=== PATIENT | female | born 1935 | race African-American/Black ===

== ENCOUNTER 2016-10-15 14:22 | Observation (INO) | payer MEDICARE, OTHER ==
[2016-10-15] MEDS ORDERED: NORMAL SALINE 1000 ML 1,000 ML IV PRN ×2 (16:03→17:25)
--- NOTE | 2016-10-15 16:05 | ER Document Report ---
ED General - General Chief Complaint: Direct Admit / Private MD Stated Complaint: POSSIBLE WEIGHT LOSS Time Seen by Provider: 10/15/16 15:43 Mode of Arrival: Ambulatory Information source: Patient TRAVEL OUTSIDE OF THE [place] IN LAST 30 DAYS: No - HPI Patient complains to provider of: generalized weakness, weight loss Onset: Other - 3 week Onset/Duration: Gradual Quality of pain: Achy Severity: Mild Pain Level: 2 Associated symptoms: Body/muscle aches, Weakness Notes: Patient is an 80-year-old female sent to the emergency room by primary care provider for admission for generalized weakness with weight loss over the past few weeks, patient reports diffuse body aches and generalized weakness, unfortunately there are no beds available at this time so she came to the emergency room for admission - Related Data Allergies/Adverse Reactions: Sulfa (Sulfonamide Antibiotics) Allergy (Verified 03/11/15 09:19) SWELLING AND ITCHING Past Medical History - General Information source: Patient - Social History Smoking Status: Unknown if Ever Smoked Family History: Reviewed & Not Pertinent Patient has suicidal ideation: No Patient has homicidal ideation: No - Past Medical History Cardiac Medical History: Reports: Hx Hypertension Denies: Hx Coronary Artery Disease, Hx Heart Attack Pulmonary Medical History: Reports: Hx Asthma - CHILD Denies: Hx Bronchitis, Hx COPD, Hx Pneumonia Neurological Medical History: Denies: Hx Cerebrovascular Accident, Hx Seizures Renal/ Medical History: Denies: Hx Peritoneal Dialysis GI Medical History: Reports: Hx Ulcer - STOMACH/SURGERY. Denies: Hx Hepatitis, Hx Hiatal Hernia Musculoskeltal Medical History: Reports Hx Arthritis Psychiatric Medical History: Reports: Hx Depression Infectious Medical History: Denies: Hx Hepatitis Past Surgical History: Reports: Hx Hysterectomy. Denies: Hx Mastectomy, Hx Open Heart Surgery, Hx Pacemaker - Immunizations Hx Diphtheria, Pertussis, Tetanus Vaccination: No Hx Pneumococcal Vaccination: 12/31/14 Review of Systems - Review of Systems Constitutional: See HPI EENT: No symptoms reported Cardiovascular: No symptoms reported Respiratory: No symptoms reported Gastrointestinal: No symptoms reported Genitourinary: No symptoms reported Female Genitourinary: No symptoms reported Musculoskeletal: See HPI Skin: No symptoms reported Hematologic/Lymphatic: No symptoms reported Neurological/Psychological: No symptoms reported -: Yes All other systems reviewed and negative Physical Exam - Vital signs Vitals: Temp Pulse Resp BP Pulse Ox 98.2 F 86 20 107/67 97 10/15/16 14:37 10/15/16 14:37 10/15/16 14:37 10/15/16 14:37 10/15/16 14:37 Interpretation: Normal - General General appearance: Appears well, Alert - HEENT Head: Normocephalic, Atraumatic Eyes: Normal Pupils: PERRL - Respiratory Respiratory status: No respiratory distress Chest status: Nontender Breath sounds: Normal Chest palpation: Normal - Cardiovascular Rhythm: Regular Heart sounds: Normal auscultation Murmur: No - Abdominal Inspection: Normal Distension: No distension Bowel sounds: Normal Tenderness: Nontender Organomegaly: No organomegaly - Back Back: Normal, Nontender - Extremities General upper extremity: Normal inspection, Nontender, Normal color, Normal ROM , Normal temperature General lower extremity: Normal inspection, Nontender, Normal color, Normal ROM , Normal temperature. No: Oleg's sign - Neurological Neuro grossly intact: Yes Cognition: Normal Orientation: AAOx4 Harshad Coma Scale Eye Opening: Spontaneous Harshad Coma Scale Verbal: Oriented Harshad Coma Scale Motor: Obeys Commands Seneca Coma Scale Total: 15 Speech: Normal - Psychological Associated symptoms: Normal affect, Normal mood - Skin Skin Temperature: Warm Skin Moisture: Dry Skin Color: Normal Course - Vital Signs Vital signs: Temp Pulse Resp BP Pulse Ox 98.8 F 78 15 134/66 H 100 10/15/16 17:46 10/15/16 17:46 10/15/16 17:46 10/15/16 17:46 10/15/16 17:46 - Laboratory Result Diagrams: 10/15/16 16:30 10/15/16 16:30 Laboratory results interpreted by me: 10/15/16 10/15/16 16:30 16:30 MCV 98 H Creatinine 1.26 H Est GFR ( Amer) 49 L Est GFR (Non-Af Amer) 41 L Direct Bilirubin 0.6 H Creatine Kinase 197 H Total Protein 8.5 H - Diagnostic Test Radiology reviewed: Image reviewed, Reports reviewed Discharge - Discharge Clinical Impression: Weight loss, Generalized weakness Condition: Fair Disposition: ADMITTED OBSERVATION Admitting Provider: [facility] Unit Admitted: Telemetry
[2016-10-15 17:01] LABS: ABSOLUTE EOSINOPHILS # (AUTO) 0.1 10^3/uL (0.0-0.6); ABSOLUTE LYMPHOCYTES (AUTO) 0.6 10^3/uL (0.5-4.7); ABSOLUTE MONOCYTES (AUTO) 0.3 10^3/uL (0.1-1.4); ABSOLUTE NEUT (AUTO) 3.2 10^3/uL (1.7-8.2); BASOPHILS % (AUTO) 0.8 % (0-2); EOSINOPHILS % (AUTO) 1.4 % (0-6); HEMATOCRIT 44.1 % (36.0-47.0); HEMOGLOBIN 14.2 g/dL (12.0-15.5); HGB HCT DIFFERENCE -1.5; LYMPHOCYTES % (AUTO) 15.5 % (13-45); MEAN CORPUSCULAR HEMOGLOBIN 31.7 pg (27.0-33.4); MEAN CORPUSCULAR HGB CONC 32.2 g/dL (32.0-36.0); MEAN CORPUSCULAR VOLUME 98 fl (80-97); RED BLOOD COUNT 4.48 10^6/uL (3.72-5.28); RED CELL DISTRIBUTION WIDTH 12.7 % (11.5-14.0); SEGMENTED NEUTROPHILS % (AUTO) 75.3 % (42-78); WHITE BLOOD COUNT 4.2 10^3/uL (4.0-10.5)
[2016-10-15 17:25] LABS: ALANINE AMINOTRANSFERASE 29 U/L (9-52); ALBUMIN 4.5 g/dL (3.5-5.0); ALKALINE PHOSPHATASE 73 U/L (38-126); ANION GAP 16 (5-19); ASPARTATE AMINO TRANSFERASE 35 U/L (14-36); BILIRUBIN,DIRECT 0.6 mg/dL (0.0-0.4); BILIRUBIN,TOTAL 0.6 mg/dL (0.2-1.3); BLOOD UREA NITROGEN 18 mg/dL (7-20); CALCIUM 10.1 mg/dL (8.4-10.2); CARBON DIOXIDE 25 mmol/L (22-30); CHLORIDE 100 mmol/L (98-107); CREATINE KINASE 197 U/L (30-135); CREATININE RESULT 1.26 mg/dL (0.52-1.25); GLUCOSE 94 mg/dL (75-110); POTASSIUM 3.9 mmol/L (3.6-5.0); SODIUM 140.9 mmol/L (137-145); TOTAL PROTEIN 8.5 g/dL (6.3-8.2)
[2016-10-15 17:49] LABS: TROPONIN I < 0.012 ng/mL
[2016-10-15 17:53] LABS: THYROID STIMULATING HORMONE 2.52 uIU/mL (0.47-4.68)
[2016-10-15] MEDS ORDERED: KETOROLAC TROMETHAMINE INJ/PF 30 MG/1 ML SDV IV ONE (20:34)
[2016-10-15] MEDS ORDERED: KETOROLAC TROMETHAMINE INJ/PF 30 MG/1 ML SDV ONE (20:39)
[2016-10-15 20:55] VITALS: BP 137/85
--- NOTE | 2016-10-15 21:42 | PDOC H&P ---
History of Present Illness Admission Date/PCP: 10/15/16 16:39 GAIL DWYER MD History of Present Illness: KELLEY BAEZA is a 80 year old female, she came to the office today with multiple complaints,malaise,weight loss ,fatique she was admitted directly from the office for evaluation of these symptoms, a CAT scan of the chest, abdomen and pelvis was done with contrast and it was negative for any pathology that would explain her weight loss or any of these symptoms. She was supposedly admitted for observation and management but she wants to go home tonight. She complained of pain in the back most likely from arthritis, she was given Toradol IV. Past Medical History Cardiac Medical History: Reports: Hypertension Pulmonary Medical History: Reports: Asthma - CHILD Neurological Medical History: Reports: Ischemic CVA Musculoskeltal Medical History: Reports: Arthritis Psychiatric Medical History: Reports: Depression Social History Smoking Status: Never Smoker Frequency of Alcohol Use: None Hx Recreational Drug Use: No Drugs: None Hx Prescription Drug Abuse: No Family History Family History: Reviewed & Not Pertinent Parental Family History Reviewed: Yes Children Family History Reviewed: Yes Sibling(s) Family History Reviewed.: Yes Medication/Allergy Allergies/Adverse Reactions: Sulfa (Sulfonamide Antibiotics) Allergy (Verified 03/11/15 09:19) SWELLING AND ITCHING Review of Systems Constitutional: PRESENT: anorexia, weight loss Eyes: ABSENT: visual disturbances Ears: ABSENT: hearing changes Cardiovascular: ABSENT: chest pain, dyspnea on exertion, edema, orthropnea, palpitations Respiratory: ABSENT: cough, hemoptysis Gastrointestinal: PRESENT: nausea Genitourinary: ABSENT: dysuria, hematuria Musculoskeletal: ABSENT: joint swelling Integumentary: ABSENT: rash, wounds Neurological: ABSENT: abnormal gait, abnormal speech, confusion, dizziness, focal weakness, syncope Psychiatric: ABSENT: anxiety, depression, homidical ideation, suicidal ideation Endocrine: ABSENT: cold intolerance, heat intolerance, menstrual abnormalities, polydipsia, polyuria Hematologic/Lymphatic: ABSENT: easy bleeding, easy bruising, lymphadenopathy Physical Exam Vital Signs: Temp Pulse Resp BP Pulse Ox 98.3 F 84 16 137/85 H 100 10/15/16 19:32 10/15/16 19:32 10/15/16 19:32 10/15/16 19:32 10/15/16 19:32 Intake & Output 0610/15/16 10/16/16 06:59 06:59 06:59 Intake Total 100 Balance 100 Weight 60.781 kg General appearance: PRESENT: no acute distress Head exam: PRESENT: atraumatic, normocephalic Eye exam: ABSENT: scleral icterus Ear exam: PRESENT: normal external ear exam Cardiovascular exam: PRESENT: RRR, +S1, +S2 Vascular exam: PRESENT: normal capillary refill GI/Abdominal exam: PRESENT: normal bowel sounds, soft Rectal exam: PRESENT: deferred Neurological exam: PRESENT: alert, awake, oriented to person, oriented to place , oriented to time, oriented to situation, CN II-XII grossly intact Psychiatric exam: PRESENT: appropriate affect, normal mood Skin exam: PRESENT: dry, intact, warm Assessment & Plan - Diagnosis (1) Generalized weakness Is this a current diagnosis for this admission?: YesPlan: Patient was admitted for observation and evaluation of symptoms of generalized weakness, weight loss, the CAT scan that was done was negative on the blood work was negative (2) Weight loss Is this a current diagnosis for this admission?: Yes
--- NOTE | 2016-10-15 23:45 | RADIOLOGY REPORT (SQ) ---
EXAM DESCRIPTION: CT CHEST WITH; CT ABD/PELVIS WITH IV ONLY COMPLETED DATE/TIME: 10/15/2016 6:51 pm; 10/15/2016 6:53 pm REASON FOR STUDY: pain, wt loss CONTRAST TYPE AND DOSE: contrast/concentration: Isovue 370.00 mg/ml; Total Contrast Delivered: 100.0 ml; Total Saline Delivered: 50.0 ml RENAL FUNCTION: GFR > 60. COMPARISON: None. TECHNIQUE: CT scan of the chest performed using helical scanning technique with dynamic intravenous contrast injection. Images reviewed with lung, soft tissue and bone windows. Reconstructed coronal a nd sagittal MPR images reviewed. All images stored on PACS. All CT scanners at this facility use dose modulation, iterative reconstruction, and/or weight based d osing when appropriate to reduce radiation dose to as low as reasonably achievable (ALARA). [facility]: Dose Right [facility]: CareDose [facility]: Dose Right [facility]: [employer]Again[employer] [facility]: Railpod RADIATION DOSE: 5.48; 12.42. LIMITATIONS: None. FINDINGS: AXILLAE: No adenopathy. CHEST WALL: No masses. No subcutaneous air. LUNGS: No nodules or masses. No pneumothorax. No infiltrates. PLEURA: No effusions. No calcifications. THYROID: No masses or significant asymmetry. HILAR AND MEDIASTINAL STRUCTURES: No identified masses or abnormal nodes. AORTA AND GREAT VESSELS: No aneurysm. No dissection. PULMONARY ARTERIES: No identified pulmonary emboli. Study not optimized for the pulmonary arteries. HEART: No pericardial effusion. HARDWARE AND LIFELINES: None. BONES: No significant finding. OTHER: No other significant finding. IMPRESSION: No acute findings. COMPARISON: None. RADIATION DOSE: 5.48; 12.42mGy. TECHNIQUE: CT scan of the abdomen and pelvis performed with intravenous and oral contrast using jonathan jessica scanning technique with dynamic intravenous contrast injection. Images reviewed with lung, soft tissue and bone windows. Reconstructed coronal and sagittal MPR images reviewed. Delayed images for evaluation of the urinary system also acquired and evaluated. All images stored on PACS. All CT scanners at this facility use dose modulation, iterative reconstruction, and/or weight based d osing when appropriate to reduce radiation dose to as low as reasonably achievable (ALARA). [facility]: Dose Right [facility]: SureCare [facility]: Dose Right [facility]: Mytonomy[employer] 4D [facility]: Railpod FINDINGS: LIVER: Normal size. No masses or dilated ducts. SPLEEN: Normal size. No focal lesions. PANCREAS: No masses. No significant calcifications. No adjacent inflammation or peripancreatic flui d collections. Pancreatic duct not dilated. GALLBLADDER: No identified stones by CT criteria. No inflammatory changes to suggest cholecystitis. ADRENAL GLANDS: No significant masses or asymmetry. RIGHT KIDNEY AND URETER: No solid masses. Multiple cysts. Small calcification. No hydronephrosis or hydroureter. LEFT KIDNEY AND URETER: No solid masses. Multiple cysts. Small calcification. No hydronephrosis or hydroureter. AORTA AND VESSELS: No aneurysm. No dissection. Renal arteries, SMA, celiac without stenosis. RETROPERITONEUM: No retroperitoneal adenopathy, hemorrhage or masses. LARGE AND SMALL BOWEL: No dilatation. No masses. No wall thickening. APPENDIX: Normal. ABDOMINAL WALL: No hernia or masses. PERITONEAL CAVITY: No free air. No free fluid. No peritoneal implants or masses. PELVIS: No mass or free fluid. Normal bladder. BONES: No acute findings. Posterior lumbar fusion hardware. OTHER: No other significant finding. IMPRESSION: No acute findings. TECHNICAL DOCUMENTATION: JOB ID: [id number] Quality ID # 436: Final reports with documentation of one or more dose reduction techniques (e.g., Au tomated exposure control, adjustment of the mA and/or kV according to patient size, use of iterative reconstruction technique) 2010 [employer]- All Rights Reserved
--- NOTE | 2016-10-15 23:45 | RADIOLOGY REPORT (SQ) ---
EXAM DESCRIPTION: CT CHEST WITH; CT ABD/PELVIS WITH IV ONLY COMPLETED DATE/TIME: 10/15/2016 6:51 pm; 10/15/2016 6:53 pm REASON FOR STUDY: pain, wt loss CONTRAST TYPE AND DOSE: contrast/concentration: Isovue 370.00 mg/ml; Total Contrast Delivered: 100.0 ml; Total Saline Delivered: 50.0 ml RENAL FUNCTION: GFR > 60. COMPARISON: None. TECHNIQUE: CT scan of the chest performed using helical scanning technique with dynamic intravenous contrast injection. Images reviewed with lung, soft tissue and bone windows. Reconstructed coronal a nd sagittal MPR images reviewed. All images stored on PACS. All CT scanners at this facility use dose modulation, iterative reconstruction, and/or weight based d osing when appropriate to reduce radiation dose to as low as reasonably achievable (ALARA). [facility]: Dose Right [facility]: CareDose [facility]: Dose Right [facility]: [employer] [facility]: [employer] RADIATION DOSE: 5.48; 12.42. LIMITATIONS: None. FINDINGS: AXILLAE: No adenopathy. CHEST WALL: No masses. No subcutaneous air. LUNGS: No nodules or masses. No pneumothorax. No infiltrates. PLEURA: No effusions. No calcifications. THYROID: No masses or significant asymmetry. HILAR AND MEDIASTINAL STRUCTURES: No identified masses or abnormal nodes. AORTA AND GREAT VESSELS: No aneurysm. No dissection. PULMONARY ARTERIES: No identified pulmonary emboli. Study not optimized for the pulmonary arteries. HEART: No pericardial effusion. HARDWARE AND LIFELINES: None. BONES: No significant finding. OTHER: No other significant finding. IMPRESSION: No acute findings. COMPARISON: None. RADIATION DOSE: 5.48; 12.42mGy. TECHNIQUE: CT scan of the abdomen and pelvis performed with intravenous and oral contrast using jonathan jessica scanning technique with dynamic intravenous contrast injection. Images reviewed with lung, soft tissue and bone windows. Reconstructed coronal and sagittal MPR images reviewed. Delayed images for evaluation of the urinary system also acquired and evaluated. All images stored on PACS. All CT scanners at this facility use dose modulation, iterative reconstruction, and/or weight based d osing when appropriate to reduce radiation dose to as low as reasonably achievable (ALARA). [facility]: Dose Right [facility]: SureCare [facility]: Dose Right [facility]: [employer] 4D [facility]: [employer] FINDINGS: LIVER: Normal size. No masses or dilated ducts. SPLEEN: Normal size. No focal lesions. PANCREAS: No masses. No significant calcifications. No adjacent inflammation or peripancreatic flui d collections. Pancreatic duct not dilated. GALLBLADDER: No identified stones by CT criteria. No inflammatory changes to suggest cholecystitis. ADRENAL GLANDS: No significant masses or asymmetry. RIGHT KIDNEY AND URETER: No solid masses. Multiple cysts. Small calcification. No hydronephrosis or hydroureter. LEFT KIDNEY AND URETER: No solid masses. Multiple cysts. Small calcification. No hydronephrosis or hydroureter. AORTA AND VESSELS: No aneurysm. No dissection. Renal arteries, SMA, celiac without stenosis. RETROPERITONEUM: No retroperitoneal adenopathy, hemorrhage or masses. LARGE AND SMALL BOWEL: No dilatation. No masses. No wall thickening. APPENDIX: Normal. ABDOMINAL WALL: No hernia or masses. PERITONEAL CAVITY: No free air. No free fluid. No peritoneal implants or masses. PELVIS: No mass or free fluid. Normal bladder. BONES: No acute findings. Posterior lumbar fusion hardware. OTHER: No other significant finding. IMPRESSION: No acute findings. TECHNICAL DOCUMENTATION: JOB ID: [id number] Quality ID # [id number]: Final reports with documentation of one or more dose reduction techniques (e.g., Au tomated exposure control, adjustment of the mA and/or kV according to patient size, use of iterative reconstruction technique) 2010 [employer]- All Rights Reserved
--- NOTE | 2016-10-18 18:31 | PDOC DISCHARGE SUMMARY ---
General - Admit/Disc Date/PCP Admission Date/Primary Care Provider: 10/15/16 16:39 GAIL DYWER MD Discharge Date: 10/15/16 - Discharge Diagnosis (1) Generalized weakness Is this a current diagnosis for this admission?: Yes (2) Weight loss Is this a current diagnosis for this admission?: Yes - Additional Information Discharge Activity: Activity As Tolerated, Balance Activity w/Rest History of Present Illness History of Present Illness: KELLEY BAEZA is a 80 year old female, she came to the office today with multiple complaints,malaise,weight loss ,fatique she was admitted directly from the office for evaluation of these symptoms, a CAT scan of the chest, abdomen and pelvis was done with contrast and it was negative for any pathology that would explain her weight loss or any of these symptoms. She was supposedly admitted for observation and management but she wants to go home tonight. She complained of pain in the back most likely from arthritis, she was given Toradol IV. Hospital Course Hospital Course: She was admitted this afternoon for evaluation of weight loss generalized body weakness fatigue, the CAT scan the blood work that was done was on negative for any acute pathology, she was treated with IV fluids, she wants to go home today Physical Exam Vital Signs: Temp Pulse Resp BP Pulse Ox 98.3 F 84 16 137/85 H 100 10/15/16 19:32 10/15/16 19:32 10/15/16 19:32 10/15/16 19:32 10/15/16 19:32 General appearance: PRESENT: no acute distress Head exam: PRESENT: atraumatic, normocephalic Eye exam: PRESENT: conjunctiva pink, EOMI, PERRLA Neck exam: PRESENT: full ROM Respiratory exam: PRESENT: clear to auscultation gretta Cardiovascular exam: PRESENT: RRR, +S1, +S2 Vascular exam: PRESENT: normal capillary refill GI/Abdominal exam: PRESENT: normal bowel sounds, soft Rectal exam: PRESENT: deferred Neurological exam: PRESENT: alert, awake, oriented to person, oriented to place , oriented to time, oriented to situation, CN II-XII grossly intact Skin exam: PRESENT: dry, intact, warm Results Impressions: Abdomen/Pelvis CT 10/15/16 16:02 IMPRESSION: No acute findings. IMPRESSION: No acute findings. Chest CT 10/15/16 16:02 IMPRESSION: No acute findings. IMPRESSION: No acute findings.
== END 2016-10-15 22:30 | disposition home or self-care (01) ==
LOC: ER 14:22 → 4N 16:39
PROVIDERS: ADMIT Internal Medicine; ATTEND Internal Medicine
DX: R53.1 Weakness (principal); R63.4 Abnormal weight loss; M54.9 Dorsalgia, unspecified; R63.0 Anorexia; R11.0 Nausea; R53.81 Other malaise; R53.83 Other fatigue; M19.90 Unspecified osteoarthritis, unspecified site; Z90.710 Acquired absence of both cervix and uterus; Z98.890 Other specified postprocedural states; Z87.11 Personal history of peptic ulcer disease; Z68.23 Body mass index [BMI] 23.0-23.9, adult
CPT/HCPCS: 36415; 84439; 82553; 82550; 84443; 85025; 80053; 84484; 71260; 74177; G0378; G0379; J1885; J7030

== ENCOUNTER 2016-10-27 12:46 | Emergency (ER) | payer MEDICARE, OTHER ==
[2016-10-27] MEDS ORDERED: ONDANSETRON 4 MG TAB.RAPDIS PO ONE ×2 (13:28→15:16)
--- NOTE | 2016-10-27 13:28 | ER Document Report ---
ED Medical Screen (RME) - General Chief Complaint: Nausea/Vomiting Stated Complaint: VOMITING Time Seen by Provider: 10/27/16 13:23 Notes: Patient is an 80-year-old female who presents with 1 day of nausea and vomiting. She was admitted to the hospital 2 weeks ago for weight loss and lack of appetite. Since then she is felt the same way and has not eaten much. Last bowel movement was 2 days ago. She denies abdominal pain, urinary symptoms , fevers, chest pain, shortness of breath, back pain or headache. PE: Abdomen soft and non-tender. RRR. Lungs CTAB. I have greeted and performed a rapid initial assessment of this patient. A comprehensive ED assessment and evaluation of the patient, analysis of test results and completion of the medical decision making process will be conducted by additional ED providers. TRAVEL OUTSIDE OF THE [place] IN LAST 30 DAYS: No - Related Data Allergies/Adverse Reactions: Sulfa (Sulfonamide Antibiotics) Allergy (Verified 03/11/15 09:19) SWELLING AND ITCHING Past Medical History - Past Medical History Cardiac Medical History: Reports: Hx Hypertension Denies: Hx Coronary Artery Disease, Hx Heart Attack Pulmonary Medical History: Reports: Hx Asthma - CHILD Denies: Hx Bronchitis, Hx COPD, Hx Pneumonia Neurological Medical History: Denies: Hx Cerebrovascular Accident, Hx Seizures Renal/ Medical History: Denies: Hx Peritoneal Dialysis GI Medical History: Reports: Hx Ulcer - STOMACH/SURGERY. Denies: Hx Hepatitis, Hx Hiatal Hernia Musculoskeltal Medical History: Reports Hx Arthritis Psychiatric Medical History: Reports: Hx Depression Infectious Medical History: Denies: Hx Hepatitis Past Surgical History: Reports: Hx Hysterectomy. Denies: Hx Mastectomy, Hx Open Heart Surgery, Hx Pacemaker - Immunizations Hx Diphtheria, Pertussis, Tetanus Vaccination: No Physical Exam - Vital signs Vitals: Temp Pulse Resp BP Pulse Ox 98.3 F 68 18 142/63 H 94 10/27/16 12:50 10/27/16 12:50 10/27/16 12:50 10/27/16 12:50 10/27/16 12:50 Course - Vital Signs Vital signs: Temp Pulse Resp BP Pulse Ox 98.3 F 68 18 142/63 H 94 10/27/16 12:50 10/27/16 12:50 10/27/16 12:50 10/27/16 12:50 10/27/16 12:50
--- NOTE | 2016-10-27 14:29 | ER Document Report ---
ED General - General Chief Complaint: Nausea/Vomiting Stated Complaint: VOMITING Time Seen by Provider: 10/27/16 13:23 Notes: Patient is here with complaint of vomiting this morning and feeling weak this morning. She says she has vomited a couple of times. Does not eat very well chronically. Has chronic constipation but does not feel there is been any change in her bowel movements today. No diarrhea. Has not had any fever. Denies any UTI symptoms. Says she occasionally has some shortness of breath, but no cough or cold or chest congestion. Patient has had a hysterectomy and perhaps one other abdominal surgery that she cannot recall. Currently on medications for hypertension. Not diabetic. No heart disease. Has chronic back and leg pains. TRAVEL OUTSIDE OF THE [place] IN LAST 30 DAYS: No - Related Data Allergies/Adverse Reactions: Sulfa (Sulfonamide Antibiotics) Allergy (Verified 03/11/15 09:19) SWELLING AND ITCHING Past Medical History - Social History Smoking Status: Never Smoker Family History: Reviewed & Not Pertinent Patient has suicidal ideation: No Patient has homicidal ideation: No - Past Medical History Cardiac Medical History: Reports: Hx Hypertension Denies: Hx Coronary Artery Disease Pulmonary Medical History: Reports: Hx Asthma - CHILD Endocrine Medical History: Denies: Hx Diabetes Mellitus Type 1, Hx Diabetes Mellitus Type 2 GI Medical History: Reports: Hx Ulcer - STOMACH/SURGERY Musculoskeltal Medical History: Reports Hx Arthritis Psychiatric Medical History: Reports: Hx Depression Past Surgical History: Reports: Hx Hysterectomy - Immunizations Hx Diphtheria, Pertussis, Tetanus Vaccination: No Hx Pneumococcal Vaccination: 12/31/14 Review of Systems - Review of Systems Notes: REVIEW OF SYSTEMS: CONSTITUTIONAL : Denies fever. EENT: Denies eye, ear, nose or mouth or throat pain or other symptoms. CARDIOVASCULAR: Denies chest pain. RESPIRATORY: Denies cough, chest congestion, but occasional shortness of breath. GASTROINTESTINAL: Denies abdominal pain but has vomiting and nausea. Chronic constipation. GENITOURINARY: Denies difficulty or painful urinating, urinary frequency, blood in urine. MUSCULOSKELETAL: Denies back or neck pain. Denies joint pain or swelling. SKIN: Denies rash or skin lesions. NEUROLOGICAL: Denies LOC or altered mental status. Denies headache. Denies sensory loss or motor deficits. ALL OTHER SYSTEMS REVIEWED AND NEGATIVE. Physical Exam - Vital signs Vitals: Temp Pulse Resp BP Pulse Ox 98.3 F 68 18 142/63 H 94 10/27/16 12:50 10/27/16 12:50 10/27/16 12:50 10/27/16 12:50 10/27/16 12:50 Interpretation: Normal - Notes Notes: PHYSICAL EXAMINATION: GENERAL: Well-appearing, in no acute distress. Vital signs are all essentially normal. HEAD: Atraumatic, normocephalic. ENT: oropharynx clear without exudates. Moist mucous membranes. NECK: Normal range of motion, supple. LUNGS: Breath sounds clear and equal bilaterally. HEART: Regular rate and rhythm without murmurs. ABDOMEN: Soft, nontender. No guarding or rebound. No masses felt. No bruits heard. BACK: No tenderness throughout entire back. EXTREMITIES: Normal range of motion without pain. NEUROLOGICAL: Normal speech, normal gait. Normal sensory, motor, and reflex exams. Awake, alert, and oriented x3. PSYCH: Normal mood, normal affect. SKIN: Warm, dry, no rashes. Course - Re-evaluation Re-evalutation: 10/27/16 15:28 Labs are almost all normal. Creatinine is just slightly elevated. CPK also just slightly elevated. No evidence of UTI, although I will culture her urine. No evidence of significant dehydration. No indications for admission to the hospital. Patient says she is feeling better since she came in and was given the Zofran in triage. She says she is now feeling hungry. Reexamined her abdomen is soft and nontender still. I am going to slip her over and get an acute abdominal series and if it does not show any bowel pattern concerning for obstruction, I am going to discharge her on some Zofran to follow up or return as needed. - Vital Signs Vital signs: Temp Pulse Resp BP Pulse Ox 98.3 F 68 14 142/63 H 100 10/27/16 12:50 10/27/16 12:50 10/27/16 15:03 10/27/16 12:50 10/27/16 15:03 - Laboratory Result Diagrams: 10/27/16 14:05 10/27/16 14:05 Laboratory results interpreted by me: 10/27/16 10/27/16 10/27/16 14:05 14:05 14:40 Seg Neutrophils % 86.7 H Lymphocytes % 6.7 L Absolute Lymphocytes 0.3 L Creatinine 1.55 H Est GFR ( Amer) 39 L Est GFR (Non-Af Amer) 32 L Creatine Kinase 254 H Ur Leukocyte Esterase TRACE H Discharge - Discharge Clinical Impression: Vomiting Qualifiers: Vomiting type: unspecified Vomiting Intractability: non-intractable Nausea presence: with nausea Qualified Code(s): R11.2 - Nausea with vomiting, unspecified Condition: Stable Disposition: HOME, SELF-CARE Additional Instructions: VOMITING: Vomiting (or nausea without vomiting) can be caused by many other different problems. It can mean that something's wrong with the stomach, such as ulcers or inflammation or the intestinal tract, such as appendicitis. But it can also be a symptom of a problem that has nothing to do with the stomach or intestines. Vomiting is common with severe headaches, earaches, tonsillitis, and kidney infections, etc. We see it with pneumonia or heart attacks. Drugs can cause nausea and vomiting. Many abdominal problems cause vomiting; for example, gallstones, kidney stones, pancreatitis, and intestinal obstruction ( blocked bowels). In most cases, curing the vomiting depends on fixing the problem that caused it. For temporary relief, we may use an anti-nausea medicine. For home use, we can prescribe suppositories, chewable pills, pills that dissolve in the mouth, or liquid anti-nausea drugs. If the vomiting seems to be caused by a problem in the stomach, acid-suppressing drugs may be prescribed as well. It's important to avoid dehydration. Sip small amounts of clear liquids ( soft drinks, tea, broth, etc) . Try to take fluids frequently even if you are vomiting to prevent dehydration. Take increasing amounts of fluid and when liquids are being consumed successfully, advance to small amounts of bland food (toast, soups, mashed potatoes, etc.) until you are able to resume a regular diet. Avoid aspirin, tobacco, and alcohol. If the vomiting worsens, if the problem that's making you vomit worsens, or if there's evidence of bleeding in the stomach (such as black, tarry stool, or bloody or black vomit), you should return immediately. Also, return if abdominal pain worsens or becomes localized to one area or you develop high fever. Call your doctor if you aren't improved in 24 hours. VIRAL SYNDROME: The physician has diagnosed a viral infection. Viruses not only cause "colds," but can cause many different symptoms including generalized aching, fever, headache, cough, diarrhea, nausea, vomiting, and fatigue. The treatment, for the most part, is simply relief of symptoms. This means that antibiotics are usually not given. Rest, fluids, pain medications and, occasionally, medication for the specific symptoms that are most bothersome will be prescribed. Use good handwashing to avoid passing the virus to others. Shared toys should be cleaned with disinfectant. Clean the toilets, sinks, and counter surfaces in bathrooms. Launder clothing in hot water. Contact the physician if you develop any new or unusual symptoms such as severe headache, stiff neck, high fever, chest pain, productive cough, or shortness of breath. You should be rechecked if you don't see marked improvement within seven to 10 days. NORMAL EXAM AND WORKUP: At this time, your examination and workup show no significant abnormality. No significant abnormal physical findings were noted. All laboratory, EKG, and imaging (x-ray, CT scans, ultrasound) studies that were ordered show no significant abnormality. Although your examination and all studies that were ordered showed no significant abnormal finding, there are no examinations and no studies that are 100% accurate. There is always the possibility that some abnormality could exist and not be detected with physical examination or within the limits and capabilities of laboratory and other studies. You should return or follow up as you were instructed on your visit today for further evaluation if your symptoms do not resolve. ANTINAUSEA MEDICATION: You have been given a medication to suppress nausea and vomiting. This type of medication can be given as a shot, pill, or suppository. It will usually last for many hours. Pills and shots usually last six to eight hours. For the typical illness, only one or two doses of the medication may be necessary. Mild lightheadedness may occur. This type of medicine can cause drowsiness. Do not drive or operate dangerous machinery while under its influence. Do not mix with alcohol. See your doctor at once if you have muscle spasms or tightness, or uncontrollable motions (particularly of the neck, mouth, or jaw). Persistent vomiting or severe lightheadedness should also be evaluated by the physician. FOLLOW-UP CARE: If you have been referred to a physician for follow-up care, call the physician s office for an appointment as you were instructed or within the next two days. If you experience worsening or a significant change in your symptoms, notify the physician immediately or return to the Emergency Department at any time for re-evaluation. Follow up with your primary care provider on Tuesday if you are not doing any better. At any time, you are welcome to come back to the emergency room to be reevaluated. Prescriptions: Ondansetron [Zofran Odt 4 mg Tablet] 1 - 2 tab PO Q4H PRN #10 tab.rapdis PRN Reason: For Nausea/Vomiting
[2016-10-27 14:41] LABS: ABSOLUTE LYMPHOCYTES (AUTO) 0.3 10^3/uL (0.5-4.7); ABSOLUTE MONOCYTES (AUTO) 0.2 10^3/uL (0.1-1.4); ABSOLUTE NEUT (AUTO) 3.8 10^3/uL (1.7-8.2); BASOPHILS % (AUTO) 0.6 % (0-2); EOSINOPHILS % (AUTO) 0.6 % (0-6); HEMATOCRIT 37.5 % (36.0-47.0); HEMOGLOBIN 12.6 g/dL (12.0-15.5); HGB HCT DIFFERENCE 0.3; LYMPHOCYTES % (AUTO) 6.7 % (13-45); MEAN CORPUSCULAR HEMOGLOBIN 32.5 pg (27.0-33.4); MEAN CORPUSCULAR HGB CONC 33.5 g/dL (32.0-36.0); MEAN CORPUSCULAR VOLUME 97 fl (80-97); MONOCYTES % (AUTO) 5.4 % (3-13); RED BLOOD COUNT 3.87 10^6/uL (3.72-5.28); RED CELL DISTRIBUTION WIDTH 13.5 % (11.5-14.0); SEGMENTED NEUTROPHILS % (AUTO) 86.7 % (42-78); WHITE BLOOD COUNT 4.4 10^3/uL (4.0-10.5)
[2016-10-27 14:54] LABS: ALANINE AMINOTRANSFERASE 37 U/L (9-52); ALBUMIN 3.7 g/dL (3.5-5.0); ALKALINE PHOSPHATASE 60 U/L (38-126); ANION GAP 12 (5-19); ASPARTATE AMINO TRANSFERASE 33 U/L (14-36); BILIRUBIN,DIRECT 0.3 mg/dL (0.0-0.4); BILIRUBIN,TOTAL 0.3 mg/dL (0.2-1.3); BLOOD UREA NITROGEN 18 mg/dL (7-20); CALCIUM 9.4 mg/dL (8.4-10.2); CARBON DIOXIDE 25 mmol/L (22-30); CHLORIDE 106 mmol/L (98-107); CREATINE KINASE 254 U/L (30-135); CREATININE RESULT 1.55 mg/dL (0.52-1.25); GLUCOSE 107 mg/dL (75-110); LIPASE 143.4 U/L (23-300); SODIUM 142.7 mmol/L (137-145)
[2016-10-27 15:01] LABS: APPEARANCE,URINE SLIGHTLY-CLOUDY; BILIRUBIN,URINE NEGATIVE (NEGATIVE); GLUCOSE, URINE NEGATIVE (NEGATIVE); KETONES,URINE NEGATIVE (NEGATIVE); LEUKOCYTE ESTERASE,URINE TRACE (NEGATIVE); NITRITE,URINE NEGATIVE (NEGATIVE); PROTEIN,URINE NEGATIVE (NEGATIVE); URINE SPECIFIC GRAVITY 1.026; UROBILINOGEN,URINE NEGATIVE mg/dL (<2.0)
[2016-10-27 16:45] VITALS: BP 142/78
--- NOTE | 2016-10-27 16:47 | RADIOLOGY REPORT (SQ) ---
EXAM DESCRIPTION: ACUTE ABDOMEN SERIES COMPLETED DATE/TIME: 10/27/2016 4:16 pm REASON FOR STUDY: Vomiting COMPARISON: None. NUMBER OF VIEWS: Three views. TECHNIQUE: Frontal chest, supine abdomen and upright/decubitus abdomen radiographic images acquired. LIMITATIONS: None. FINDINGS: CHEST: Atelectasis or scarring noted the right lung base. No focal infiltrates. No pneum othorax. No significant effusion. FREE AIR: None. No abnormal gas collections. BOWEL GAS PATTERN: Nonobstructive pattern. No dilated loops or air fluid levels. CALCIFICATIONS: No suspicious calcifications. HARDWARE: Prior lower lumbar spine fusion and decompression. Numerous surgical clips are noted throu ghout the abdomen. EKG leads overlie the abdomen and chest. . SOFT TISSUES: No gross mass or suggestion of organomegaly. BONES: No acute fracture. No worrisome bone lesions. OTHER: No other significant finding. IMPRESSION: NO RADIOGRAPHIC EVIDENCE FOR ACUTE ABDOMINAL DISEASE. Scarring or atelectasis noted the right lung base. TECHNICAL DOCUMENTATION: JOB ID: [id number] [employer]- All Rights Reserved
== END 2016-10-27 17:08 | disposition home or self-care (01) ==
LOC: ER 12:46
DX: R11.2 Nausea with vomiting, unspecified (principal); K59.00 Constipation, unspecified
CPT/HCPCS: 99284; 36415; 87086; 82550; 83690; 85025; 80053; 81001; 84484; 74022; A9270; S0119

== ENCOUNTER → 2016-12-24 | Outpatient (CLI) | payer MEDICARE, OTHER ==
--- NOTE | 2016-12-24 10:26 | RADIOLOGY REPORT (SQ) ---
EXAM DESCRIPTION: MRI LUMBAR SPINE COMBO COMPLETED DATE/TIME: 12/24/2016 9:41 am REASON FOR STUDY: MYALGIA (M79.1) M79.1 MYALGIA COMPARISON: Most recent 12/19/2015. TECHNIQUE: Sagittal and Axial imaging includes T1, T1 post gadolinium, T2, STIR and gradient echo se quences. Coronal T2/HASTE imaging. CONTRAST TYPE AND DOSE: 10 mL Multihance. RENAL FUNCTION: GFR > 60. LIMITATIONS: Motion. Susceptibility artifact. FINDINGS: Only significant change is at the L1-2 level. There is a left paracentral and downward di sc protrusion which contacts the transiting left L2 nerve root in the canal. This results in moderat e spinal stenosis. Longstanding spinal stenosis and lateral recess stenosis at L2-3 which is unchanged. Grade 1 spondyl olisthesis L4-5 status post posterior decompression at L3-4 and posterior fusion L3 through L5 with s pacer bars. No nerve root clumping. No obvious significant marrow abnormality. IMPRESSION: Extensive postsurgical changes. Disc herniation at L1- 2 resulting in spinal stenosis a nd contact with the transiting left L2 nerve root. Chronic spinal stenosis L2-3. TECHNICAL DOCUMENTATION: JOB ID: [id number] [employer]- All Rights Reserved
== END ==
LOC: RAD 08:02
PROVIDERS: ATTEND Student in an Organized Health Care Education/Training Program
DX: M79.1 Myalgia (principal)
CPT/HCPCS: 82565; 72158; A9577

== ENCOUNTER → 2017-02-28 | Outpatient (CLI) | payer MEDICARE, OTHER ==
--- NOTE | 2017-02-28 14:48 | RADIOLOGY REPORT (SQ) ---
EXAM DESCRIPTION: LUMBAR SPINE W/FLEX/EXT COMPLETED DATE/TIME: 02/28/2017 11:30 am REASON FOR STUDY: RADICULOPATHY, LUMBAR REGION M54.16 RADICULOPATHY, LUMBAR REGION COMPARISON: None. TECHNIQUE: AP and lateral neutral, flexion and extension radiographs of the spine. NUMBER OF VIEWS: Four views. LIMITATIONS: None. FINDINGS: Convex right scoliosis. Status post posterior decompression and fusion L3 through L5 with spacer bars. Grade 1 spondylolisthesis L4-5. No abnormal motion with flexion and extension. OTHER: No other significant finding. IMPRESSION: NO RADIOGRAPHIC EVIDENCE OF ABNORMAL MOTION. TECHNICAL DOCUMENTATION: JOB ID: [id number] [employer]- All Rights Reserved
== END ==
LOC: OD 11:06
PROVIDERS: ATTEND Neurological Surgery
DX: M54.16 Radiculopathy, lumbar region (principal)
CPT/HCPCS: 72114

== ENCOUNTER 2018-02-09 10:57 | Inpatient (IN) | payer MEDICARE ==
--- NOTE | 2018-02-09 11:29 | ER Document Report ---
ED General - General Mode of Arrival: Ambulatory Information source: Patient TRAVEL OUTSIDE OF THE [place] IN LAST 30 DAYS: No <FRANCISCO TRINIDAD - Last Filed: 02/09/18 12:39> <AMY GUTIERREZ - Last Filed: 02/09/18 17:38> - General Chief Complaint: Altered Mental Status Stated Complaint: WEAKNESS Time Seen by Provider: 02/09/18 11:16 Notes: Patient is an 82-year-old female that presents to the emergency department today with complaints of right knee pain. Patient is able to answer most questions but there is difficulty in responding to somewhat complicated questions so history is slightly limited. Of note: There is some concern for the patient being possibly over-medicated. There are medicines intermixed into wrong bottles including a percocet tablet in her blood pressure med bottle. (FRANCISCO TRINIDAD) The patient is not a TPA candidate. There is no focal weakness. There are no speech deficits. She does seem a little drowsy and confused. She was last seen normal at 9:00 last night. (AMY GUTIERREZ) - Related Data Allergies/Adverse Reactions: Sulfa (Sulfonamide Antibiotics) Allergy (Verified 03/11/15 09:19) SWELLING AND ITCHING Past Medical History - General Information source: Patient - Social History Smoking Status: Unknown if Ever Smoked Frequency of alcohol use: None Drug Abuse: None Lives with: Family Family History: Reviewed & Not Pertinent - Past Medical History Cardiac Medical History: Reports: Hx Hypertension Pulmonary Medical History: Reports: Hx Asthma - CHILD GI Medical History: Reports: Hx Ulcer Musculoskeletal Medical History: Reports Hx Arthritis Psychiatric Medical History: Reports: Hx Depression Past Surgical History: Reports: Hx Hysterectomy - Immunizations Hx Diphtheria, Pertussis, Tetanus Vaccination: No Hx Pneumococcal Vaccination: 12/31/14 <FRANCISCO TRINIDAD - Last Filed: 02/09/18 12:39> Review of Systems - Review of Systems Constitutional: No symptoms reported EENT: No symptoms reported Cardiovascular: No symptoms reported Respiratory: No symptoms reported Gastrointestinal: No symptoms reported Genitourinary: No symptoms reported Female Genitourinary: No symptoms reported Musculoskeletal: See HPI, Joint pain - Right knee Skin: No symptoms reported Hematologic/Lymphatic: No symptoms reported Neurological/Psychological: No symptoms reported -: Yes All other systems reviewed and negative <FRANCISCO TRINIDAD - Last Filed: 02/09/18 12:39> Physical Exam <AMOSFRANCISCO - Last Filed: 02/09/18 12:39> <AMY GUTIERREZ - Last Filed: 02/09/18 17:38> - Vital signs Vitals: Resp Pulse Ox 16 97 02/09/18 11:12 02/09/18 11:12 - Notes Notes: Physical Exam: General: Alert, very soft spoken so sometimes difficult to understand, answers most questions appropriately, unable to answer any somewhat complicated questions. HEENT: Normocephalic. Atraumatic. PERRL. Extraocular movements intact. Oropharynx clear. Neck: Supple. Non-tender. Respiratory: No respiratory distress. Clear and equal breath sounds bilaterally. Cardiovascular: Regular rate and rhythm. Abdominal: Normal Inspection. Non-tender. No distension. Normal Bowel Sounds. Back: Non-tender. No deformity or step off. Extremities: Moves all four extremities. Upper extremities: Normal inspection. Normal ROM. Lower extremities: Healing surgical scar over right knee consistent with recent total right knee replacement. Right lower extremities edematous, right knee is swollen. Mild pain with palpation of the right knee. Neurological: Normal cognition. AAOx4. Normal speech. Psychological: Normal affect. Normal Mood. Skin: Warm. Dry. Normal color. (FRANCISCO TRINIDAD) Course - Laboratory Result Diagrams: 02/09/18 10:47 02/09/18 10:47 <FRANCISCO TRINIDAD - Last Filed: 02/09/18 12:39> - Laboratory Result Diagrams: 02/09/18 10:47 02/09/18 10:47 - EKG Interpretation by Ut EKG shows normal: Sinus rhythm, Lesage, Intervals, ST-T Waves. abnormal: QRS Complexes - Inferior Q waves, questionable old inferior MD Rate: Normal - 60 Rhythm: NSR Voltage: Consistant with [facility] - Consults Dr. Ramsey Time consulted: 15:20 Consulted provider: will see as inpatient <AMY GUTIERREZ - Last Filed: 02/09/18 17:38> - Re-evaluation Re-evalutation: 02/09/18 15:07 The patient's friends who help care for her arrived for the visit. One friend reports that she places the patient's medications and a container that has her daily schedule of morning afternoon and evening pills. She reports that there appear to be 4 days of medications missing today, and that she filled the dispensing box last night. By history the narcotics are not and the dispensing box and are taken on a as needed basis. There is no way for me to tell if an excessive amount of narcotics were taken during the night. The patient does live alone, and has been home from rehab for about 1 week. Plan to talk to her about whether or not she has been using her walker since she was discharged home , she is quite vague and does seem a little confused and unable to answer the questions. 02/09/18 17:33 The patient became much more awake later this afternoon, and was requesting pain medication for her knee. On talking with her about her pills and narcotics , the answers make me suspect that she may have taken too much Percocet and that may be causing the symptoms we are observing today. She still is not medically cleared to be discharged home to be by herself. She will stay in the hospital and be further worked up and seen by physical therapy. (AMY GUTIERREZ) - Vital Signs Vital signs: Temp Pulse Resp BP Pulse Ox 13 127/68 H 99 02/09/18 14:01 02/09/18 14:01 02/09/18 14:01 - Laboratory Laboratory results interpreted by me: 02/09/18 10:47 BUN 21 H Est GFR ( Amer) 58 L Est GFR (Non-Af Amer) 48 L Discharge <FRANCISCO TRINIDAD - Last Filed: 02/09/18 12:39> - Discharge Admitting Provider: [facility] Unit Admitted: [facility] <AMY GUTIERREZ - Last Filed: 02/09/18 17:38> - Discharge Clinical Impression: Postoperative pain of right knee Altered mental status Qualifiers: Altered mental status type: unspecified Qualified Code(s): R41.82 - Altered mental status, unspecified Condition: Stable Disposition: ADMITTED INPATIENT Scribe Attestation: 02/09/18 12:20 I personally performed the services described in the documentation, reviewed and edited the documentation which was dictated to the scribe in my presence, and it accurately records my words and actions. (AMY GUTIERREZ)
[2018-02-09 11:44] LABS: ALANINE AMINOTRANSFERASE 22 U/L (9-52); ALBUMIN 4.1 g/dL (3.5-5.0); ALKALINE PHOSPHATASE 61 U/L (38-126); ANION GAP 11 (5-19); ASPARTATE AMINO TRANSFERASE 34 U/L (14-36); BILIRUBIN,DIRECT 0.2 mg/dL (0.0-0.4); BILIRUBIN,TOTAL 0.5 mg/dL (0.2-1.3); BLOOD UREA NITROGEN 21 mg/dL (7-20); CALCIUM 9.5 mg/dL (8.4-10.2); CARBON DIOXIDE 26 mmol/L (22-30); CHLORIDE 107 mmol/L (98-107); CREATINE KINASE 66 U/L (30-135); GLUCOSE 103 mg/dL (75-110); POTASSIUM 4.3 mmol/L (3.6-5.0); SODIUM 143.6 mmol/L (137-145); TOTAL PROTEIN 7.9 g/dL (6.3-8.2)
[2018-02-09 11:48] LABS: ABSOLUTE EOSINOPHILS # (AUTO) 0.1 10^3/uL (0.0-0.6); ABSOLUTE LYMPHOCYTES (AUTO) 0.6 10^3/uL (0.5-4.7); ABSOLUTE MONOCYTES (AUTO) 0.3 10^3/uL (0.1-1.4); ABSOLUTE NEUT (AUTO) 3.4 10^3/uL (1.7-8.2); BASOPHILS % (AUTO) 0.7 % (0-2); EOSINOPHILS % (AUTO) 2.8 % (0-6); HEMATOCRIT 37.8 % (36.0-47.0); HEMOGLOBIN 12.5 g/dL (12.0-15.5); MEAN CORPUSCULAR HEMOGLOBIN 32.2 pg (27.0-33.4); MEAN CORPUSCULAR HGB CONC 33.1 g/dL (32.0-36.0); MEAN CORPUSCULAR VOLUME 97 fl (80-97); MONOCYTES % (AUTO) 6.8 % (3-13); PLATELET COUNT 217 10^3/uL (150-450); RED BLOOD COUNT 3.89 10^6/uL (3.72-5.28); SEGMENTED NEUTROPHILS % (AUTO) 76.7 % (42-78); TOTAL CELLS COUNTED % (AUTO) 100 %; WHITE BLOOD COUNT 4.4 10^3/uL (4.0-10.5)
[2018-02-09 11:56] LABS: CREATINE KINASE MB 0.42 ng/mL (<4.55)
[2018-02-09 11:57] LABS: TROPONIN I < 0.012 ng/mL
[2018-02-09 13:57] LABS: APPEARANCE,URINE CLEAR; BILIRUBIN,URINE NEGATIVE (NEGATIVE); COLOR,URINE YELLOW; GLUCOSE, URINE NEGATIVE (NEGATIVE); KETONES,URINE NEGATIVE (NEGATIVE); LEUKOCYTE ESTERASE,URINE NEGATIVE (NEGATIVE); NITRITE,URINE NEGATIVE (NEGATIVE); PROTEIN,URINE NEGATIVE (NEGATIVE); URINE SPECIFIC GRAVITY 1.018; UROBILINOGEN,URINE NEGATIVE mg/dL (<2.0)
--- NOTE | 2018-02-09 16:01 | RADIOLOGY REPORT (SQ) ---
EXAM DESCRIPTION: CHEST SINGLE VIEW COMPLETED DATE/TIME: 02/09/2018 3:44 pm REASON FOR STUDY: Altered mental status COMPARISON: CT 10/15/2016 chest x-ray 01/31/2014 EXAM PARAMETERS: NUMBER OF VIEWS: One view. TECHNIQUE: Single frontal radiographic view of the chest acquired. RADIATION DOSE: NA LIMITATIONS: None. FINDINGS: LUNGS AND PLEURA: No opacities, masses or pneumothorax. No pleural effusion. MEDIASTINUM AND HILAR STRUCTURES: No masses. Contour normal. HEART AND VASCULAR STRUCTURES: Heart normal in size. Normal vasculature. BONES: No acute findings. HARDWARE: None in the chest. OTHER: No other significant finding. IMPRESSION: NO ACUTE RADIOGRAPHIC FINDING IN THE CHEST. TECHNICAL DOCUMENTATION: JOB ID: [id number] [email or web address]- All Rights Reserved Reading location - IP/workstation name: [email or web address]
[2018-02-09 16:08] LABS: URINE AMPHETAMINES SCREEN NEGATIVE; URINE BARBITURATES SCREEN NEGATIVE; URINE BENZODIAZEPINES SCREEN NEGATIVE; URINE COCAINE SCREEN NEGATIVE; URINE MARIJUANA (THC) SCREEN NEGATIVE; URINE METHADONE SCREEN NEGATIVE; URINE PHENCYCLIDINE SCREEN NEGATIVE
[2018-02-09] MEDS ORDERED: OXYCODONE-ACETAMINOPHEN 5-325 MG TABLET PO PRN (18:35)
--- NOTE | 2018-02-09 19:02 | PDOC H&P ---
History of Present Illness Admission Date/PCP: 02/09/18 15:31 CHRISTIANOHOSSEIN BECKER Patient complains of: Altered mental status, weakness, right knee pain History of Present Illness: KELLEY BAEZA is a 82 year old female known to my practice who presented to the ED with compliant of altered mental state, generalized weakness and right knee pain. Patient friends brought her to the ED with reported that she was not her usual self. Patient was recently discharged home following right total knee arthroplasty surgery. There was concern about over medication with her pain management. Her friend reported missing about 4 days of her pre ported medication. Patient was initially difficult to arouse in the ED. She eventually came around and denied taking any medication since last night. She reported going grocery shopping and upon getting home when to bed and woke up dia find herself in this condition. she is very lucid about her right knee replacement surgery by Dr Rhoades at [facility] in [place] but less specific about the date of her surgery. he denied any fever or chills. No nausea , vomiting, abdominal pain, urinary frequency, diarrhea or constipation. In vie of her clinical evaluation findings and concern for medication overdose she was advices regarding hospitalization. Her laboratory and radiologic evaluation were negative for any significant pathology. Her morbidities include Hypertension, chronic gastritis / Ulcer, Arthritis, and Depression. Past Medical History Cardiac Medical History: Reports: Hypertension Denies: Coronary Artery Disease, Myocardial Infarction Pulmonary Medical History: Reports: Asthma - CHILD Denies: Bronchitis, Chronic Obstructive Pulmonary Disease (COPD), Pneumonia Neurological Medical History: Denies: Seizures Endocrine Medical History: Denies: Diabetes Mellitus Type 1, Diabetes Mellitus Type 2 GI Medical History: Denies: Hepatitis, Hiatal Hernia Musculoskeltal Medical History: Reports: Arthritis Psychiatric Medical History: Reports: Depression Hematology: Denies: Anemia, Sickle Cell Disease Past Surgical History Past Surgical History: Reports: Hysterectomy Denies: Amputation, Mastectomy, Pacemaker Social History Lives with: Family Smoking Status: Never Smoker Frequency of Alcohol Use: None Hx Recreational Drug Use: No Drugs: None Hx Prescription Drug Abuse: No - Advance Directive Resuscitation Status: Full Code Family History Family History: Reviewed & Not Pertinent Parental Family History Reviewed: Yes Children Family History Reviewed: Yes Sibling(s) Family History Reviewed.: Yes Medication/Allergy Home Medications: Aspirin/Dipyridamole [Aggrenox 25 mg-200 mg Capsule] 1 cap PO BID 10/11/18 Duloxetine HCl [Cymbalta] 60 mg PO DAILY 02/09/18 Hydrocodone/Acetaminophen [[place] 7.5-325 mg Tablet] 1 tab PO DAILYP PRN Lorazepam [Ativan 1 mg Tablet] 1 mg PO QHS 02/09/18 Losartan/Hydrochlorothiazide [Hyzaar 100-12.5 Tablet] 1 tab PO DAILY 02/09/18 Melatonin [Melatonin 3 mg Tablet] 3 mg PO QHS 02/09/18 Metoprolol Succinate [Toprol Xl 50 mg Tab.sr] 50 mg PO DAILY 02/09/18 Multivit-Min/Iron/Folic/Lutein [Centrum Silver Women Tablet] 1 tab PO DAILY 03/19 Rizatriptan Benzoate [Maxalt] 10 mg PO DAILYP PRN 02/09/18 Allergies/Adverse Reactions: Sulfa (Sulfonamide Antibiotics) Allergy (Verified 03/11/15 09:19) SWELLING AND ITCHING Review of Systems Constitutional: PRESENT: weakness Eyes: PRESENT: visual disturbances Ears: ABSENT: hearing changes Nose, Mouth, and Throat: ABSENT: as per HPI, headache(s), mouth pain, sore throat, vertigo, other Cardiovascular: ABSENT: chest pain, dyspnea on exertion, edema, orthropnea, palpitations Respiratory: ABSENT: cough, hemoptysis Gastrointestinal: ABSENT: abdominal pain, constipation, diarrhea, hematemesis, hematochezia, nausea, vomiting Genitourinary: ABSENT: dysuria, hematuria Musculoskeletal: PRESENT: deformity - multiple joints involvement with arthritis and recent right knee arthroplasty surgery, joint swelling - relative and associated with right knee joint. Integumentary: ABSENT: rash, wounds Neurological: PRESENT: weakness - generalized and patient is outside of window for TPA therapy.. ABSENT: abnormal gait, abnormal speech, confusion, dizziness , focal weakness, syncope Allergic/Immunologic: ABSENT: seasonal rhinorrhea Physical Exam Vital Signs: Temp Pulse Resp BP Pulse Ox 97.9 F 63 17 153/82 H 97 02/09/18 18:12 02/09/18 18:12 02/09/18 18:12 02/09/18 18:12 02/09/18 18:12 Intake & Output 02/08/18 02/09/18 02/10/18 06:59 06:59 06:59 Weight 66.2 kg General appearance: PRESENT: no acute distress, disheveled Head exam: PRESENT: atraumatic, normocephalic Eye exam: PRESENT: conjunctiva pink, EOMI, PERRLA. ABSENT: scleral icterus Ear exam: PRESENT: normal external ear exam Mouth exam: PRESENT: moist, tongue midline Neck exam: PRESENT: full ROM. ABSENT: carotid bruit, JVD, lymphadenopathy, thyromegaly Respiratory exam: PRESENT: clear to auscultation gretta Vascular exam: PRESENT: normal capillary refill. ABSENT: pallor GI/Abdominal exam: PRESENT: normal bowel sounds, soft. ABSENT: distended, guarding, mass, organolmegaly, rebound, tenderness Rectal exam: PRESENT: deferred Extremities exam: PRESENT: joint swelling - right knee joint, pedal edema - minimally around right knee joint Musculoskeletal exam: PRESENT: ambulatory Neurological exam: PRESENT: alert, awake, oriented to person, oriented to place , oriented to time, oriented to situation, CN II-XII grossly intact. ABSENT: motor sensory deficit Psychiatric exam: PRESENT: appropriate affect, normal mood. ABSENT: homicidal ideation, suicidal ideation Skin exam: PRESENT: dry, intact, warm, other - healing right knee joint site of knee joint replacement. ABSENT: cyanosis, rash Results Laboratory Results: I reviewed her laboratory results on [employer] and form significant part of my medical decision making. Impressions: Chest X-Ray 02/09/18 15:17 IMPRESSION: NO ACUTE RADIOGRAPHIC FINDING IN THE CHEST. Assessment & Plan - Diagnosis (1) Altered mental status Qualifiers: Altered mental status type: unspecified Qualified Code(s): R41.82 - Altered mental status, unspecified Plan: This is getting better since her arrival in the ED but she continue to demonstrate episodes of intermittent memory impairment. See admitting attending physician orders. (2) Postoperative pain of right knee Is this a current diagnosis for this admission?: Yes Plan: See admitting attending physician orders. (3) HTN (hypertension) Qualifiers: Hypertension type: essential hypertension Qualified Code(s): I10 - Essential (primary) hypertension Is this a current diagnosis for this admission?: Yes Plan: See admitting attending physician orders. (4) Generalized weakness Is this a current diagnosis for this admission?: Yes Plan: See admitting attending physician orders. - Time Time Spent: 50 to 70 Minutes Medications reviewed and adjusted accordingly: Yes Anticipated discharge: SNF - for short term rehabilitation. - Inpatient Certification Based on my medical assessment, after consideration of the patient's comorbidities, presenting symptoms, or acuity I expect that the services needed warrant INPATIENT care.: Yes I certify that my determination is in accordance with my understanding of Medicare's requirements for reasonable and necessary INPATIENT services [42 CFR 412.3e].: Yes Medical Necessity: Need Close Monitoring Due to Risk of Patient Decompensation, Need For IV Fluids, Risk of Complication if Not Cared For in Hospital Post Hospital Care: D/C or Transfer Summary - Plan Summary Plan Summary: See admitting attending physician orders.
[2018-02-09 19:20] LABS: ABSOLUTE EOSINOPHILS # (AUTO) 0.1 10^3/uL (0.0-0.6); ABSOLUTE LYMPHOCYTES (AUTO) 0.7 10^3/uL (0.5-4.7); ABSOLUTE MONOCYTES (AUTO) 0.3 10^3/uL (0.1-1.4); ABSOLUTE NEUT (AUTO) 2.2 10^3/uL (1.7-8.2); BASOPHILS % (AUTO) 0.9 % (0-2); EOSINOPHILS % (AUTO) 4.3 % (0-6); HEMATOCRIT 38.5 % (36.0-47.0); LYMPHOCYTES % (AUTO) 20.3 % (13-45); MEAN CORPUSCULAR HEMOGLOBIN 32.6 pg (27.0-33.4); MEAN CORPUSCULAR HGB CONC 33.9 g/dL (32.0-36.0); MEAN CORPUSCULAR VOLUME 96 fl (80-97); MONOCYTES % (AUTO) 8.6 % (3-13); PLATELET COUNT 204 10^3/uL (150-450); RED BLOOD COUNT 3.99 10^6/uL (3.72-5.28); RED CELL DISTRIBUTION WIDTH 13.9 % (11.5-14.0); SEGMENTED NEUTROPHILS % (AUTO) 65.9 % (42-78); TOTAL CELLS COUNTED % (AUTO) 100 %; WHITE BLOOD COUNT 3.4 10^3/uL (4.0-10.5)
[2018-02-09 19:35] LABS: ALANINE AMINOTRANSFERASE 23 U/L (9-52); ALBUMIN 4.3 g/dL (3.5-5.0); ALKALINE PHOSPHATASE 66 U/L (38-126); ANION GAP 11 (5-19); ASPARTATE AMINO TRANSFERASE 29 U/L (14-36); BILIRUBIN,DIRECT 0.2 mg/dL (0.0-0.4); BILIRUBIN,TOTAL 0.6 mg/dL (0.2-1.3); BLOOD UREA NITROGEN 18 mg/dL (7-20); CALCIUM 9.9 mg/dL (8.4-10.2); CARBON DIOXIDE 26 mmol/L (22-30); CHLORIDE 105 mmol/L (98-107); GLUCOSE 97 mg/dL (75-110); POTASSIUM 4.2 mmol/L (3.6-5.0); SODIUM 141.8 mmol/L (137-145)
[2018-02-09] MEDS: HYDROCODONE/ACETAMINOPHEN 5-325 MG TABLET PO PRN (21:47)
--- NOTE | 2018-02-09 22:28 | EKG REPORT ---
SEVERITY:- ABNORMAL ECG - SINUS RHYTHM LEFT VENTRICULAR HYPERTROPHY INFERIOR INFARCT, AGE INDETERMINATE : Confirmed by: Keiry Hernandez MD 09-Feb-2018 22:27:34
[2018-02-10] MEDS ORDERED: LANSOPRAZOLE 30 MG TAB.RAP.DR PO SCH (06:00)
[2018-02-10] MEDS: HYDROCODONE/ACETAMINOPHEN 5-325 MG TABLET PO PRN ×2 (09:11→16:05)
[2018-02-10] MEDS ORDERED: MULTIVITAMIN TABLET PO SCH (10:00)
[2018-02-10] MEDS ORDERED: LOSARTAN POTASSIUM 50 MG TABLET PO SCH (10:00)
[2018-02-10] MEDS ORDERED: HYDROCHLOROTHIAZIDE 12.5 MG TABLET PO SCH (10:00)
[2018-02-10] MEDS ORDERED: ENOXAPARIN SODIUM INJ 40 MG/0.4 ML DISP.SYRIN SUBCUT SCH (10:00)
[2018-02-10] MEDS ORDERED: (PENDING PHARMACY ID) (Losartan/Hydrochlorothiazide [Hyzaar 100-12.5 Tablet] 1 TAB) PO SCH (10:00)
[2018-02-10] MEDS ORDERED: ASPIRIN/DIPYRIDAMOLE 25-200 MG 1 CAP.SR CPMP.12HR PO SCH (10:00)
[2018-02-10] MEDS ORDERED: METOPROLOL SUCCINATE 50 MG TAB.SR.24H PO SCH (10:00)
[2018-02-10 17:15] VITALS: BP 153/82
--- NOTE | 2018-02-10 17:25 | PDOC DISCHARGE SUMMARY ---
General - Admit/Disc Date/PCP Admission Date/Primary Care Provider: 02/09/18 15:31 CHRSITIANO EUGENIO Discharge Date: 02/10/18 - Discharge Diagnosis (1) Altered mental status Is this a current diagnosis for this admission?: Yes Summary: Resolved. (2) Postoperative pain of right knee Is this a current diagnosis for this admission?: Yes Summary: She will be discharged home with lower dose of [place] 5/325 mg 1 tablet po q6 hours prn for pain management # 60 tablets. (3) HTN (hypertension) Is this a current diagnosis for this admission?: Yes Summary: Controlled on current medication management. (4) Generalized weakness Is this a current diagnosis for this admission?: Yes Summary: She will continue home physical therapy program through [facility] services. - Additional Information Resuscitation Status: Full Code Discharge Diet: Cardiac Discharge Activity: Activity As Tolerated, Slowly Increase Activity Prescriptions: Hydrocodone/Acetaminophen [[place] 5-325 mg Tablet] 1 tab PO Q6HP PRN #60 tablet PRN Reason: Home Medications: Aspirin/Dipyridamole [Aggrenox 25 mg-200 mg Capsule] 1 cap PO BID 02/09/18 Losartan/Hydrochlorothiazide [Hyzaar 100-12.5 Tablet] 1 tab PO DAILY 02/09/18 Melatonin [Melatonin 3 mg Tablet] 3 mg PO QHS 02/09/18 Metoprolol Succinate [Toprol Xl 50 mg Tab.sr] 50 mg PO DAILY 02/09/18 Multivit-Min/Iron/Folic/Lutein [Centrum Silver Women Tablet] 1 tab PO DAILY 03/19 Rizatriptan Benzoate [Maxalt] 10 mg PO DAILYP PRN 02/09/18 Hydrocodone/Acetaminophen [[place] 5-325 mg Tablet] 1 tab PO Q6HP PRN #60 tablet 02/10/18 History of Present Illness Patient complains of: Altered mental status History of Present Illness: KELLEY BAEZA is a 82 year old female known to my practice who presented to the ED with compliant of altered mental state, generalized weakness and right knee pain. Patient friends brought her to the ED with reported that she was not her usual self. Patient was recently discharged home following right total knee arthroplasty surgery. There was concern about over medication with her pain management. Her friend reported missing about 4 days of her pre ported medication. Patient was initially difficult to arouse in the ED. She eventually came around and denied taking any medication since last night. She reported going grocery shopping and upon getting home when to bed and woke up dia find herself in this condition. she is very lucid about her right knee replacement surgery by Dr Rhoades at [facility] in [place] but less specific about the date of her surgery. he denied any fever or chills. No nausea , vomiting, abdominal pain, urinary frequency, diarrhea or constipation. In vie of her clinical evaluation findings and concern for medication overdose she was advices regarding hospitalization. Her laboratory and radiologic evaluation were negative for any significant pathology. Her morbidities include Hypertension, chronic gastritis / Ulcer, Arthritis, and Depression. Hospital Course Hospital Course: Patient responded to holding her opioid pain medication as well as benzodiazepine and Duloxetine therapy. She is lucid and verbally interactive. Patient requested discharge home today. She has home health agency service for home physical therapy and nursing service. She will be discharge home today and follow up in the office as instructed upon discharge. Physical Exam Vital Signs: Temp Pulse Resp BP Pulse Ox 98.6 F 90 18 122/58 L 98 02/10/18 11:39 02/10/18 14:00 02/10/18 11:39 02/10/18 11:39 02/10/18 11:39 Intake & Output 02/09/18 02/10/18 02/11/18 06:59 06:59 06:59 Intake Total 120 Balance 120 Weight 67.5 kg General appearance: PRESENT: no acute distress, well-developed, well-nourished Head exam: PRESENT: atraumatic, normocephalic Eye exam: PRESENT: conjunctiva pink, EOMI, PERRLA. ABSENT: scleral icterus Ear exam: PRESENT: normal external ear exam Mouth exam: PRESENT: moist Respiratory exam: PRESENT: clear to auscultation gretta Cardiovascular exam: PRESENT: RRR. ABSENT: diastolic murmur, rubs, systolic murmur Pulses: PRESENT: +2 pedal pulses bilateral Vascular exam: PRESENT: normal capillary refill. ABSENT: pallor GI/Abdominal exam: PRESENT: normal bowel sounds, soft. ABSENT: distended, guarding, mass, organolmegaly, rebound, tenderness Extremities exam: PRESENT: other - right knee arthroplasty surgical site healing satisfactorily.. ABSENT: pedal edema Musculoskeletal exam: PRESENT: ambulatory Neurological exam: PRESENT: alert, awake, oriented to person, oriented to place , oriented to time, oriented to situation, CN II-XII grossly intact. ABSENT: motor sensory deficit Psychiatric exam: PRESENT: appropriate affect, normal mood. ABSENT: homicidal ideation, suicidal ideation Skin exam: PRESENT: dry, warm Results Laboratory Results: 02/09/18 19:10 02/09/18 19:10 02/09/18 02/09/18 19:10 19:10 WBC 3.4 L RBC 3.99 Hgb 13.0 Hct 38.5 MCV 96 MCH 32.6 MCHC 33.9 RDW 13.9 Plt Count 204 Seg Neutrophils % 65.9 Lymphocytes % 20.3 Monocytes % 8.6 Eosinophils % 4.3 Basophils % 0.9 Absolute Neutrophils 2.2 Absolute Lymphocytes 0.7 Absolute Monocytes 0.3 Absolute Eosinophils 0.1 Absolute Basophils 0.0 Sodium 141.8 Potassium 4.2 Chloride 105 Carbon Dioxide 26 Anion Gap 11 BUN 18 Creatinine 0.92 Est GFR ( Amer) > 60 Est GFR (Non-Af Amer) 58 L Glucose 97 Calcium 9.9 Total Bilirubin 0.6 AST 29 ALT 23 Alkaline Phosphatase 66 Total Protein 8.0 Albumin 4.3 Impressions: Chest X-Ray 02/09/18 15:17 IMPRESSION: NO ACUTE RADIOGRAPHIC FINDING IN THE CHEST. Qualifiers - * PATIENT BEING DISCHARGED WITH ANY OF THE FOLLOWING DIAGNOSIS: No Plan Discharge Plan: D/C home today. Follow up in the office as instructed upon discharge.
[2018-02-11] MEDS ORDERED: LANSOPRAZOLE 30 MG TAB.RAP.DR PO SCH (06:00)
== END 2018-02-10 17:47 | disposition home health service (06) | DRG 918 ==
LOC: ER 10:57 → EH 15:31 → 3S 18:06
PROVIDERS: ADMIT Internal Medicine Geriatric Medicine; ATTEND Internal Medicine Geriatric Medicine
DX: T40.2X1A Poisoning by other opioids, accidental (unintentional), initial encounter (principal); R41.82 Altered mental status, unspecified; G89.18 Other acute postprocedural pain; I10 Essential (primary) hypertension; M19.90 Unspecified osteoarthritis, unspecified site; F32.9 Major depressive disorder, single episode, unspecified; Z96.651 Presence of right artificial knee joint; Z60.2 Problems related to living alone; Y92.098 Other place in other non-institutional residence as the place of occurrence of the external cause
CPT/HCPCS: 36415; 51701; 71045; 80053; 80307; 81001; 82550; 82553; 84484; 85025; 93005; 93010; 99285; J1650

== ENCOUNTER 2018-02-21 12:54 | Emergency (ER) | payer MEDICARE, OTHER ==
[2018-02-21] MEDS ORDERED: NORMAL SALINE 1000 ML 1,000 ML IV ONE (13:30)
--- NOTE | 2018-02-21 13:31 | ER Document Report ---
ED General - General Chief Complaint: Nausea/Vomiting Stated Complaint: WEAKNESS Time Seen by Provider: 02/21/18 13:28 Mode of Arrival: Medic Information source: Patient, Relative Notes: This is an 82-year-old woman with a history of hypertension, migraines, vertigo , status post right knee surgery 2 months ago who presents to the emergency room with weakness, nausea and vomiting. Patient denies fever. TRAVEL OUTSIDE OF THE [place] IN LAST 30 DAYS: No - HPI Onset: Just prior to arrival Onset/Duration: Gradual Quality of pain: No pain Severity: None Pain Level: Denies Associated symptoms: Nausea, Vomiting, Weakness. denies: Chest pain, Headache, Shortness of breath Exacerbated by: Denies Relieved by: Denies Similar symptoms previously: Yes Recently seen / treated by doctor: No - Related Data Allergies/Adverse Reactions: Sulfa (Sulfonamide Antibiotics) Allergy (Verified 03/11/15 09:19) SWELLING AND ITCHING oxycodone [From Percocet] Adverse Reaction (Verified 02/10/18 00:19) Pruritis Past Medical History - General Information source: Patient - Social History Smoking Status: Unknown if Ever Smoked Cigarette use (# per day): No Chew tobacco use (# tins/day): No Frequency of alcohol use: None Drug Abuse: None Lives with: Family Family History: Reviewed & Not Pertinent Patient has suicidal ideation: No Patient has homicidal ideation: No - Past Medical History Cardiac Medical History: Reports: Hx Hypertension Denies: Hx Coronary Artery Disease, Hx Heart Attack Pulmonary Medical History: Reports: Hx Asthma - CHILD Denies: Hx Bronchitis, Hx COPD, Hx Pneumonia Neurological Medical History: Denies: Hx Cerebrovascular Accident, Hx Seizures Endocrine Medical History: Denies: Hx Diabetes Mellitus Type 1, Hx Diabetes Mellitus Type 2 Renal/ Medical History: Denies: Hx Peritoneal Dialysis GI Medical History: Reports: Hx Ulcer. Denies: Hx Hepatitis, Hx Hiatal Hernia Musculoskeletal Medical History: Reports Hx Arthritis Psychiatric Medical History: Reports: Hx Depression Infectious Medical History: Denies: Hx Hepatitis Past Surgical History: Reports: Hx Hysterectomy. Denies: Hx Mastectomy, Hx Open Heart Surgery, Hx Pacemaker - Immunizations Hx Diphtheria, Pertussis, Tetanus Vaccination: No Hx Pneumococcal Vaccination: 12/31/14 Review of Systems - Review of Systems Constitutional: denies: Chills, Fever EENT: No symptoms reported Cardiovascular: No symptoms reported Respiratory: No symptoms reported Gastrointestinal: No symptoms reported Genitourinary: No symptoms reported Female Genitourinary: No symptoms reported Musculoskeletal: See HPI Skin: No symptoms reported Hematologic/Lymphatic: No symptoms reported Neurological/Psychological: Weakness. denies: Anxiety, Gait changes, Loss of power, Speech impairment Physical Exam - Vital signs Vitals: Temp Pulse Resp BP 99.8 F 94 14 131/69 H 02/21/18 13:18 02/21/18 13:18 02/21/18 13:18 02/21/18 13:18 Notes: Physical exam: GENERAL: Weak, dehydrated appearing woman, no acute distress HEAD: Atraumatic, normocephalic. EYES: Pupils equal round and reactive to light, extraocular movements intact, sclera anicteric, conjunctiva are normal. ENT: TMs normal, nares patent, oropharynx clear without exudates. Moist mucous membranes. NECK: Normal range of motion, supple without obvious mass or JVD. LUNGS: Breath sounds clear to auscultation bilaterally and equal. No wheezes rales or rhonchi. HEART: Regular rate and rhythm without murmurs, rubs or gallops. ABDOMEN: Soft, normoactive bowel sounds. No tenderness to palpation. No guarding, no rebound. No masses appreciated. EXTREMITIES: Normal range of motion, no pitting or edema. No clubbing or cyanosis. Patient is status post right total knee replacement. There is no erythema. There is mild swelling which is what you would expect at this point after surgery. There is no calf swelling or tenderness. Distal pulses are good. NEUROLOGICAL: Cranial nerves II through XII grossly intact. Normal speech, moving all extremities. PSYCH: Normal mood, normal affect. SKIN: Warm, Dry, normal turgor, no rashes or lesions noted. Course - Re-evaluation Re-evalutation: 02/21/18 19:20 On reassessment: Patient looks much better. She states she feels much better. I have discussed the results of the labs with her and help with her primary care doctor. - Vital Signs Vital signs: Temp Pulse Resp BP Pulse Ox 98.9 F 87 14 122/61 97 02/21/18 17:13 02/21/18 17:13 02/21/18 13:18 02/21/18 17:13 10/23/18 17:13 - Laboratory Result Diagrams: 02/21/18 12:42 02/21/18 12:42 Laboratory results interpreted by me: 02/21/18 02/21/18 02/21/18 12:42 12:42 14:16 Seg Neutrophils % 87.5 H Lymphocytes % 5.4 L Absolute Lymphocytes 0.4 L BUN 22 H Est GFR (Non-Af Amer) 55 L AST 87 H Urine Blood SMALL H Urine Ascorbic Acid 20 H - Diagnostic Test Radiology reviewed: Image reviewed, Reports reviewed - Chest x-ray shows no infiltrates or effusions. Discharge - Discharge Clinical Impression: Vomiting with nausea, Mild dehydration Condition: Stable Disposition: HOME, SELF-CARE Additional Instructions: As we discussed, your labs look good. They did show mild dehydration. You were given IV fluids. I want you to take some Zofran for nausea. You could discuss with Dr. Becker switching the pain medicine to gabapentin. I would not make that switch until discussing it with Dr. Becker because you are on a lot of medicines. Return to the emergency room for worsening nausea, vomiting Prescriptions: Ondansetron HCl [Zofran 4 mg Tablet] 1 - 2 tab PO Q4H PRN #10 tablet PRN Reason: Referrals: CHRISTIANO BECKER MD [Primary Care Provider] - 02/22/18 (Call tomorrow for an appointment)
[2018-02-21 13:36] LABS: ABSOLUTE EOSINOPHILS # (AUTO) 0.1 10^3/uL (0.0-0.6); ABSOLUTE LYMPHOCYTES (AUTO) 0.4 10^3/uL (0.5-4.7); ABSOLUTE MONOCYTES (AUTO) 0.4 10^3/uL (0.1-1.4); BASOPHILS % (AUTO) 0.4 % (0-2); EOSINOPHILS % (AUTO) 0.9 % (0-6); HEMATOCRIT 37.3 % (36.0-47.0); HEMOGLOBIN 12.4 g/dL (12.0-15.5); LYMPHOCYTES % (AUTO) 5.4 % (13-45); MEAN CORPUSCULAR HEMOGLOBIN 31.9 pg (27.0-33.4); MEAN CORPUSCULAR HGB CONC 33.2 g/dL (32.0-36.0); MEAN CORPUSCULAR VOLUME 96 fl (80-97); MONOCYTES % (AUTO) 5.8 % (3-13); PLATELET COUNT 199 10^3/uL (150-450); RED BLOOD COUNT 3.89 10^6/uL (3.72-5.28); RED CELL DISTRIBUTION WIDTH 13.3 % (11.5-14.0); SEGMENTED NEUTROPHILS % (AUTO) 87.5 % (42-78); TOTAL CELLS COUNTED % (AUTO) 100 %; WHITE BLOOD COUNT 6.8 10^3/uL (4.0-10.5)
[2018-02-21 13:47] LABS: ALANINE AMINOTRANSFERASE 24 U/L (9-52); ALBUMIN 4.4 g/dL (3.5-5.0); ALKALINE PHOSPHATASE 66 U/L (38-126); ANION GAP 12 (5-19); ASPARTATE AMINO TRANSFERASE 87 U/L (14-36); BILIRUBIN,DIRECT 0.3 mg/dL (0.0-0.4); BILIRUBIN,TOTAL 0.7 mg/dL (0.2-1.3); BLOOD UREA NITROGEN 22 mg/dL (7-20); CALCIUM 9.9 mg/dL (8.4-10.2); CARBON DIOXIDE 23 mmol/L (22-30); CHLORIDE 107 mmol/L (98-107); GLUCOSE 99 mg/dL (75-110); POTASSIUM 4.5 mmol/L (3.6-5.0); SODIUM 141.8 mmol/L (137-145); TOTAL PROTEIN 7.8 g/dL (6.3-8.2)
[2018-02-21 14:44] LABS: INTERNATIONAL RATION (INR) 0.96; PROTHROMBIN TIME 13.3 SEC (11.4-15.4)
[2018-02-21 14:53] LABS: APPEARANCE,URINE CLEAR; BILIRUBIN,URINE NEGATIVE (NEGATIVE); COLOR,URINE YELLOW; GLUCOSE, URINE NEGATIVE (NEGATIVE); KETONES,URINE NEGATIVE (NEGATIVE); LEUKOCYTE ESTERASE,URINE NEGATIVE (NEGATIVE); NITRITE,URINE NEGATIVE (NEGATIVE); PROTEIN,URINE NEGATIVE (NEGATIVE); URINE SPECIFIC GRAVITY 1.015; UROBILINOGEN,URINE NEGATIVE mg/dL (<2.0)
--- NOTE | 2018-02-21 15:49 | RADIOLOGY REPORT (SQ) ---
EXAM DESCRIPTION: CHEST SINGLE VIEW COMPLETED DATE/TIME: 02/21/2018 3:33 pm REASON FOR STUDY: weakness, vomiting COMPARISON: Chest films 02/09/2018, 01/31/2014 EXAM PARAMETERS: NUMBER OF VIEWS: One view. TECHNIQUE: Single frontal radiographic view of the chest acquired. RADIATION DOSE: NA LIMITATIONS: None. FINDINGS: LUNGS AND PLEURA: No opacities, masses or pneumothorax. No pleural effusion. MEDIASTINUM AND HILAR STRUCTURES: No masses. Contour normal. HEART AND VASCULAR STRUCTURES: Heart normal in size. Normal vasculature. BONES: No acute findings. HARDWARE: None in the chest. OTHER: No other significant finding. IMPRESSION: NO ACUTE RADIOGRAPHIC FINDING IN THE CHEST. TECHNICAL DOCUMENTATION: JOB ID: [id number] [employer] [place]- All Rights Reserved Reading location - IP/workstation name: [email or web address]
[2018-02-21 17:26] VITALS: BP 122/61
== END 2018-02-21 17:26 | disposition home or self-care (01) ==
LOC: ER 12:54
DX: R11.2 Nausea with vomiting, unspecified (principal); E86.0 Dehydration; R53.1 Weakness; I10 Essential (primary) hypertension; Z96.651 Presence of right artificial knee joint; Z88.2 Allergy status to sulfonamides
CPT/HCPCS: 99284; 96360; 51702; 36415; 87086; 85025; 85610; 87088; 80053; 81001; 87186; 71045; J7030

== ENCOUNTER → 2018-08-03 | Outpatient (CLI) | payer MEDICARE, OTHER ==
--- NOTE | 2018-08-03 12:49 | RADIOLOGY REPORT (SQ) ---
EXAM DESCRIPTION: HIP LEFT AP/LATERAL COMPLETED DATE/TIME: 08/03/2018 12:23 pm REASON FOR STUDY: PAIN IN LEFT HIP M25.552 PAIN IN LEFT HIP COMPARISON: Abdominal films 10/27/2016 NUMBER OF VIEWS: Two views. TECHNIQUE: AP pelvis and additional frog-leg view of the left hip. LIMITATIONS: None. FINDINGS: MINERALIZATION: Normal. LEFT HIP: No fracture or dislocation. No worrisome bone lesions. RIGHT HIP: No fracture or dislocation. No worrisome bone lesions. PUBIS AND ISCHIUM: No fracture. PELVIS: No fracture. SACRUM: No fracture or dislocation. No worrisome bone lesions. LOWER LUMBAR SPINE: There is advanced degenerative disc change at L2-3 at the upper edge of the field of view left greater than right. Left hip pain is likely radiculopathy. SOFT TISSUES: No findings. OTHER: No other significant finding. IMPRESSION: No acute fracture left hip or bony pelvis. TECHNICAL DOCUMENTATION: JOB ID: [id number] [employer]- All Rights Reserved Reading location - IP/workstation name: [email or web address]
== END ==
LOC: OD 12:09
PROVIDERS: ATTEND Student in an Organized Health Care Education/Training Program
DX: M25.552 Pain in left hip (principal)

== ENCOUNTER 2018-09-04 15:47 | Emergency (ER) | payer MEDICARE ==
--- NOTE | 2018-09-04 16:57 | ER Document Report ---
ED Medical Screen (RME) - General Chief Complaint: Leg Swelling Stated Complaint: LEG SWELLING Time Seen by Provider: 09/04/18 16:48 Primary Care Provider: LUIS VILLALPANDO MD [Primary Care Provider] - Follow up as needed Mode of Arrival: Ambulatory Information source: Patient Notes: 82-year-old female presented to ED for complaint of left lower extremity swelling and pain. She states is been swelling off and on for about 2 weeks but for the first of this week her foot became much larger and then as the week has progressed it is gone up to the lower leg. She states she is also been short of breath. Her primary care center to the emergency room to be evaluated for DVT or PE. Patient does have a history of high blood pressure and a blood clot to the lower extremity. She states she is been on blood thinners for years. She denies smoking drinking or doing any drugs. She states she lives alone. Patient is alert oriented respirations regular and unlabored at this time. She does have mild edema to the left lower extremity. I have greeted and performed a rapid initial assessment of this patient. A comprehensive ED assessment and evaluation of the patient, analysis of test results and completion of medical decision making process will be conducted by an additional ED providers. TRAVEL OUTSIDE OF THE [place] IN LAST 30 DAYS: No - Related Data Allergies/Adverse Reactions: Sulfa (Sulfonamide Antibiotics) Allergy (Verified 09/04/18 15:50) SWELLING AND ITCHING oxycodone [From Percocet] Adverse Reaction (Verified 09/04/18 15:50) Pruritis Past Medical History - Social History Frequency of alcohol use: None Drug Abuse: None - Past Medical History Cardiac Medical History: Reports: Hx Hypertension Denies: Hx Coronary Artery Disease, Hx Heart Attack Pulmonary Medical History: Reports: Hx Asthma - CHILD Denies: Hx Bronchitis, Hx COPD, Hx Pneumonia Neurological Medical History: Denies: Hx Cerebrovascular Accident, Hx Seizures Endocrine Medical History: Denies: Hx Diabetes Mellitus Type 1, Hx Diabetes Mellitus Type 2 Renal/ Medical History: Denies: Hx Peritoneal Dialysis GI Medical History: Reports: Hx Ulcer. Denies: Hx Hepatitis, Hx Hiatal Hernia Musculoskeltal Medical History: Reports Hx Arthritis Psychiatric Medical History: Reports: Hx Depression Infectious Medical History: Denies: Hx Hepatitis Past Surgical History: Reports: Hx Abdominal Surgery - ulcer, Hx Hysterectomy. Denies: Hx Mastectomy, Hx Open Heart Surgery, Hx Pacemaker - Immunizations Hx Diphtheria, Pertussis, Tetanus Vaccination: No Physical Exam - Vital signs Vitals: Temp Pulse Resp BP Pulse Ox 98.5 F 64 16 149/80 H 96 09/04/18 15:52 09/04/18 15:52 09/04/18 15:52 09/04/18 15:52 09/04/18 15:52 Course - Vital Signs Vital signs: Temp Pulse Resp BP Pulse Ox 98.5 F 64 16 149/80 H 96 09/04/18 15:52 09/04/18 15:52 09/04/18 15:52 09/04/18 15:52 09/04/18 15:52 Doctor's Discharge - Discharge Referrals: LUIS VILLALPANDO MD [Primary Care Provider] - Follow up as needed
[2018-09-04 17:24] LABS: ABSOLUTE EOSINOPHILS # (AUTO) 0.1 10^3/uL (0.0-0.6); ABSOLUTE LYMPHOCYTES (AUTO) 0.3 10^3/uL (0.5-4.7); ABSOLUTE MONOCYTES (AUTO) 0.2 10^3/uL (0.1-1.4); ABSOLUTE NEUT (AUTO) 2.1 10^3/uL (1.7-8.2); BASOPHILS % (AUTO) 0.9 % (0-2); EOSINOPHILS % (AUTO) 4.6 % (0-6); HEMATOCRIT 36.4 % (36.0-47.0); HEMOGLOBIN 12.2 g/dL (12.0-15.5); LYMPHOCYTES % (AUTO) 12.1 % (13-45); MEAN CORPUSCULAR HEMOGLOBIN 32.5 pg (27.0-33.4); MEAN CORPUSCULAR HGB CONC 33.5 g/dL (32.0-36.0); MEAN CORPUSCULAR VOLUME 97 fl (80-97); MONOCYTES % (AUTO) 7.7 % (3-13); PLATELET COUNT 203 10^3/uL (150-450); RED BLOOD COUNT 3.75 10^6/uL (3.72-5.28); RED CELL DISTRIBUTION WIDTH 13.2 % (11.5-14.0); SEGMENTED NEUTROPHILS % (AUTO) 74.7 % (42-78); TOTAL CELLS COUNTED % (AUTO) 100 %; WHITE BLOOD COUNT 2.8 10^3/uL (4.0-10.5)
[2018-09-04 17:36] LABS: INTERNATIONAL RATION (INR) 0.93; PROTHROMBIN TIME 12.9 SEC (11.4-15.4)
[2018-09-04 17:37] LABS: PARTIAL THROMBOPLASTIN TIME 29.2 SEC (23.5-35.8)
[2018-09-04 17:38] LABS: ALANINE AMINOTRANSFERASE 32 U/L (9-52); ALBUMIN 3.7 g/dL (3.5-5.0); ALKALINE PHOSPHATASE 69 U/L (38-126); ANION GAP 7 (5-19); ASPARTATE AMINO TRANSFERASE 34 U/L (14-36); BILIRUBIN,DIRECT 0.3 mg/dL (0.0-0.4); BILIRUBIN,TOTAL 0.3 mg/dL (0.2-1.3); BLOOD UREA NITROGEN 20 mg/dL (7-20); CARBON DIOXIDE 26 mmol/L (22-30); CHLORIDE 109 mmol/L (98-107); GLUCOSE 120 mg/dL (75-110); POTASSIUM 4.5 mmol/L (3.6-5.0); SODIUM 142.2 mmol/L (137-145); TOTAL PROTEIN 7.1 g/dL (6.3-8.2)
--- NOTE | 2018-09-04 18:56 | RADIOLOGY REPORT (SQ) ---
EXAM DESCRIPTION: CTA CHEST COMPLETED DATE/TIME: 09/04/2018 6:45 pm REASON FOR STUDY: Short of breath/history of DVTs/swelling to left l COMPARISON: None. TECHNIQUE: CT scan of the chest performed using helical scanning technique with dynamic intravenous contrast injection. Images reviewed with lung, soft tissue and bone windows. Reconstructed coronal and sagittal MPR images reviewed. Additional 3 dimensional post-processing performed to develop Maximal Intensity Projection images (WA P). All images stored on PACS. All CT scanners at this facility use dose modulation, iterative reconstruction, and/or weight based d osing when appropriate to reduce radiation dose to as low as reasonably achievable (ALARA). [facility]: Dose Right [facility]: CareDose [facility]: Dose Right [facility]: Teradose 4D [facility]: Smart Hair Scynce CONTRAST TYPE AND DOSE: contrast/concentration: Isovue 350.00 mg/ml; Total Contrast Delivered: 67.0 ml; Total Saline Delivered: 108.0 ml Contrast bolus optimized for the pulmonary arteries. Not diagnostic for the aorta. RENAL FUNCTION: BUN 20 creatinine 1.14 RADIATION DOSE: CT Rad equipment meets quality standard of care and radiation dose reduction techniq ues were employed. CTDIvol: 18.8 - 19.8 mGy. DLP: 660 mGy-cm. . LIMITATIONS: None. FINDINGS: LUNGS AND PLEURA: No masses, infiltrates, or pneumothorax. No pleural effusions or pleura l calcifications. AORTA AND GREAT VESSELS: No aneurysm. Contrast bolus not optimized for the aorta. HEART: No pericardial effusion. No significant coronary artery calcifications. PULMONARY ARTERIES: No emboli visualized in the main pulmonary arteries or the segmental branches. HILAR AND MEDIASTINAL STRUCTURES: No identified masses or abnormal nodes. HARDWARE: None in the chest. UPPER ABDOMEN: Bilateral parapelvic cysts. Intrarenal calculi. THYROID AND OTHER SOFT TISSUES: No masses. No adenopathy. BONES: No acute or significant finding. 3D MIPS: Confirm above findings. OTHER: No other significant finding. IMPRESSION: There is no evidence of pulmonary emboli. Renal findings as described. COMMENT: Quality ID # [id number]: Final reports with documentation of one or more dose reduction techniques (e.g., Automated exposure control, adjustment of the mA and/or kV according to patient size, use of iterative reconstruction technique) TECHNICAL DOCUMENTATION: JOB ID: [id number] [email or web address]- All Rights Reserved Reading location - IP/workstation name: [email or web address]
--- NOTE | 2018-09-04 19:18 | ER Document Report ---
ED General - General Chief Complaint: Leg Swelling Stated Complaint: LEG SWELLING Time Seen by Provider: 09/04/18 16:48 Primary Care Provider: LUIS VILLALPANDO MD [ACTIVE STAFF] - Follow up as needed Mode of Arrival: Ambulatory Information source: Patient, [facility] Records Notes: 82-year-old female presented to ED for complaint of left lower extremity swelling and pain. She states is been swelling off and on for about 2 weeks but for the first of this week her foot became much larger and then as the week has progressed it is gone up to the lower leg. She states she is also been short of breath. Her primary care center to the emergency room to be evaluated for DVT or PE. Patient does have a history of high blood pressure and a blood clot to the lower extremity. She states she is been on blood thinners for years. She denies smoking drinking or doing any drugs. She states she lives alone. Patient is alert oriented respirations regular and unlabored at this time. She does have mild edema to the left lower extremity. TRAVEL OUTSIDE OF THE [place] IN LAST 30 DAYS: No - HPI Onset: Other Onset/Duration: Gradual, Intermittent Quality of pain: No pain Severity: None Pain Level: Denies Associated symptoms: None Exacerbated by: Denies Relieved by: Denies Similar symptoms previously: Yes Recently seen / treated by doctor: Yes - Related Data Allergies/Adverse Reactions: Sulfa (Sulfonamide Antibiotics) Allergy (Verified 09/04/18 15:50) SWELLING AND ITCHING oxycodone [From Percocet] Adverse Reaction (Verified 09/04/18 15:50) Pruritis Past Medical History - General Information source: Patient - Social History Smoking Status: Never Smoker Frequency of alcohol use: None Drug Abuse: None Lives with: Family Family History: Reviewed & Not Pertinent Patient has suicidal ideation: No Patient has homicidal ideation: No - Past Medical History Cardiac Medical History: Reports: Hx Hypertension Denies: Hx Coronary Artery Disease, Hx Heart Attack Pulmonary Medical History: Reports: Hx Asthma - CHILD Denies: Hx Bronchitis, Hx COPD, Hx Pneumonia Neurological Medical History: Denies: Hx Cerebrovascular Accident, Hx Seizures Endocrine Medical History: Denies: Hx Diabetes Mellitus Type 1, Hx Diabetes Mellitus Type 2 Renal/ Medical History: Denies: Hx Peritoneal Dialysis GI Medical History: Reports: Hx Ulcer. Denies: Hx Hepatitis, Hx Hiatal Hernia Musculoskeletal Medical History: Reports Hx Arthritis Psychiatric Medical History: Reports: Hx Depression Infectious Medical History: Denies: Hx Hepatitis Past Surgical History: Reports: Hx Abdominal Surgery - ulcer, Hx Hysterectomy. Denies: Hx Mastectomy, Hx Open Heart Surgery, Hx Pacemaker - Immunizations Hx Diphtheria, Pertussis, Tetanus Vaccination: No Hx Pneumococcal Vaccination: 12/31/14 Review of Systems - Review of Systems Notes: REVIEW OF SYSTEMS: CONSTITUTIONAL : Denies fever, chills, or sweats. Denies recent illness. Denies weight loss, recent hospitalizations. EENT: Denies visual changes, eye pain. Denies sore throat, oral lesions, difficulty swallowing. CARDIOVASCULAR: Denies chest pain. Denies palpitations. +lower extremity edema. RESPIRATORY: Denies cough. Denies shortness of breath, wheezing. GASTROINTESTINAL: Denies abdominal pain or distention. Denies nausea, vomiting, or diarrhea. Denies blood in vomitus, stools, or per rectum. Denies black, tarry stools. Denies constipation. GENITOURINARY: Denies difficulty urinating, painful urination, frequency, blood in urine, or vaginal discharge. MUSCULOSKELETAL: Denies back or neck pain or stiffness. Denies joint pain or swelling. SKIN: Denies rash, lesions or sores. HEMATOLOGIC : Denies easy bruising or bleeding. LYMPHATIC: Denies swollen glands. NEUROLOGICAL: Denies confusion or altered mental status. Denies loss of consciousness. Denies dizziness or lightheadedness. Denies headache. Denies weakness or paralysis. Denies problems difficulty with ambulation, slurred speech. Denies sensory loss, numbness, or tingling. Denies seizures. PSYCHIATRIC: Denies anxiety or stress. Denies depression, suicidal ideation, or homicidal ideation. Denies visual or auditory hallucinations. Physical Exam - Vital signs Vitals: Temp Pulse Resp BP Pulse Ox 98.5 F 64 16 149/80 H 96 09/04/18 15:52 09/04/18 15:52 09/04/18 15:52 09/04/18 15:52 09/04/18 15:52 - Notes Notes: PHYSICAL EXAMINATION: GENERAL: Well-appearing, well-nourished and in no acute distress. HEAD: Atraumatic, normocephalic. EYES: Pupils equal round and reactive to light, extraocular movements intact, conjunctiva are normal. ENT: Nares patent, oropharynx clear without exudates. Moist mucous membranes. NECK: Normal range of motion, supple without lymphadenopathy LUNGS: Breath sounds clear to auscultation bilaterally and equal. No wheezes rales or rhonchi. HEART: Regular rate and rhythm without murmurs ABDOMEN: Soft, nontender, nondistended abdomen. No guarding, no rebound. No masses appreciated. Female : deferred Musculoskeletal: Normal range of motion, bilateral symmetric edema nonpitting no cyanosis. NEUROLOGICAL: Cranial nerves grossly intact. Normal speech, normal gait. Normal sensory, motor exams PSYCH: Normal mood, normal affect. SKIN: Warm, Dry, normal turgor, no rashes or lesions noted. Course - Re-evaluation Re-evalutation: Laboratory 09/04/18 09/04/18 09/04/18 17:03 17:03 17:03 WBC 2.8 L RBC 3.75 Hgb 12.2 Hct 36.4 MCV 97 MCH 32.5 MCHC 33.5 RDW 13.2 Plt Count 203 Seg Neutrophils % 74.7 Lymphocytes % 12.1 L Monocytes % 7.7 Eosinophils % 4.6 Basophils % 0.9 Absolute Neutrophils 2.1 Absolute Lymphocytes 0.3 L Absolute Monocytes 0.2 Absolute Eosinophils 0.1 Absolute Basophils 0.0 PT 12.9 INR 0.93 APTT 29.2 Sodium 142.2 Potassium 4.5 Chloride 109 H Carbon Dioxide 26 Anion Gap 7 BUN 20 Creatinine 1.14 Est GFR ( Amer) 55 L Est GFR (Non-Af Amer) 46 L Glucose 120 H Calcium 10.0 Total Bilirubin 0.3 Direct Bilirubin 0.3 Neonat Total Bilirubin Not Reportable Neonat Direct Bilirubin Not Reportable Neonat Indirect Bili Not Reportable AST 34 ALT 32 Alkaline Phosphatase 69 NT-Pro-B Natriuret Pep Total Protein 7.1 Albumin 3.7 09/04/18 17:03 WBC RBC Hgb Hct MCV MCH MCHC RDW Plt Count Seg Neutrophils % Lymphocytes % Monocytes % Eosinophils % Basophils % Absolute Neutrophils Absolute Lymphocytes Absolute Monocytes Absolute Eosinophils Absolute Basophils PT INR APTT Sodium Potassium Chloride Carbon Dioxide Anion Gap BUN Creatinine Est GFR ( Amer) Est GFR (Non-Af Amer) Glucose Calcium Total Bilirubin Direct Bilirubin Neonat Total Bilirubin Neonat Direct Bilirubin Neonat Indirect Bili AST ALT Alkaline Phosphatase NT-Pro-B Natriuret Pep 901 H Total Protein Albumin Chest/Abdomen CTA 09/04/18 16:55 IMPRESSION: There is no evidence of pulmonary emboli. Renal findings as described. Temp Pulse Resp BP Pulse Ox 98.6 F 67 18 138/78 H 99 09/04/18 19:38 09/04/18 19:38 09/04/18 19:38 09/04/18 19:38 09/04/18 19:38 09/05/18 12:50 82-year-old female presents with bilateral lower extremity edema and reports left has been worse than right. Sent by her primary care physician to rule out DVT, PE as patient has had this in the past. Vital signs reviewed upon arrival exam is significant for symmetric bilateral lower extremity edema which is nonpitting. Patient has no complaints of shortness of breath. CTA was obtained and negative for PE. Pain is Doppler of the left lower extremity was negative for DVT. Patient was evaluated and treated as appropriate for the patient's presenting symptoms and complaint, with consideration of any critical or life threatening conditions that may be associated with their obtained history and exam as noted above. All results were discussed with patient and... Patient provided the opportunity to ask questions, and express concerns. Patient was educated on treatments based on their presumed diagnosis as noted above. At this time we will discharge the patient with return precautions and follow-up recommendations. Verbal discharge instructions given a the bedside. Medication warnings reviewed. Patient is in agreement with this plan and has verbalized understanding of return precautions. After careful consideration I feel that that patient can be safely discharged from the emergency department, they were advised to followup with a primary care physician in 2-3 days. Dictation on this chart was performed using voice recognition software and may result in unintended grammatical, spelling, syntax or errors. - Vital Signs Vital signs: Temp Pulse Resp BP Pulse Ox 98.6 F 67 18 138/78 H 99 09/04/18 19:38 09/04/18 19:38 09/04/18 19:38 09/04/18 19:38 09/04/18 19:38 - Laboratory Result Diagrams: 09/04/18 17:03 09/04/18 17:03 Laboratory results interpreted by me: 09/04/18 09/04/18 09/04/18 17:03 17:03 17:03 WBC 2.8 L Lymphocytes % 12.1 L Absolute Lymphocytes 0.3 L Chloride 109 H Est GFR ( Amer) 55 L Est GFR (Non-Af Amer) 46 L Glucose 120 H NT-Pro-B Natriuret Pep 901 H - Diagnostic Test Radiology reviewed: Image reviewed, Reports reviewed Discharge - Discharge Clinical Impression: Peripheral edema HTN (hypertension) Qualifiers: Hypertension type: unspecified Qualified Code(s): I10 - Essential (primary) hypertension Condition: Good Disposition: HOME, SELF-CARE Instructions: Edema, Peripheral ([facility]) Additional Instructions: Your ultrasound did not show any evidence of a clot in your leg. Your CAT scan of the chest did not show any evidence of a clot in your lung. Follow up with your [id number] hours for further care or return to the ED IMMEDIATELY if symptoms worsen or you have any concerns. If you cannot afford to follow up with your primary care physician a list of low cost clinics have been provided at the end of your discharge papers as well. Most prescribed medications have multiple side effects. The safest thing to do is when filling your prescription speak to your pharmacist regarding possible interactions with your normal home medications and over the counter medications such as Ibuprofen, Tylenol, Benadryl. If you experience any symptoms that cause you discomfort or concern you should discontinue the medication immediately and return to the emergency room or call your primary care physician. Forms: Elevated Blood Pressure Referrals: LUIS VILLALPANDO MD [ACTIVE STAFF] - Follow up as needed
[2018-09-04 19:40] VITALS: BP 138/78
--- NOTE | 2018-09-04 19:50 | XCELERA REPORT ---
[address] [place] [facility] [id number] Lower Extremity Venous Evaluation Procedure: Color flow and duplex imaging of the veins of the left lower extremity as well as the right Common Femoral vein. Right Sided Venous Evaluation The right common femoral vein is fully compressible. Spontaneous and phasic flow is present in the right common femoral vein. Left Sided Venous Evaluation Normal vessel filling wall to wall, compression and augmentation as well as Colour flow down to the infrageniculate veins. Interpretation Summary No duplex evidence of DVT or obstruction in the left lower extremity nor in the right Common Femoral vein. Name: KELLEY BAEZA Age: 82 yrs Gender: Female : 1935 Patient Status: Emergency Patient Location: ER Study Date: 09/04/2018 05:37 PM Reason For Study: Pain and swelling to the left leg Ordering Physician: ADAN BURGER Performed By: Mary Stafford : ADAN BURGER > Vinny Bullock
== END 2018-09-04 19:40 | disposition home or self-care (01) ==
LOC: ER 15:47
DX: R60.0 Localized edema (principal); M79.605 Pain in left leg; I10 Essential (primary) hypertension; N20.0 Calculus of kidney; Z79.01 Long term (current) use of anticoagulants; Z86.718 Personal history of other venous thrombosis and embolism; Z88.2 Allergy status to sulfonamides
CPT/HCPCS: 36415; 71275; 80053; 83880; 85025; 85610; 85730; 93971; 99284

== ENCOUNTER 2018-09-18 12:11 | Inpatient (IN) | payer MEDICARE, OTHER ==
--- NOTE | 2018-09-18 12:30 | ER Document Report ---
ED Fall - General Stated Complaint: FALL,BODY PAIN Primary Care Provider: CHRISTIANO BECKER MD [Primary Care Provider] - Follow up as needed Information source: Patient, Emergency Med Personnel Notes: 82-year-old female that presents with EMS from home with the initial report that the patient fell getting up from try to use the bathroom around 2 AM last evening and was found by family at 11 AM. EMS states that they noticed a left facial droop in route. However the patient states she has had some increased weakness to the right upper extremity since yesterday evening. Patient also states she had 2 bouts of diarrhea and 2 bouts of vomiting yesterday evening. She does not remember the exact time of onset of the increased weakness, but believes it was around 11 PM. Patient denies any headache, neck pain, chest pain, palpitations, abdominal pain, back pain, fevers, or dysuria. Patient states she normally walks with a cane secondary to some right sided lower extremity weakness. Patient states she has had some pain to the right arm after the fall but states the weakness in the right arm started before the fall. TRAVEL OUTSIDE OF THE [place] IN LAST 30 DAYS: No - Related data Allergies/Adverse Reactions: Sulfa (Sulfonamide Antibiotics) Allergy (Verified 09/04/18 15:50) SWELLING AND ITCHING oxycodone [From Percocet] Adverse Reaction (Verified 09/04/18 15:50) Pruritis Past Medical History - Social History Smoking Status: Unknown if Ever Smoked Family History: Reviewed & Not Pertinent - Past Medical History Cardiac Medical History: Reports: Hx Hypertension Denies: Hx Coronary Artery Disease, Hx Heart Attack Pulmonary Medical History: Reports: Hx Asthma - CHILD Denies: Hx Bronchitis, Hx COPD, Hx Pneumonia Neurological Medical History: Denies: Hx Cerebrovascular Accident, Hx Seizures Endocrine Medical History: Denies: Hx Diabetes Mellitus Type 1, Hx Diabetes Mellitus Type 2 Renal/ Medical History: Denies: Hx Peritoneal Dialysis GI Medical History: Reports: Hx Ulcer. Denies: Hx Hepatitis, Hx Hiatal Hernia Musculoskeletal Medical History: Reports Hx Arthritis Psychiatric Medical History: Reports: Hx Depression Infectious Medical History: Denies: Hx Hepatitis Past Surgical History: Reports: Hx Abdominal Surgery - ulcer, Hx Hysterectomy. Denies: Hx Mastectomy, Hx Open Heart Surgery, Hx Pacemaker - Immunizations Hx Diphtheria, Pertussis, Tetanus Vaccination: No Hx Pneumococcal Vaccination: 12/31/14 Review of Systems - Review of Systems Constitutional: denies: Fever EENT: denies: Eye discharge, Nose discharge Respiratory: denies: Short of breath Gastrointestinal: denies: Vomiting Genitourinary: denies: Dysuria Musculoskeletal: denies: Leg swelling Skin: Other - no hives. denies: Rash Neurological/Psychological: Other - no slurred speech -: Yes All other systems reviewed and negative Physical Exam - Vital signs Vitals: Pulse Resp BP Pulse Ox 74 18 115/81 99 09/18/18 12:45 09/18/18 12:45 09/18/18 12:45 09/18/18 12:45 Interpretation: Normal Notes: Reviewed vital signs and nursing note as charted by RN. CONSTITUTIONAL: Alert and oriented and responds appropriately to questions. Well-appearing; well-nourished HEAD: Normocephalic; atraumatic EYES: PERRL; full extraocular range of motion ENT: Normal nose; no rhinorrhea; midface stable; moist mucous membranes; pharynx without lesions noted NECK: Supple without meningismus; non-tender; no carotid bruit; no cervical lymphadenopathy, no masses CARD: Regular rate and rhythm; no murmurs; symmetric distal pulses RESP: Normal chest excursion without splinting or tachypnea; breath sounds clear and equal bilaterally; no anterior posterior rib tenderness; no wheezes, no rhonchi, no rales ABD/GI: Normal bowel sounds; non-distended; soft, non-tender; no abdominal bruits or palpable masses BACK: The back appears normal and is non-tender to palpation on the midline spine EXT: Patient has no tenderness to palpation of the right upper extremity from the shoulder to the fingers as well as the right lower extremity from the hip to the toes; no edema SKIN: No acute lesions noted NEURO: Patient has some minimal left facial drooping; CN 2-12 intact otherwise intact; 4 out of 5 right upper extremity strength. 5 out of 5 left upper extre mity strength. 3 out of 5 right lower extremity strength. 4 out of 5 left lower extremity strength. NIH score is 5 PSYCH: The patient's mood and manner are appropriate. Grooming and personal hygiene are appropriate. Course - Re-evaluation Re-evalutation: Given the above history and physical examination, patient was taken immediately to the CT scan machine. Given the recent fall a total CK as well as a cardiac panel, EKG, and urine analysis will be performed. Examination as recorded. Given the onset of symptomatology around 11 PM last evening, I do not believe that the patient is a TPA candidate at this time. 09/18/18 12:30 EKG shows a heart of 73, normal sinus rhythm, left axis deviation, poor R wave progression, no ST elevation or depression 09/18/18 14:24 Ct and xrays as recorded. Pt's labs show no gross abnormalities. Awaiting ua. 09/18/18 15:13 Urine just collected. No change in exam. Patient has had more bouts of diarrhea. I have ordered a C. difficile 09/18/18 15:51 Urine as recorded. No change in exam. Patient will be admitted to the primary care physician for further assessment and evaluation. - Vital Signs Vital signs: Temp Pulse Resp BP Pulse Ox 74 9 L 131/72 H 99 09/18/18 12:45 09/18/18 13:45 09/18/18 13:45 09/18/18 13:45 - Laboratory Result Diagrams: 09/18/18 12:41 09/18/18 12:41 Laboratory results interpreted by me: 09/18/18 09/18/18 09/18/18 09:53 12:41 12:41 MCV 98 H Seg Neuts % (Manual) 87 H Band Neutrophils % 1 L Lymphocytes % (Manual) 5 L Abs Lymphs (Manual) 0.2 L Chloride 108 H BUN 21 H Est GFR ( Amer) 59 L Est GFR (Non-Af Amer) 49 L Glucose 72 L POC Glucose 407 H* AST 46 H Creatine Kinase 232 H Urine Ketones Urine Blood Urine Ascorbic Acid 09/18/18 14:45 MCV Seg Neuts % (Manual) Band Neutrophils % Lymphocytes % (Manual) Abs Lymphs (Manual) Chloride BUN Est GFR ( Amer) Est GFR (Non-Af Amer) Glucose POC Glucose AST Creatine Kinase Urine Ketones TRACE H Urine Blood SMALL H Urine Ascorbic Acid 20 H Discharge - Discharge Clinical Impression: Right arm weakness, Nausea vomiting and diarrhea Accidental fall Qualifiers: Encounter type: initial encounter Qualified Code(s): W19.XXXA - Unspecified fall, initial encounter Condition: Fair Disposition: ADMITTED INPATIENT Admitting Provider: Braulio Unit Admitted: IMCU Referrals: CHRISTIANO BECKER MD [Primary Care Provider] - Follow up as needed
--- NOTE | 2018-09-18 12:36 | RADIOLOGY REPORT (SQ) ---
EXAM DESCRIPTION: CHEST SINGLE VIEW COMPLETED DATE/TIME: 09/18/2018 12:28 pm REASON FOR STUDY: facial droop COMPARISON: 02/21/2018 EXAM PARAMETERS: NUMBER OF VIEWS: One view. TECHNIQUE: Single frontal radiographic view of the chest acquired. RADIATION DOSE: NA LIMITATIONS: None. FINDINGS: LUNGS AND PLEURA: No opacities, masses or pneumothorax. No pleural effusion. MEDIASTINUM AND HILAR STRUCTURES: No masses. Contour normal. HEART AND VASCULAR STRUCTURES: Heart normal in size. Normal vasculature. BONES: No acute findings. HARDWARE: None in the chest. OTHER: No other significant finding. IMPRESSION: NO ACUTE RADIOGRAPHIC FINDING IN THE CHEST. TECHNICAL DOCUMENTATION: JOB ID: [id number] [employer]- All Rights Reserved Reading location - IP/workstation name: [email or web address]
--- NOTE | 2018-09-18 12:39 | RADIOLOGY REPORT (SQ) ---
EXAM DESCRIPTION: CT HEAD WITHOUT COMPLETED DATE/TIME: 09/18/2018 12:28 pm REASON FOR STUDY: facial droop COMPARISON: MRI 12/19/2015 TECHNIQUE: Axial images acquired through the brain without intravenous contrast. Images reviewed wi th bone, brain and subdural windows. Additional sagittal and coronal reconstructions were generated. Images stored on PACS. All CT scanners at this facility use dose modulation, iterative reconstruction, and/or weight based d osing when appropriate to reduce radiation dose to as low as reasonably achievable (ALARA). [facility]: Dose Right [facility]: CareDose [facility]: Dose Right [facility]: Teradose 4D [facility]: MostLikely RADIATION DOSE: mGy. LIMITATIONS: None. FINDINGS: VENTRICLES: Normal size and contour. CEREBRUM: Mild cortical atrophy. No masses. No hemorrhage. No midline shift. No evidence for acut e infarction. Normal peters/white matter differentiation. No areas of low density in the white matter. CEREBELLUM: No masses. No hemorrhage. No alteration of density. No evidence for acute infarction. EXTRAAXIAL SPACES: No fluid collections. No masses. ORBITS AND GLOBE: No intra- or extraconal masses. Normal contour of globe without masses. CALVARIUM: No fracture. PARANASAL SINUSES: No fluid or mucosal thickening. SOFT TISSUES: No mass or hematoma. OTHER: No other significant finding. IMPRESSION: Mild involutional changes with no acute intracranial imaging findings. EVIDENCE OF ACUTE STROKE: NO. COMMENT: Quality ID # [id number]: Final reports with documentation of one or more dose reduction techniques (e.g., Automated exposure control, adjustment of the mA and/or kV according to patient size, use of iterative reconstruction technique) TECHNICAL DOCUMENTATION: JOB ID: [id number] [employer]- All Rights Reserved Reading location - IP/workstation name: [email or web address]
[2018-09-18 12:56] LABS: INTERNATIONAL RATION (INR) 0.94
[2018-09-18 12:57] LABS: PARTIAL THROMBOPLASTIN TIME 28.9 SEC (23.5-35.8)
[2018-09-18 13:04] LABS: HEMATOCRIT 39.7 % (36.0-47.0); HEMOGLOBIN 13.3 g/dL (12.0-15.5); MEAN CORPUSCULAR HEMOGLOBIN 32.6 pg (27.0-33.4); MEAN CORPUSCULAR HGB CONC 33.4 g/dL (32.0-36.0); MEAN CORPUSCULAR VOLUME 98 fl (80-97); PLATELET COUNT 197 10^3/uL (150-450); RED BLOOD COUNT 4.07 10^6/uL (3.72-5.28); RED CELL DISTRIBUTION WIDTH 13.2 % (11.5-14.0); WHITE BLOOD COUNT 4.3 10^3/uL (4.0-10.5)
[2018-09-18 13:26] LABS: ALANINE AMINOTRANSFERASE 28 U/L (9-52); ALBUMIN 3.9 g/dL (3.5-5.0); ALKALINE PHOSPHATASE 92 U/L (38-126); ANION GAP 9 (5-19); ASPARTATE AMINO TRANSFERASE 46 U/L (14-36); BILIRUBIN,DIRECT 0.4 mg/dL (0.0-0.4); BILIRUBIN,TOTAL 0.4 mg/dL (0.2-1.3); BLOOD UREA NITROGEN 21 mg/dL (7-20); CALCIUM 9.4 mg/dL (8.4-10.2); CARBON DIOXIDE 26 mmol/L (22-30); CHLORIDE 108 mmol/L (98-107); CREATINE KINASE 232 U/L (30-135); GLUCOSE 72 mg/dL (75-110); POTASSIUM 3.7 mmol/L (3.6-5.0); SODIUM 142.8 mmol/L (137-145); TOTAL PROTEIN 7.2 g/dL (6.3-8.2)
[2018-09-18 13:32] LABS: CREATINE KINASE MB 1.41 ng/mL (<4.55); TROPONIN I < 0.012 ng/mL
[2018-09-18 13:53] LABS: ABSOLUTE LYMPHOCYTES# (MANUAL) 0.2 10^3/uL (0.5-4.7); ABSOLUTE MONOCYTES # (MANUAL) 0.3 10^3/uL (0.1-1.4); ABSOLUTE NEUTROPHILS# (MANUAL) 3.8 10^3/uL (1.7-8.2); BAND NEUTROPHILS % (MANUAL) 1 % (3-5); BASOPHILS % (MANUAL) 0 % (0-2); EOSINOPHILS % (MANUAL) 0 % (0-6); LYMPHOCYTES % (MANUAL) 5 % (13-45); MONOCYTES % (MANUAL) 7 % (3-13); OVALOCYTES SLIGHT; PLATELET COMMENT ADEQUATE; POIKILOCYTOSIS SLIGHT; SEGMENTED NEUTROPHILS % (MAN) 87 % (42-78); TOTAL CELLS COUNTED 100
--- NOTE | 2018-09-18 13:57 | RADIOLOGY REPORT (SQ) ---
EXAM DESCRIPTION: PELVIS AP COMPLETED DATE/TIME: 09/18/2018 1:43 pm REASON FOR STUDY: 12; fall COMPARISON: None. NUMBER OF VIEWS: One view TECHNIQUE: AP Pelvis LIMITATIONS: None. FINDINGS: MINERALIZATION: Normal. HIPS: No acute fracture or dislocation. No worrisome bone lesions. PELVIS AND SACRUM: No acute fracture or dislocation. No worrisome bone lesions. PUBIS AND ISCHIUM: No acute fracture. LOWER LUMBAR SPINE: No significant findings as visualized. SOFT TISSUES: No findings. OTHER: No other significant finding. IMPRESSION: NEGATIVE STUDY OF THE PELVIS. COMMENT: Pelvic fractures are often occult on plain radiographs. If strong clinical suspicion for f racture, recommend CT or MR. TECHNICAL DOCUMENTATION: JOB ID: [id number] [employer]- All Rights Reserved Reading location - IP/workstation name: [email or web address]
[2018-09-18] MEDS ORDERED: NORMAL SALINE 1000 ML 1,000 ML IV ONE (15:13)
[2018-09-18 15:21] LABS: APPEARANCE,URINE CLEAR; BILIRUBIN,URINE NEGATIVE (NEGATIVE); COLOR,URINE YELLOW; GLUCOSE, URINE NEGATIVE (NEGATIVE); KETONES,URINE TRACE mg/dL (NEGATIVE); LEUKOCYTE ESTERASE,URINE NEGATIVE (NEGATIVE); NITRITE,URINE NEGATIVE (NEGATIVE); PROTEIN,URINE NEGATIVE (NEGATIVE); URINE SPECIFIC GRAVITY 1.018; UROBILINOGEN,URINE NEGATIVE mg/dL (<2.0)
--- NOTE | 2018-09-18 19:42 | PDOC H&P ---
History of Present Illness Admission Date/PCP: 09/18/18 16:21 [facility] Patient complains of: Fall History of Present Illness: KELLEY BAEZA is a 82 year old female known to my practice who was brought to the ED by EMS after family found her on the floor at home earlier today. Patient reported that she fell about 9 pm last night in her attempt to transfer from her bedroom to her toilet. She was unable to get off the floor thereafter with noted increase weakness in her upper extremity. She has history of TIA with some degree of right lower extremity weakness but remain functional to care for herself. She was discovered on the floor about 11 am today after spending approximately fourteen hours on the floor. She reported two bouts diarrhea since her arrival in the hospital with associated nausea but no vomiting. She reported dizziness and intermittent palpitation in recent time. She denied any associated abdominal pain, headache, chest pain, neck pain, back pain, fevers, chills, flank pain, hematuria, or dysuria. She ambulate fairly with straight cane assistance but admitted to unsteady gait. Her initial evaluation in the ED was unrevealing and negative for acute stroke. She was advised hospitalization due to renal impairment and elevated total CK. Her morbidities include Hypertension, Hypothyroidism, Osteoarthritis, lumbar degenerative disc disease, chronic low back pain with unsteady gait, mixed Anxiety and Depression, and history of TIA. Past Medical History Cardiac Medical History: Reports: Hypertension Denies: Coronary Artery Disease, Myocardial Infarction Pulmonary Medical History: Reports: Asthma - CHILD Denies: Bronchitis, Chronic Obstructive Pulmonary Disease (COPD), Pneumonia Neurological Medical History: Denies: Seizures Endocrine Medical History: Denies: Diabetes Mellitus Type 1, Diabetes Mellitus Type 2 GI Medical History: Denies: Hepatitis, Hiatal Hernia Musculoskeltal Medical History: Reports: Arthritis Psychiatric Medical History: Reports: Depression Hematology: Denies: Anemia, Sickle Cell Disease Past Surgical History Past Surgical History: Reports: Hysterectomy Denies: Amputation, Mastectomy, Pacemaker Social History Smoking Status: Unknown if Ever Smoked Frequency of Alcohol Use: None Hx Recreational Drug Use: No Drugs: None Hx Prescription Drug Abuse: No - Advance Directive Resuscitation Status: Full Code Family History Family History: Reviewed & Not Pertinent Parental Family History Reviewed: Yes Children Family History Reviewed: Yes Sibling(s) Family History Reviewed.: Yes Medication/Allergy Home Medications: Aspirin/Dipyridamole [Aggrenox 25 mg/200 mg Capsule SA] 1 cap.sr PO Q12 09/18/18 Duloxetine HCl [Cymbalta] 60 mg PO DAILY 09/18/18 Hydrocodone/Acetaminophen [Ruth 5-325 mg Tablet] 1 tab PO DAILYP PRN 09/18/18 Lorazepam [Ativan 0.5 mg Tablet] 0.5 mg PO QHS 09/18/18 Losartan/Hydrochlorothiazide [Hyzaar 100-12.5 Tablet] 1 each PO DAILY 09/18/18 Meclizine HCl [Antivert 25 mg Tablet] 25 mg PO TID 09/18/18 Metoprolol Succinate [Toprol Xl 50 mg Tab.sr] 50 mg PO DAILY 09/18/18 Pregabalin [Lyrica 75 mg Capsule] 75 mg PO Q8 09/18/18 Rizatriptan Benzoate [Maxalt] 10 mg PO ASDIR PRN 09/18/18 Thyroid,Pork [Wilmot Thyroid] 15 mg PO DAILY 09/18/18 Topiramate [Topamax 25 mg Tablet] 25 mg PO Q12 09/18/18 Allergies/Adverse Reactions: Sulfa (Sulfonamide Antibiotics) Allergy (Verified 09/04/18 15:50) SWELLING AND ITCHING oxycodone [From Percocet] Adverse Reaction (Verified 09/04/18 15:50) Pruritis Review of Systems Constitutional: PRESENT: fatigue, weakness. ABSENT: as per HPI, anorexia, chills, fever(s), headache(s), night sweats, weight gain, weight loss, other Eyes: ABSENT: visual disturbances Ears: ABSENT: hearing changes Nose, Mouth, and Throat: ABSENT: as per HPI, headache(s), mouth pain, sore throat, vertigo, other Cardiovascular: ABSENT: chest pain, dyspnea on exertion, edema, orthropnea, palpitations Respiratory: ABSENT: cough, hemoptysis Gastrointestinal: PRESENT: nausea, vomiting. ABSENT: as per HPI, abdominal pain, bloating, coffee ground emesis, constipation, diarrhea, dysphagia, heartburn, hematemesis, hematochezia, melena, other Genitourinary: ABSENT: dysuria, hematuria Neurological: PRESENT: abnormal gait - ambulate with straight cane assistance, focal weakness - chronic right lower extremity prior TIA, reported right upepr extremity weakness before her recent fall incident at home., weakness - chronic right lower extremity prior TIA Psychiatric: ABSENT: anxiety, depression, homidical ideation, suicidal ideation Endocrine: ABSENT: cold intolerance, heat intolerance, polydipsia, polyuria Hematologic/Lymphatic: ABSENT: easy bleeding, easy bruising, lymphadenopathy Allergic/Immunologic: ABSENT: seasonal rhinorrhea Physical Exam Vital Signs: Temp Pulse Resp BP Pulse Ox 74 18 123/71 99 09/18/18 15:45 09/18/18 18:30 09/18/18 18:30 09/18/18 18:30 Intake & Output 09/17/18 09/18/18 09/19/18 06:59 06:59 06:59 Intake Total 1000 Balance 1000 Weight 71.1 kg General appearance: PRESENT: no acute distress, well-developed, well-nourished Head exam: PRESENT: atraumatic, normocephalic Eye exam: PRESENT: conjunctiva pink, EOMI, PERRLA. ABSENT: scleral icterus Ear exam: PRESENT: normal external ear exam Mouth exam: PRESENT: moist, tongue midline Neck exam: PRESENT: full ROM. ABSENT: carotid bruit, JVD, lymphadenopathy, thyromegaly Respiratory exam: PRESENT: clear to auscultation gretta Cardiovascular exam: PRESENT: RRR. ABSENT: diastolic murmur, rubs, systolic murmur Vascular exam: PRESENT: normal capillary refill. ABSENT: pallor GI/Abdominal exam: PRESENT: normal bowel sounds, soft. ABSENT: distended, guarding, mass, organolmegaly, rebound, tenderness Rectal exam: PRESENT: deferred Extremities exam: ABSENT: pedal edema Musculoskeletal exam: PRESENT: deformity - related to her multiplke joint involvement with arthritis. ABSENT: tenderness Neurological exam: PRESENT: alert, awake, oriented to person, oriented to place, oriented to time, oriented to situation, abnormal gait - reported unsteadiness prior to ED presentation, CN II-XII grossly intact, other - equivocal right s ided hemiparesis with muscle power 4/5. ABSENT: motor sensory deficit Psychiatric exam: PRESENT: appropriate affect, normal mood. ABSENT: homicidal ideation, suicidal ideation Skin exam: PRESENT: dry, intact, warm. ABSENT: cyanosis, rash Results Laboratory Results: 09/18/18 12:41 09/18/18 12:41 09/18/18 09/18/1809/18/19 12:41 12:41 14:45 WBC 4.3 RBC 4.07 Hgb 13.3 Hct 39.7 MCV 98 H MCH 32.6 MCHC 33.4 RDW 13.2 Plt Count 197 Seg Neutrophils % Not Reportable Lymphocytes % Not Reportable Monocytes % Not Reportable Eosinophils % Not Reportable Basophils % Not Reportable Absolute Neutrophils Not Reportable Absolute Lymphocytes Not Reportable Absolute Monocytes Not Reportable Absolute Eosinophils Not Reportable Absolute Basophils Not Reportable Sodium 142.8 Potassium 3.7 Chloride 108 H Carbon Dioxide 26 Anion Gap 9 BUN 21 H Creatinine 1.08 Est GFR ( Amer) 59 L Est GFR (Non-Af Amer) 49 L Glucose 72 L Calcium 9.4 Total Bilirubin 0.4 AST 46 H ALT 28 Alkaline Phosphatase 92 Total Protein 7.2 Albumin 3.9 Urine Color YELLOW Urine Appearance CLEAR Urine pH 5.0 Ur Specific [place] 1.018 Urine Protein NEGATIVE Urine Glucose (UA) NEGATIVE Urine Ketones TRACE H Urine Blood SMALL H Urine Nitrite NEGATIVE Ur Leukocyte Esterase NEGATIVE Urine WBC (Auto) 2 Urine RBC (Auto) 2 09/18/18 09/18/18 12:41 12:41 Creatine Kinase 232 H CK-MB (CK-2) 1.41 Troponin I < 0.012 Impressions: Chest X-Ray 09/18/18 12:24 IMPRESSION: NO ACUTE RADIOGRAPHIC FINDING IN THE CHEST. Head CT 09/18/18 12:24 IMPRESSION: Mild involutional changes with no acute intracranial imaging findings. EVIDENCE OF ACUTE STROKE: NO. Pelvis X-Ray 09/18/18 13:04 IMPRESSION: NEGATIVE STUDY OF THE PELVIS. Assessment & Plan - Diagnosis (1) Accidental fall Qualifiers: Encounter type: initial encounter Qualified Code(s): W19.XXXA - Unspecified fall, initial encounter Is this a current diagnosis for this admission?: Yes Plan: See admitting attending physician orders for details of care plan. (2) Muscle injury Is this a current diagnosis for this admission?: Yes Plan: See admitting attending physician orders for details of care plan. (3) Nausea vomiting and diarrhea Is this a current diagnosis for this admission?: Yes Plan: See admitting attending physician orders for details of care plan. (4) Chronic low back pain Is this a current diagnosis for this admission?: Yes Plan: See admitting attending physician orders for details of care plan. (5) Degenerative disc disease, lumbar Is this a current diagnosis for this admission?: Yes Plan: See admitting attending physician orders for details of care plan. (6) Osteoarthritis involving multiple joints on both sides of body Is this a current diagnosis for this admission?: Yes Plan: See admitting attending physician orders for details of care plan. (7) History of TIA (transient ischemic attack) Is this a current diagnosis for this admission?: Yes Plan: See admitting attending physician orders for details of care plan. (8) HTN (hypertension) Qualifiers: Hypertension type: essential hypertension Qualified Code(s): I10 - Essential (primary) hypertension Is this a current diagnosis for this admission?: Yes Plan: See admitting attending physician orders for details of care plan. 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 (10) Seasonal allergic rhinitis Qualifiers: Allergic rhinitis trigger: unspecified Qualified Code(s): J30.2 - Other seasonal allergic rhinitis Is this a current diagnosis for this admission?: Yes Plan: See admitting attending physician orders for details of care plan. (11) Sleep disorder Is this a current diagnosis for this admission?: Yes Plan: See admitting attending physician orders for details of care plan. (12) Mixed anxiety and depressive disorder Is this a current diagnosis for this admission?: Yes Plan: See admitting attending physician orders for details of care plan. - Time Time Spent: 50 to 70 Minutes Medications reviewed and adjusted accordingly: Yes Anticipated discharge: Home with Homehealth Within: Other - Inpatient Certification Based on my medical assessment, after consideration of the patient's comorbidities, presenting symptoms, or acuity I expect that the services needed warrant INPATIENT care.: Yes I certify that my determination is in accordance with my understanding of Medicare's requirements for reasonable and necessary INPATIENT services [42 CFR 412.3e].: Yes Medical Necessity: Significant Comorbidiites Make Outpatient Treatment Too Risky, Need Close Monitoring Due to Risk of Patient Decompensation, Need For IV Fluids, Need For Continuous Telemetry Monitoring, Risk of Complication if Not Cared For in Hospital, Risk of Diagnosis Which Will Require Inpatient Eval/Care/Monitoring Post Hospital Care: D/C [employer] Documentation - Plan Summary Plan Summary: See admitting attending physician orders for details of care plan.
[2018-09-18] MEDS ORDERED: (PENDING PHARMACY ID) (Rizatriptan Benzoate [Maxalt] 10 MG) PO PRN ×2 (19:52→20:10)
[2018-09-18] MEDS ORDERED: MECLIZINE HCL 25 MG TABLET PO PRN (19:52)
[2018-09-18] MEDS ORDERED: PRAMOXINE HCL/MINERAL OIL/ZNOX OINT 28.3 GM PR PRN (20:13)
[2018-09-18] MEDS ORDERED: THYROID PORK 15 MG PO SCH (21:00)
[2018-09-18] MEDS ORDERED: ONDANSETRON HCL INJ/PF 4 MG/2 ML SDV IV PRN (21:19)
[2018-09-18] MEDS ORDERED: TOPIRAMATE 25 MG TABLET ONE (21:56)
[2018-09-18] MEDS: PREGABALIN 75 MG CAPSULE PO SCH (21:58)
[2018-09-18] MEDS: LOPERAMIDE HCL 2 MG CAPSULE PO PRN (21:58)
[2018-09-18] MEDS: LORAZEPAM 0.5 MG TABLET PO SCH (21:58)
[2018-09-18] MEDS: ASPIRIN/DIPYRIDAMOLE 25-200 MG 1 CAP.SR CPMP.12HR PO SCH (21:58)
[2018-09-18] MEDS: NORMAL SALINE 1000 ML 1,000 ML IV PRN (21:59)
[2018-09-18] MEDS: TOPIRAMATE 25 MG TABLET PO SCH (22:03)
[2018-09-19] MEDS: PANTOPRAZOLE SODIUM 40 MG TABLET.DR PO SCH (06:06)
[2018-09-19] MEDS: PREGABALIN 75 MG CAPSULE PO SCH ×3 (06:06→22:00)
[2018-09-19 07:12] LABS: HEMATOCRIT 34.1 % (36.0-47.0); HEMOGLOBIN 11.4 g/dL (12.0-15.5); MEAN CORPUSCULAR HEMOGLOBIN 32.8 pg (27.0-33.4); MEAN CORPUSCULAR HGB CONC 33.6 g/dL (32.0-36.0); MEAN CORPUSCULAR VOLUME 98 fl (80-97); PLATELET COUNT 163 10^3/uL (150-450); RED BLOOD COUNT 3.49 10^6/uL (3.72-5.28); RED CELL DISTRIBUTION WIDTH 13.3 % (11.5-14.0)
[2018-09-19 07:30] LABS: ALANINE AMINOTRANSFERASE 25 U/L (9-52); ALBUMIN 2.8 g/dL (3.5-5.0); ALKALINE PHOSPHATASE 72 U/L (38-126); ANION GAP 7 (5-19); ASPARTATE AMINO TRANSFERASE 26 U/L (14-36); BILIRUBIN,DIRECT 0.3 mg/dL (0.0-0.4); BILIRUBIN,TOTAL 0.8 mg/dL (0.2-1.3); BLOOD UREA NITROGEN 18 mg/dL (7-20); CALCIUM 8.7 mg/dL (8.4-10.2); CARBON DIOXIDE 25 mmol/L (22-30); CHLORIDE 110 mmol/L (98-107); CREATINE KINASE 276 U/L (30-135); GLUCOSE 99 mg/dL (75-110); PHOSPHORUS 3.3 mg/dL (2.5-4.5); SODIUM 141.6 mmol/L (137-145); TOTAL PROTEIN 5.4 g/dL (6.3-8.2)
[2018-09-19 07:39] LABS: CREATINE KINASE MB 0.57 ng/mL (<4.55)
[2018-09-19 07:48] LABS: TROPONIN I < 0.012 ng/mL
--- NOTE | 2018-09-19 08:04 | PDOC PROGRESS REPORT ---
Subjective Progress Note for:: 09/19/18 Subjective:: Patient denied any chest pain or difficulty with breathing. Sitting in bed and feeding self this morning. Remain fully lucid. Denied any focal weakness. No fever or chills. No nausea, vomiting, or diarrhea since admission to the floor. Reason For Visit: FALL,RENAL IMPAIRMENT,DIARRHEA,HTN, HYPOTHYROIDISM Physical Exam Vital Signs: Temp Pulse Resp BP Pulse Ox 99.0 F 83 19 100/49 L 99 09/19/18 03:47 09/19/18 03:47 09/19/18 03:47 09/19/18 03:47 09/19/18 03:47 Intake & Output 09/18/18 09/19/18 09/20/18 06:59 06:59 06:59 Intake Total 1000 Balance 1000 Weight 65.9 kg General appearance: PRESENT: no acute distress, well-developed, well-nourished Head exam: PRESENT: atraumatic, normocephalic Eye exam: PRESENT: conjunctiva pink. ABSENT: scleral icterus Ear exam: PRESENT: normal external ear exam Mouth exam: PRESENT: moist Respiratory exam: PRESENT: clear to auscultation gretta Cardiovascular exam: PRESENT: RRR, +S1, +S2. ABSENT: diastolic murmur, rubs, systolic murmur Vascular exam: ABSENT: pallor GI/Abdominal exam: PRESENT: normal bowel sounds, soft. ABSENT: distended, guarding, mass, organolmegaly, rebound, tenderness Extremities exam: ABSENT: pedal edema Neurological exam: PRESENT: alert, awake, oriented to person, oriented to place, oriented to time, oriented to situation, CN II-XII grossly intact. ABSENT: motor sensory deficit Psychiatric exam: PRESENT: appropriate affect, normal mood. ABSENT: homicidal ideation, suicidal ideation Skin exam: PRESENT: dry, warm Results Laboratory Results: 09/19/18 06:15 09/18/18 09/18/18 09/18/18 12:41 12:41 14:45 WBC 4.3 RBC 4.07 Hgb 13.3 Hct 39.7 MCV 98 H MCH 32.6 MCHC 33.4 RDW 13.2 Plt Count 197 Seg Neutrophils % Not Reportable Lymphocytes % Not Reportable Monocytes % Not Reportable Eosinophils % Not Reportable Basophils % Not Reportable Absolute Neutrophils Not Reportable Absolute Lymphocytes Not Reportable Absolute Monocytes Not Reportable Absolute Eosinophils Not Reportable Absolute Basophils Not Reportable Sodium 142.8 Potassium 3.7 Chloride 108 H Carbon Dioxide 26 Anion Gap 9 BUN 21 H Creatinine 1.08 Est GFR ( Amer) 59 L Est GFR (Non-Af Amer) 49 L Glucose 72 L Calcium 9.4 Phosphorus Magnesium Total Bilirubin 0.4 AST 46 H ALT 28 Alkaline Phosphatase 92 Total Protein 7.2 Albumin 3.9 Urine Color YELLOW Urine Appearance CLEAR Urine pH 5.0 Ur Specific [place] 1.018 Urine Protein NEGATIVE Urine Glucose (UA) NEGATIVE Urine Ketones TRACE H Urine Blood SMALL H Urine Nitrite NEGATIVE Ur Leukocyte Esterase NEGATIVE Urine WBC (Auto) 2 Urine RBC (Auto) 2 09/19/18 09/19/18 06:15 06:15 WBC RBC Hgb Hct MCV MCH MCHC RDW Plt Count Seg Neutrophils % Not Reportable Lymphocytes % Not Reportable Monocytes % Not Reportable Eosinophils % Not Reportable Basophils % Not Reportable Absolute Neutrophils Not Reportable Absolute Lymphocytes Not Reportable Absolute Monocytes Not Reportable Absolute Eosinophils Not Reportable Absolute Basophils Not Reportable Sodium 141.6 Potassium 4.0 Chloride 110 H Carbon Dioxide 25 Anion Gap 7 BUN 18 Creatinine 0.98 Est GFR ( Amer) > 60 Est GFR (Non-Af Amer) 54 L Glucose 99 Calcium 8.7 Phosphorus 3.3 Magnesium 2.1 Total Bilirubin 0.8 AST 26 ALT 25 Alkaline Phosphatase 72 Total Protein 5.4 L Albumin 2.8 L Urine Color Urine Appearance Urine pH Ur Specific [place] Urine Protein Urine Glucose (UA) Urine Ketones Urine Blood Urine Nitrite Ur Leukocyte Esterase Urine WBC (Auto) Urine RBC (Auto) 09/18/18 09/18/18 09/19/18 12:41 12:41 06:15 Creatine Kinase 232 H 276 H CK-MB (CK-2) 1.41 Troponin I < 0.012 09/19/18 06:15 Creatine Kinase CK-MB (CK-2) 0.57 Troponin I < 0.012 Impressions: Chest X-Ray 09/18/18 12:24 IMPRESSION: NO ACUTE RADIOGRAPHIC FINDING IN THE CHEST. Head CT 09/18/18 12:24 IMPRESSION: Mild involutional changes with no acute intracranial imaging findings. EVIDENCE OF ACUTE STROKE: NO. Pelvis X-Ray 09/18/18 13:04 IMPRESSION: NEGATIVE STUDY OF THE PELVIS. Assessment & Plan - Diagnosis (1) Accidental fall Qualifiers: Encounter type: initial encounter Qualified Code(s): W19.XXXA - Unspecified fall, initial encounter Is this a current diagnosis for this admission?: Yes (2) Muscle injury Is this a current diagnosis for this admission?: Yes (3) Nausea vomiting and diarrhea Is this a current diagnosis for this admission?: Yes (4) Chronic low back pain Is this a current diagnosis for this admission?: Yes (5) Degenerative disc disease, lumbar Is this a current diagnosis for this admission?: Yes (6) Osteoarthritis involving multiple joints on both sides of body Is this a current diagnosis for this admission?: Yes (7) History of TIA (transient ischemic attack) Is this a current diagnosis for this admission?: Yes (8) HTN (hypertension) Qualifiers: Hypertension type: essential hypertension Qualified Code(s): I10 - Essential (primary) hypertension Is this a current diagnosis for this admission?: Yes (9) Hypothyroidism Qualifiers: 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 - Time Time Spent with patient: 25-34 minutes Medications reviewed and adjusted accordingly: Yes Anticipated discharge: Home with Homehealth Within: Other - Inpatient Certification Based on my medical assessment, after consideration of the patient's comorbidities, presenting symptoms, or acuity I expect that the services needed warrant INPATIENT care.: Yes I certify that my determination is in accordance with my understanding of Medicare's requirements for reasonable and necessary INPATIENT services [42 CFR 412.3e].: Yes Medical Necessity: Significant Comorbidiites Make Outpatient Treatment Too Risky, Need Close Monitoring Due to Risk of Patient Decompensation, Need For IV Fluids, Risk of Complication if Not Cared For in Hospital, Risk of Diagnosis Which Will Require Inpatient Eval/Care/Monitoring Post Hospital Care: D/C [employer] Documentation - Plan Summary Plan Summary: Continue IV fluid support. Follow up on CK trend. Add Beneprotein supplementation to her diet. Continue on oall other current medication management.
[2018-09-19 08:13] LABS: ABSOLUTE LYMPHOCYTES# (MANUAL) 0.4 10^3/uL (0.5-4.7); ABSOLUTE MONOCYTES # (MANUAL) 0.4 10^3/uL (0.1-1.4); ABSOLUTE NEUTROPHILS# (MANUAL) 8.8 10^3/uL (1.7-8.2); BAND NEUTROPHILS % (MANUAL) 4 % (3-5); BASOPHILS % (MANUAL) 0 % (0-2); EOSINOPHILS % (MANUAL) 0 % (0-6); LYMPHOCYTES % (MANUAL) 4 % (13-45); MONOCYTES % (MANUAL) 4 % (3-13); SEGMENTED NEUTROPHILS % (MAN) 88 % (42-78); TOTAL CELLS COUNTED 100
[2018-09-19 08:16] LABS: PLATELET COMMENT ADEQUATE; RBC MORPHOLOGY COMMENT NORMO-CYTIC/CHROMIC; TOXIC GRANULATION SLIGHT; TOXIC VACUOLATION PRESENT
[2018-09-19 08:17] LABS: WHITE BLOOD COUNT 9.6 10^3/uL (4.0-10.5)
[2018-09-19] MEDS ORDERED: THYROID PORK 15 MG PO SCH (10:00)
[2018-09-19] MEDS: LOPERAMIDE HCL 2 MG CAPSULE PO PRN (10:32)
[2018-09-19] MEDS: ASPIRIN/DIPYRIDAMOLE 25-200 MG 1 CAP.SR CPMP.12HR PO SCH ×2 (10:32→22:00)
[2018-09-19] MEDS: DULOXETINE HCL 30 MG CAPSULE.DR PO SCH (10:33)
[2018-09-19] MEDS: TOPIRAMATE 25 MG TABLET PO SCH ×2 (10:33→22:01)
[2018-09-19] MEDS: HYDROCODONE/ACETAMINOPHEN 5-325 MG TABLET PO PRN (10:33)
[2018-09-19] MEDS: LOSARTAN POTASSIUM 50 MG TABLET PO SCH (10:33)
[2018-09-19] MEDS: ENOXAPARIN SODIUM INJ 40 MG/0.4 ML DISP.SYRIN SUBCUT SCH (10:34)
[2018-09-19] MEDS: METOPROLOL SUCCINATE 50 MG TAB.SR.24H PO SCH (10:34)
[2018-09-19] MEDS: LORAZEPAM 0.5 MG TABLET PO SCH (22:01)
[2018-09-20] MEDS: NORMAL SALINE 1000 ML 1,000 ML IV PRN ×2 (00:42→13:19)
[2018-09-20] MEDS: PANTOPRAZOLE SODIUM 40 MG TABLET.DR PO SCH (05:06)
[2018-09-20] MEDS: PREGABALIN 75 MG CAPSULE PO SCH ×3 (05:06→21:19)
[2018-09-20 06:34] LABS: HEMATOCRIT 32.4 % (36.0-47.0); HEMOGLOBIN 10.9 g/dL (12.0-15.5); MEAN CORPUSCULAR HGB CONC 33.7 g/dL (32.0-36.0); MEAN CORPUSCULAR VOLUME 98 fl (80-97); PLATELET COUNT 152 10^3/uL (150-450); RED CELL DISTRIBUTION WIDTH 13.6 % (11.5-14.0); WHITE BLOOD COUNT 8.5 10^3/uL (4.0-10.5)
[2018-09-20 07:03] LABS: ANION GAP 7 (5-19); BLOOD UREA NITROGEN 24 mg/dL (7-20); CALCIUM 8.6 mg/dL (8.4-10.2); CARBON DIOXIDE 24 mmol/L (22-30); CHLORIDE 109 mmol/L (98-107); CREATINE KINASE 211 U/L (30-135); GLUCOSE 84 mg/dL (75-110); POTASSIUM 3.9 mmol/L (3.6-5.0); SODIUM 140.2 mmol/L (137-145)
[2018-09-20 07:14] LABS: ABSOLUTE LYMPHOCYTES# (MANUAL) 0.1 10^3/uL (0.5-4.7); ABSOLUTE MONOCYTES # (MANUAL) 0.5 10^3/uL (0.1-1.4); ABSOLUTE NEUTROPHILS# (MANUAL) 7.7 10^3/uL (1.7-8.2); ANISOCYTOSIS SLIGHT; BASOPHILS % (MANUAL) 0 % (0-2); EOSINOPHILS % (MANUAL) 3 % (0-6); LYMPHOCYTES % (MANUAL) 1 % (13-45); MONOCYTES % (MANUAL) 6 % (3-13); OVALOCYTES SLIGHT; SEGMENTED NEUTROPHILS % (MAN) 90 % (42-78); TOTAL CELLS COUNTED 100
[2018-09-20 07:15] LABS: PLATELET COMMENT ADEQUATE
--- NOTE | 2018-09-20 07:34 | PDOC PROGRESS REPORT ---
Subjective Progress Note for:: 09/20/18 Subjective:: Patient denied any chest pain or difficulty with breathing. No fever or chills. No abdominal pain, nausea, vomiting, or diarrhea. Reason For Visit: FALL,RENAL IMPAIRMENT,DIARRHEA,HTN, HYPOTHYROIDISM Physical Exam Vital Signs: Temp Pulse Resp BP Pulse Ox 98.2 F 64 14 101/57 L 93 09/20/18 03:28 09/20/18 03:28 09/20/18 03:28 09/20/18 03:28 09/20/18 03:28 Intake & Output 09/19/18 09/20/18 09/21/18 06:59 06:59 06:59 Intake Total 1000 1540 Balance 1000 1540 Weight 65.9 kg 68.4 kg Physical Exam: General appearance: PRESENT: no acute distress, well-developed, well-nourished Head exam: PRESENT: atraumatic, normocephalic Eye exam: PRESENT: conjunctiva pink. ABSENT: pallor, scleral icterus Ear exam: PRESENT: normal external ear exam Mouth exam: PRESENT: moist Respiratory exam: PRESENT: clear to auscultation gretta Cardiovascular exam: PRESENT: RRR, +S1, +S2. ABSENT: diastolic murmur, rubs, systolic murmur GI/Abdominal exam: PRESENT: normal bowel sounds, soft. ABSENT: distended, guarding, mass, organomegaly, rebound, tenderness Extremities exam: ABSENT: pedal edema Neurological exam: PRESENT: alert, awake, oriented to person, oriented to place, oriented to time, oriented to situation, CN II-XII grossly intact. ABSENT: motor sensory deficit Psychiatric exam: PRESENT: appropriate affect, normal mood. ABSENT: homicidal ideation, suicidal ideation Skin exam: PRESENT: dry, warm Results Laboratory Results: 09/20/18 06:00 09/20/18 06:00 09/19/18 09/19/18 09/20/18 06:15 06:15 06:00 WBC 9.6 D 8.5 RBC 3.49 L 3.30 L Hgb 11.4 L 10.9 L Hct 34.1 L 32.4 L MCV 98 H 98 H MCH 32.8 33.0 MCHC 33.6 33.7 RDW 13.3 13.6 Plt Count 163 152 Seg Neutrophils % Not Reportable Lymphocytes % Not Reportable Monocytes % Not Reportable Eosinophils % Not Reportable Basophils % Not Reportable Absolute Neutrophils Not Reportable Absolute Lymphocytes Not Reportable Absolute Monocytes Not Reportable Absolute Eosinophils Not Reportable Absolute Basophils Not Reportable Sodium 141.6 Potassium 4.0 Chloride 110 H Carbon Dioxide 25 Anion Gap 7 BUN 18 Creatinine 0.98 Est GFR ( Amer) > 60 Est GFR (Non-Af Amer) 54 L Glucose 99 Calcium 8.7 Phosphorus 3.3 Magnesium 2.1 Total Bilirubin 0.8 AST 26 ALT 25 Alkaline Phosphatase 72 Total Protein 5.4 L Albumin 2.8 L 09/20/18 06:00 WBC RBC Hgb Hct MCV MCH MCHC RDW Plt Count Seg Neutrophils % Lymphocytes % Monocytes % Eosinophils % Basophils % Absolute Neutrophils Absolute Lymphocytes Absolute Monocytes Absolute Eosinophils Absolute Basophils Sodium 140.2 Potassium 3.9 Chloride 109 H Carbon Dioxide 24 Anion Gap 7 BUN 24 H Creatinine 1.53 H Est GFR ( Amer) 39 L Est GFR (Non-Af Amer) 32 L Glucose 84 Calcium 8.6 Phosphorus Magnesium Total Bilirubin AST ALT Alkaline Phosphatase Total Protein Albumin 09/18/18 09/18/18 09/19/18 12:41 12:41 06:15 Creatine Kinase 232 H 276 H CK-MB (CK-2) 1.41 Troponin I < 0.012 09/19/18 09/20/18 06:15 06:00 Creatine Kinase 211 H CK-MB (CK-2) 0.57 Troponin I < 0.012 Impressions: Chest X-Ray 09/18/18 12:24 IMPRESSION: NO ACUTE RADIOGRAPHIC FINDING IN THE CHEST. Head CT 09/18/18 12:24 IMPRESSION: Mild involutional changes with no acute intracranial imaging fin dings. EVIDENCE OF ACUTE STROKE: NO. Pelvis X-Ray 09/18/18 13:04 IMPRESSION: NEGATIVE STUDY OF THE PELVIS. Assessment & Plan - Diagnosis (1) Accidental fall Qualifiers: Encounter type: initial encounter Qualified Code(s): W19.XXXA - Unspecified fall, initial encounter Is this a current diagnosis for this admission?: Yes (2) Muscle injury Is this a current diagnosis for this admission?: Yes (3) Nausea vomiting and diarrhea Is this a current diagnosis for this admission?: Yes (4) Chronic low back pain Is this a current diagnosis for this admission?: Yes (5) Degenerative disc disease, lumbar Is this a current diagnosis for this admission?: Yes (6) Osteoarthritis involving multiple joints on both sides of body Is this a current diagnosis for this admission?: Yes (7) History of TIA (transient ischemic attack) Is this a current diagnosis for this admission?: Yes (8) HTN (hypertension) Qualifiers: Hypertension type: essential hypertension Qualified Code(s): I10 - Essential (primary) hypertension Is this a current diagnosis for this admission?: Yes (9) Hypothyroidism Qualifiers: 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 - Time Time Spent with patient: 25-34 minutes Medications reviewed and adjusted accordingly: Yes Anticipated discharge: SNF Within: Other - Inpatient Certification Based on my medical assessment, after consideration of the patient's comorbidities, presenting symptoms, or acuity I expect that the services needed warrant INPATIENT care.: Yes I certify that my determination is in accordance with my understanding of Medicare's requirements for reasonable and necessary INPATIENT services [42 CFR 412.3e].: Yes Medical Necessity: Significant Comorbidiites Make Outpatient Treatment Too Risky, Need Close Monitoring Due to Risk of Patient Decompensation, Need For IV Fluids, Need For Continuous Telemetry Monitoring, Risk of Complication if Not Cared For in Hospital, Risk of Diagnosis Which Will Require Inpatient Eval/Care/Monitoring Post Hospital Care: D/C or Transfer Summary - Plan Summary Plan Summary: Folow up on her urinalysis and possible culture if necessary in view of her subtle left shift in WBC and recent fall to r/o UTI as possible cause. Continue IV fluid support. 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
[2018-09-20] MEDS: HYDROCODONE/ACETAMINOPHEN 5-325 MG TABLET PO PRN ×2 (08:32→19:44)
[2018-09-20] MEDS: ASPIRIN/DIPYRIDAMOLE 25-200 MG 1 CAP.SR CPMP.12HR PO SCH ×2 (10:04→21:19)
[2018-09-20] MEDS: DULOXETINE HCL 30 MG CAPSULE.DR PO SCH (10:04)
[2018-09-20] MEDS: METOPROLOL SUCCINATE 50 MG TAB.SR.24H PO SCH (10:05)
[2018-09-20] MEDS: LOSARTAN POTASSIUM 50 MG TABLET PO SCH (10:05)
[2018-09-20] MEDS: ENOXAPARIN SODIUM INJ 40 MG/0.4 ML DISP.SYRIN SUBCUT SCH (10:06)
[2018-09-20] MEDS: TOPIRAMATE 25 MG TABLET PO SCH ×2 (10:06→21:19)
[2018-09-20] MEDS: LOPERAMIDE HCL 2 MG CAPSULE PO PRN (10:08)
--- NOTE | 2018-09-20 10:30 | EKG REPORT ---
SEVERITY:- ABNORMAL ECG - SINUS RHYTHM LEFT AXIS DEVIATION BORDERLINE R WAVE PROGRESSION, ANTERIOR LEADS NONSPECIFIC T ABNORMALITIES, INFERIOR LEADS : Confirmed by: Willy Mo 20-Sep-2018 10:27:54
[2018-09-20 10:44] LABS: APPEARANCE,URINE CLEAR; BILIRUBIN,URINE NEGATIVE (NEGATIVE); COLOR,URINE YELLOW; GLUCOSE, URINE NEGATIVE (NEGATIVE); KETONES,URINE NEGATIVE (NEGATIVE); LEUKOCYTE ESTERASE,URINE SMALL (NEGATIVE); NITRITE,URINE NEGATIVE (NEGATIVE); PROTEIN,URINE NEGATIVE (NEGATIVE); URINE SPECIFIC GRAVITY 1.011; UROBILINOGEN,URINE NEGATIVE mg/dL (<2.0)
[2018-09-20] MEDS: LORAZEPAM 0.5 MG TABLET PO SCH (21:19)
[2018-09-21] MEDS: NORMAL SALINE 1000 ML 1,000 ML IV PRN (01:23)
[2018-09-21] MEDS: PREGABALIN 75 MG CAPSULE PO SCH ×3 (05:25→21:40)
[2018-09-21] MEDS: PANTOPRAZOLE SODIUM 40 MG TABLET.DR PO SCH (05:25)
--- NOTE | 2018-09-21 07:54 | PDOC PROGRESS REPORT ---
Subjective Progress Note for:: 09/21/18 Subjective:: No chest pain or difficulty with breathing. No fever or chills. No nausea, vomiting, or abdominal pain. She denied any voiding problem. Reason For Visit: FALL,RENAL IMPAIRMENT,DIARRHEA,HTN, HYPOTHYROIDISM Physical Exam Vital Signs: Temp Pulse Resp BP Pulse Ox 98.1 F 70 12 152/74 H 98 09/21/18 03:23 09/21/18 07:00 09/21/18 03:23 09/21/18 03:23 09/21/18 03:23 Intake & Output 09/20/18 09/21/18 09/22/18 06:59 06:59 06:59 Intake Total 1540 2318 Output Total 400 Balance 1540 1918 Weight 68.4 kg 72.9 kg Physical Exam: General appearance: PRESENT: no acute distress, well-developed, well-nourished Head exam: PRESENT: atraumatic, normocephalic Eye exam: PRESENT: conjunctiva pink. ABSENT: pallor, scleral icterus Ear exam: PRESENT: normal external ear exam Mouth exam: PRESENT: moist Respiratory exam: PRESENT: clear to auscultation gretta Cardiovascular exam: PRESENT: RRR, +S1, +S2. ABSENT: diastolic murmur, rubs, systolic murmur GI/Abdominal exam: PRESENT: normal bowel sounds, soft. ABSENT: distended, guarding, mass, organomegaly, rebound, tenderness Extremities exam: ABSENT: pedal edema Neurological exam: PRESENT: alert, awake, oriented to person, oriented to place, oriented to time, oriented to situation, CN II-XII grossly intact. ABSENT: motor sensory deficit Psychiatric exam: PRESENT: appropriate affect, normal mood. ABSENT: homicidal ideation, suicidal ideation Skin exam: PRESENT: dry, warm Results Laboratory Results: 09/20/18 06:00 09/20/18 06:00 09/20/18 10:00 Urine Color YELLOW Urine Appearance CLEAR Urine pH 5.0 Ur Specific Jeffers 1.011 Urine Protein NEGATIVE Urine Glucose (UA) NEGATIVE Urine Ketones NEGATIVE Urine Blood SMALL H Urine Nitrite NEGATIVE Ur Leukocyte Esterase SMALL H Urine WBC (Auto) 2 Urine RBC (Auto) 1 09/18/18 09/18/18 09/19/18 12:41 12:41 06:15 Creatine Kinase 232 H 276 H CK-MB (CK-2) 1.41 Troponin I < 0.012 09/19/18 09/20/18 06:15 06:00 Creatine Kinase 211 H CK-MB (CK-2) 0.57 Troponin I < 0.012 Impressions: Chest X-Ray 09/18/18 12:24 IMPRESSION: NO ACUTE RADIOGRAPHIC FINDING IN THE CHEST. Head CT 09/18/18 12:24 IMPRESSION: Mild involutional changes with no acute intracranial imaging findings. EVIDENCE OF ACUTE STROKE: NO. Pelvis X-Ray 09/18/18 13:04 IMPRESSION: NEGATIVE STUDY OF THE PELVIS. Assessment & Plan - Diagnosis (1) Accidental fall Qualifiers: Encounter type: initial encounter Qualified Code(s): W19.XXXA - Unspecified fall, initial encounter Is this a current diagnosis for this admission?: Yes (2) Muscle injury Is this a current diagnosis for this admission?: Yes (3) Nausea vomiting and diarrhea Is this a current diagnosis for this admission?: Yes (4) Chronic low back pain Is this a current diagnosis for this admission?: Yes (5) Degenerative disc disease, lumbar Is this a current diagnosis for this admission?: Yes (6) Osteoarthritis involving multiple joints on both sides of body Is this a current diagnosis for this admission?: Yes (7) History of TIA (transient ischemic attack) Is this a current diagnosis for this admission?: Yes (8) HTN (hypertension) Qualifiers: Hypertension type: essential hypertension Qualified Code(s): I10 - Essential (primary) hypertension Is this a current diagnosis for this admission?: Yes (9) Hypothyroidism Qualifiers: 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
[2018-09-21] MEDS: LOSARTAN POTASSIUM 50 MG TABLET PO SCH (09:48)
[2018-09-21] MEDS: HYDROCODONE/ACETAMINOPHEN 5-325 MG TABLET PO PRN (09:48)
[2018-09-21] MEDS: DULOXETINE HCL 30 MG CAPSULE.DR PO SCH (09:48)
[2018-09-21] MEDS: ASPIRIN/DIPYRIDAMOLE 25-200 MG 1 CAP.SR CPMP.12HR PO SCH ×2 (09:48→21:40)
[2018-09-21] MEDS: METOPROLOL SUCCINATE 50 MG TAB.SR.24H PO SCH (09:49)
[2018-09-21] MEDS: ENOXAPARIN SODIUM INJ 40 MG/0.4 ML DISP.SYRIN SUBCUT SCH (09:49)
[2018-09-21] MEDS: TOPIRAMATE 25 MG TABLET PO SCH ×2 (09:51→21:40)
[2018-09-21 10:34] LABS: ANION GAP 7 (5-19); BLOOD UREA NITROGEN 18 mg/dL (7-20); CARBON DIOXIDE 22 mmol/L (22-30); CHLORIDE 112 mmol/L (98-107); GLUCOSE 87 mg/dL (75-110); SODIUM 141.3 mmol/L (137-145)
[2018-09-21 12:29] LABS: HEMATOCRIT 34.4 % (36.0-47.0); HEMOGLOBIN 11.4 g/dL (12.0-15.5); MEAN CORPUSCULAR HEMOGLOBIN 32.6 pg (27.0-33.4); MEAN CORPUSCULAR VOLUME 99 fl (80-97); PLATELET COUNT 182 10^3/uL (150-450); RED BLOOD COUNT 3.49 10^6/uL (3.72-5.28); RED CELL DISTRIBUTION WIDTH 13.5 % (11.5-14.0)
[2018-09-21 12:48] LABS: ANION GAP 7 (5-19); BLOOD UREA NITROGEN 18 mg/dL (7-20); CALCIUM 9.2 mg/dL (8.4-10.2); CARBON DIOXIDE 23 mmol/L (22-30); CHLORIDE 112 mmol/L (98-107); GLUCOSE 104 mg/dL (75-110); POTASSIUM 4.2 mmol/L (3.6-5.0); SODIUM 142.3 mmol/L (137-145)
[2018-09-21 12:59] LABS: ABSOLUTE LYMPHOCYTES# (MANUAL) 0.2 10^3/uL (0.5-4.7); ABSOLUTE MONOCYTES # (MANUAL) 0.4 10^3/uL (0.1-1.4); ABSOLUTE NEUTROPHILS# (MANUAL) 3.2 10^3/uL (1.7-8.2); BASOPHILS % (MANUAL) 0 % (0-2); EOSINOPHILS % (MANUAL) 4 % (0-6); LYMPHOCYTES % (MANUAL) 6 % (13-45); MONOCYTES % (MANUAL) 9 % (3-13); SEGMENTED NEUTROPHILS % (MAN) 81 % (42-78); TOTAL CELLS COUNTED 100
[2018-09-21 13:01] LABS: OVALOCYTES SLIGHT; PLATELET COMMENT ADEQUATE; POIKILOCYTOSIS SLIGHT
[2018-09-21] MEDS: LORAZEPAM 0.5 MG TABLET PO SCH (21:40)
[2018-09-22] MEDS: NORMAL SALINE 1000 ML 1,000 ML IV PRN (00:54)
[2018-09-22] MEDS: HYDROCODONE/ACETAMINOPHEN 5-325 MG TABLET PO PRN ×2 (00:54→09:04)
[2018-09-22] MEDS: PANTOPRAZOLE SODIUM 40 MG TABLET.DR PO SCH (05:10)
[2018-09-22] MEDS: PREGABALIN 75 MG CAPSULE PO SCH ×2 (05:10→15:16)
[2018-09-22 05:27] LABS: ABSOLUTE EOSINOPHILS # (AUTO) 0.3 10^3/uL (0.0-0.6); ABSOLUTE LYMPHOCYTES (AUTO) 0.3 10^3/uL (0.5-4.7); ABSOLUTE MONOCYTES (AUTO) 0.4 10^3/uL (0.1-1.4); ABSOLUTE NEUT (AUTO) 3.2 10^3/uL (1.7-8.2); BASOPHILS % (AUTO) 0.5 % (0-2); EOSINOPHILS % (AUTO) 7.8 % (0-6); HEMATOCRIT 34.2 % (36.0-47.0); HEMOGLOBIN 11.4 g/dL (12.0-15.5); LYMPHOCYTES % (AUTO) 7.9 % (13-45); MEAN CORPUSCULAR HEMOGLOBIN 32.6 pg (27.0-33.4); MEAN CORPUSCULAR HGB CONC 33.3 g/dL (32.0-36.0); MEAN CORPUSCULAR VOLUME 98 fl (80-97); MONOCYTES % (AUTO) 9.3 % (3-13); PLATELET COUNT 172 10^3/uL (150-450); RED BLOOD COUNT 3.49 10^6/uL (3.72-5.28); RED CELL DISTRIBUTION WIDTH 13.3 % (11.5-14.0); SEGMENTED NEUTROPHILS % (AUTO) 74.5 % (42-78); TOTAL CELLS COUNTED % (AUTO) 100 %; WHITE BLOOD COUNT 4.2 10^3/uL (4.0-10.5)
[2018-09-22 06:00] LABS: ANION GAP 9 (5-19); BLOOD UREA NITROGEN 15 mg/dL (7-20); CARBON DIOXIDE 21 mmol/L (22-30); CHLORIDE 113 mmol/L (98-107); GLUCOSE 91 mg/dL (75-110); SODIUM 142.8 mmol/L (137-145)
[2018-09-22] MEDS: METOPROLOL SUCCINATE 50 MG TAB.SR.24H PO SCH (11:06)
[2018-09-22] MEDS: ENOXAPARIN SODIUM INJ 40 MG/0.4 ML DISP.SYRIN SUBCUT SCH (11:07)
[2018-09-22] MEDS: LOSARTAN POTASSIUM 50 MG TABLET PO SCH (11:07)
[2018-09-22] MEDS: ASPIRIN/DIPYRIDAMOLE 25-200 MG 1 CAP.SR CPMP.12HR PO SCH (11:07)
[2018-09-22] MEDS: DULOXETINE HCL 30 MG CAPSULE.DR PO SCH (11:07)
[2018-09-22] MEDS: TOPIRAMATE 25 MG TABLET PO SCH (11:07)
[2018-09-22 14:44] VITALS: BP 152/72
--- NOTE | 2018-09-22 15:06 | PDOC TRANSFER SUMMARY ---
General - Admit/Disc Date/PCP Admission Date/Primary Care Provider: 09/18/18 16:21 CHRISTIANO EUGENIO Discharge Date: 09/22/18 - Discharge Diagnosis (1) Accidental fall Is this a current diagnosis for this admission?: Yes (2) Muscle injury Is this a current diagnosis for this admission?: Yes (3) Nausea vomiting and diarrhea Is this a current diagnosis for this admission?: Yes (4) Chronic low back pain Is this a current diagnosis for this admission?: Yes (5) Degenerative disc disease, lumbar Is this a current diagnosis for this admission?: Yes (6) Osteoarthritis involving multiple joints on both sides of body Is this a current diagnosis for this admission?: Yes (7) History of TIA (transient ischemic attack) Is this a current diagnosis for this admission?: Yes (8) HTN (hypertension) Is this a current diagnosis for this admission?: Yes (9) Hypothyroidism Is this a current diagnosis for this admission?: Yes (10) Seasonal allergic rhinitis Is this a current diagnosis for this admission?: Yes (11) Sleep disorder Is this a current diagnosis for this admission?: Yes (12) Mixed anxiety and depressive disorder Is this a current diagnosis for this admission?: Yes - Additional Information Resuscitation Status: Full Code Home Medications: Aspirin/Dipyridamole [Aggrenox 25 mg/200 mg Capsule SA] 1 cap.sr PO Q12 09/18/18 Duloxetine HCl [Cymbalta] 60 mg PO DAILY 09/18/18 Hydrocodone/Acetaminophen [Dania 5-325 mg Tablet] 1 tab PO DAILYP PRN 09/18/18 Lorazepam [Ativan 0.5 mg Tablet] 0.5 mg PO QHS 09/18/18 Losartan/Hydrochlorothiazide [Hyzaar 100-12.5 Tablet] 1 each PO DAILY 09/18/18 Meclizine HCl [Antivert 25 mg Tablet] 25 mg PO TID 09/18/18 Metoprolol Succinate [Toprol Xl 50 mg Tab.sr] 50 mg PO DAILY 09/18/18 Pregabalin [Lyrica 75 mg Capsule] 75 mg PO Q8 09/18/18 Rizatriptan Benzoate [Maxalt] 10 mg PO ASDIR PRN 09/18/18 Thyroid,Pork [[place] Thyroid] 15 mg PO DAILY 09/18/18 Topiramate [Topamax 25 mg Tablet] 25 mg PO Q12 09/18/18 History of Present Illness Admission Date/PCP: 09/18/18 16:21 CHRISTIANO BECKER History of Present Illness: KELLEY BAEZA is a 82 year old female known to my practice who was brought to the ED by EMS after family found her on the floor at home earlier today. Patient reported that she fell about 9 pm last night in her attempt to transfer from her bedroom to her toilet. She was unable to get off the floor thereafter with noted increase weakness in her upper extremity. She has history of TIA with some degree of right lower extremity weakness but remain functional to care for herself. She was discovered on the floor about 11 am today after spending approximately fourteen hours on the floor. She reported two bouts diarrhea since her arrival in the hospital with associated nausea but no vomiting. She reported dizziness and intermittent palpitation in recent time. She denied any associated abdominal pain, headache, chest pain, neck pain, back pain, fevers, chills, flank pain, hematuria, or dysuria. She ambulate fairly with straight cane assistance but admitted to unsteady gait. Her initial evaluation in the ED was unrevealing and negative for acute stroke. She was advised hospitalization due to renal impairment and elevated total serum creatinine kinase. Her morbidities include Hypertension, Hypothyroidism, Osteoarthritis, lumbar degenerative disc disease, chronic low back pain with unsteady gait, mixed Anxiety and Depression, and history of TIA. Hospital Course Hospital Course: Patient was admitted for acute renal injury follow fall t home and been on the floor for about 14 hours that resulted in soft tissue injury and elevated serum creatinine kinase. She was managed with IV fluid normal saline infusion. Her serum creatinine kinase did show upward trend despite IV hydration but her renal indices did improved. She participated in physical therapy session due to her fall and inability to get off the floor by herself. She will be discharged today to SNF for short term rehabilitation. She will follow up in the office as instructed upon discharge. Facility staff should call office before discharge form SNF to coordinate post-acute care plan. There was concern for possible UTI as precipitating issue for her fall but her urine culture grew gram negative rods with subclinical colony count at 20,000 to 30,000 / ml. Organism identification and sensitivity were pending at the time of transfer to SNF. Physical Exam Vital Signs: Temp Pulse Resp BP Pulse Ox 98.8 F 67 16 152/72 H 100 09/22/18 11:48 09/22/18 11:48 09/22/18 11:48 09/22/18 11:48 09/22/18 11:48 Intake & Output 09/21/18 09/22/18 09/23/18 06:59 06:59 06:59 Intake Total 2318 880 390 Output Total 400 2000 900 Balance 7601 -4700 -289 Weight 72.9 kg 71.1 kg General appearance: PRESENT: no acute distress, well-developed, well-nourished Head exam: PRESENT: atraumatic, normocephalic Eye exam: PRESENT: conjunctiva pink. ABSENT: pallor, scleral icterus Ear exam: PRESENT: normal external ear exam Mouth exam: PRESENT: moist Respiratory exam: PRESENT: clear to auscultation gretta Cardiovascular exam: PRESENT: RRR, +S1, +S2. ABSENT: diastolic murmur, rubs, systolic murmur GI/Abdominal exam: PRESENT: normal bowel sounds, soft. ABSENT: distended, guarding, mass, organomegaly, rebound, tenderness Extremities exam: ABSENT: pedal edema Neurological exam: PRESENT: alert, awake, oriented to person, oriented to place, oriented to time, oriented to situation, CN II-XII grossly intact. ABSENT: motor sensory deficit Psychiatric exam: PRESENT: appropriate affect, normal mood. ABSENT: homicidal ideation, suicidal ideation Skin exam: PRESENT: dry, warm Results Laboratory Results: 09/22/18 05:05 09/22/18 05:05 09/22/18 09/22/18 05:05 05:05 WBC 4.2 RBC 3.49 L Hgb 11.4 L Hct 34.2 L MCV 98 H MCH 32.6 MCHC 33.3 RDW 13.3 Plt Count 172 Seg Neutrophils % 74.5 Lymphocytes % 7.9 L Monocytes % 9.3 Eosinophils % 7.8 H Basophils % 0.5 Absolute Neutrophils 3.2 Absolute Lymphocytes 0.3 L Absolute Monocytes 0.4 Absolute Eosinophils 0.3 Absolute Basophils 0.0 Sodium 142.8 Potassium 4.0 Chloride 113 H Carbon Dioxide 21 L Anion Gap 9 BUN 15 Creatinine 0.81 Est GFR ( Amer) > 60 Est GFR (Non-Af Amer) > 60 Glucose 91 Calcium 9.0 05/09/18/18 09/19/18 12:41 12:41 06:15 Creatine Kinase 232 H 276 H CK-MB (CK-2) 1.41 Troponin I < 0.012 09/19/18 09/20/18 09/21/18 06:15 06:00 09:33 Creatine Kinase 211 H 251 H CK-MB (CK-2) 0.57 Troponin I < 0.012 Impressions: Chest X-Ray 09/18/18 12:24 IMPRESSION: NO ACUTE RADIOGRAPHIC FINDING IN THE CHEST. Head CT 09/18/18 12:24 IMPRESSION: Mild involutional changes with no acute intracranial imaging findings. EVIDENCE OF ACUTE STROKE: NO. Pelvis X-Ray 09/18/18 13:04 IMPRESSION: NEGATIVE STUDY OF THE PELVIS. Transfer Plan - Disposition Transfer Plan: Transfer to [facility] for short term rehabilitation. Qualifiers - * PATIENT BEING DISCHARGED WITH ANY OF THE FOLLOWING DIAGNOSIS: No Acute Heart Failure Is this a Heart Failure Patient?: No Plan Discharge Plan: Transfer to [facility] for short term rehabilitation. Follow up in the office as instructed upon discharge from [facility].
== END 2018-09-22 16:36 | DRG 684 ==
LOC: ER 12:11 → EH 16:21 → 3S 18:47
PROVIDERS: ADMIT Internal Medicine Geriatric Medicine; ATTEND Internal Medicine Geriatric Medicine
DX: N17.9 Acute kidney failure, unspecified (principal); T14.8XXA Other injury of unspecified body region, initial encounter; R53.1 Weakness; I10 Essential (primary) hypertension; R19.7 Diarrhea, unspecified; J45.909 Unspecified asthma, uncomplicated; M19.90 Unspecified osteoarthritis, unspecified site; M54.5 Low back pain; M51.36 Other intervertebral disc degeneration, lumbar region; E03.9 Hypothyroidism, unspecified; J30.2 Other seasonal allergic rhinitis; F41.8 Other specified anxiety disorders; W18.11XA Fall from or off toilet without subsequent striking against object, initial encounter; Y93.89 Activity, other specified; Y92.091 Bathroom in other non-institutional residence as the place of occurrence of the external cause; Z79.82 Long term (current) use of aspirin; Z79.899 Other long term (current) drug therapy; Z86.73 Personal history of transient ischemic attack (TIA), and cerebral infarction without residual deficits
CPT/HCPCS: 36415; 70450; 71045; 72170; 80048; 80053; 81001; 82550; 82553; 82962; 83735; 84100; 84484; 85025; 85610; 85730; 87086; 87088; 87186; 87493; 93005; 93010; 96360; 99285; J1650; J2405; J3490; J7030

== ENCOUNTER 2018-11-01 09:33 | Emergency (ER) | payer MEDICARE, OTHER ==
[2018-11-01] MEDS ORDERED: MORPHINE SULFATE 10 MG/ML INJ IV ONE (10:20)
--- NOTE | 2018-11-01 10:20 | ER Document Report ---
ED Hip Pain/Injury - General Chief Complaint: Hip Pain Stated Complaint: FALL/LEFT HIP PAIN Time Seen by Provider: 11/01/18 09:43 Primary Care Provider: CHRISTIANO BECKER MD [Primary Care Provider] - Follow up as needed TRAVEL OUTSIDE OF THE [place] IN LAST 30 DAYS: No - HPI Notes: Patient is a 82-year-old female that presents to the emergency department for chief complaint of fall. 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 She states she hit her head on the coffee table and her left hip on the floor. She states she was unable to stand up after the fall but was able to crawl to the door to let the fabric lay out worker in. She denied any loss of consciousness. She is not having any headache, numbness, weakness o r vision changes. She denies any associated pain in her neck. She is complaining of a sharp pain in the left hip that is worse with movement and relieved some when she is holding still. She denies any bowel or bladder incontinence or lower extremity numbness. Past Medical History: Reviewed in chart Past Surgical History: Reviewed in chart Social History: Lives at home independently. Denies tobacco and alcohol use Family History: Reviewed and noncontributory for presenting illness Allergies: Reviewed, see documented allergy list. REVIEW OF SYSTEMS: CONSTITUTIONAL : No fever No chills No diaphoresis No recent illness EENT: No vision changes No congestion No sore throat CARDIOVASCULAR: No chest pain No palpitations RESPIRATORY: No shortness of breath No cough No difficulty breathing GASTROINTESTINAL: No abdominal pain No nausea No vomiting No diarrhea GENITOURINARY: No dysuria No hematuria No difficulty urinating MUSCULOSKELETAL: No back pain hip pain No arm pain SKIN: No rashes No lesions LYMPHATIC: No swollen, enlarged glands. NEUROLOGICAL: No lightheadedness No headache No weakness No paresthesias PSYCHIATRIC: No anxiety No depression PHYSICAL EXAMINATION: Vital signs reviewed, nursing noted reviewed. GENERAL: Well-appearing, well-nourished and in no acute distress. HEAD: Atraumatic, normocephalic. EYES: Eyes appear normal, extraocular movements intact, sclera anicteric, conjunctiva are normal. ENT: nares patent, oropharynx clear without exudates. Moist mucous membranes. NECK: No midline cervical spine tenderness, normal range of motion, supple without lymphadenopathy LUNGS: Breath sounds clear to auscultation bilaterally and equal. No wheezes rales or rhonchi. HEART: Regular rate and rhythm without murmurs ABDOMEN: Soft, nontender, normoactive bowel sounds. No rebound, guarding, or rigidity. No masses appreciated. EXTREMITIES: Pelvis stable, left hip tender to palpation with limited range of motion secondary to pain, left leg slightly shortened compared to right. no pitting or edema. NEUROLOGICAL: No focal neurological deficits. Moves all extremities spontaneously Motor and sensory grossly intact on exam. PSYCH: Normal mood, normal affect. SKIN: Warm, Dry, normal turgor, no rashes or lesions noted on exposed skin - Related Data Allergies/Adverse Reactions: Sulfa (Sulfonamide Antibiotics) Allergy (Verified 09/04/18 15:50) SWELLING AND ITCHING oxycodone [From Percocet] Adverse Reaction (Verified 09/04/18 15:50) Pruritis Past Medical History - Social History Smoking Status: Unknown if Ever Smoked Family History: Reviewed & Not Pertinent Patient has suicidal ideation: No Patient has homicidal ideation: No - Past Medical History Cardiac Medical History: Reports: Hx Hypertension Denies: Hx Coronary Artery Disease, Hx Heart Attack Pulmonary Medical History: Reports: Hx Asthma - CHILD Denies: Hx Bronchitis, Hx COPD, Hx Pneumonia Neurological Medical History: Denies: Hx Cerebrovascular Accident, Hx Seizures Endocrine Medical History: Denies: Hx Diabetes Mellitus Type 1, Hx Diabetes Mellitus Type 2 Renal/ Medical History: Denies: Hx Peritoneal Dialysis GI Medical History: Reports: Hx Ulcer. Denies: Hx Hepatitis, Hx Hiatal Hernia Musculoskeletal Medical History: Reports Hx Arthritis Psychiatric Medical History: Reports: Hx Depression Infectious Medical History: Denies: Hx Hepatitis Past Surgical History: Reports: Hx Abdominal Surgery - ulcer, Hx Hysterectomy. Denies: Hx Mastectomy, Hx Open Heart Surgery, Hx Pacemaker - Immunizations Hx Diphtheria, Pertussis, Tetanus Vaccination: No Hx Pneumococcal Vaccination: 12/31/14 Physical Exam - Vital signs Vitals: Temp Pulse Resp BP Pulse Ox 98.4 F 61 16 118/70 99 11/01/18 09:50 11/01/18 09:50 11/01/18 09:50 11/01/18 09:50 11/01/18 09:50 Course - Re-evaluation Re-evalutation: 11/01/18 10:19 Vitals reviewed. Nursing notes reviewed. Patient has tenderness to palpation of the left hip concerning for underlying hip fracture. She has been ordered morphine for pain. 11/01/18 12:58 Patient's x-ray showed no acute fracture however she is still having significant pain in the hip and CT scan was ordered for further evaluation. CT shows likely femoral capital fracture which is more consistent with her clinical picture. She is unable to stand. After receiving 4 mg IV morphine patient states her pain is unchanged and she was ordered fentanyl for further pain control. Basic lab work has been ordered for preop clearance. Laboratory 11/01/18 11/01/18 11:00 11:00 WBC 3.1 L RBC 3.61 L Hgb 11.3 L Hct 34.6 L MCV 96 MCH 31.4 MCHC 32.7 RDW 13.6 Plt Count 190 Seg Neutrophils % 71.5 Lymphocytes % 9.7 L Monocytes % 11.9 Eosinophils % 6.2 H Basophils % 0.7 Absolute Neutrophils 2.2 Absolute Lymphocytes 0.3 L Absolute Monocytes 0.4 Absolute Eosinophils 0.2 Absolute Basophils 0.0 Sodium 140.7 Potassium 4.3 Chloride 109 H Carbon Dioxide 26 Anion Gap 6 BUN 23 H Creatinine 1.50 H Est GFR ( Amer) 40 L Est GFR (Non-Af Amer) 33 L Glucose 84 Calcium 9.2 Hip X-Ray 11/01/18 09:46 IMPRESSION: No acute fracture or malalignment. No significant left hip joint space narrowing. Lower lumbar degenerative changes and fusion hardware at the edge of the field of view Cervical Spine CT 11/01/18 09:50 IMPRESSION: Mild anterolisthesis of C2 on C3. Multilevel degenerative disc disease, spondylosis, and facet arthropathy. Head CT 11/01/18 09:50 IMPRESSION: No acute findings EVIDENCE OF ACUTE STROKE: NO. Lower Extremity CT 11/01/18 11:00 IMPRESSION: Suspicious for nondisplaced left femoral capital fracture. If the patient has no contraindications, consider hip MRI. 11/01/18 13:55 Patient's lab work shows elevated creatinine compared to baseline concerning for AVA possibly secondary to dehydration. Her EKG shows sinus bradycardia with no STEMI. she was given IV fluids. 11/01/18 14:[address] Conteh who accepts transfer for Dr. Paez to [facility]. - Vital Signs Vital signs: Temp Pulse Resp BP Pulse Ox 98.4 F 61 16 118/70 99 11/01/18 09:50 11/01/18 09:50 11/01/18 09:50 11/01/18 09:50 11/01/18 09:50 - Laboratory Result Diagrams: 11/01/18 11:00 11/01/18 11:00 Laboratory results interpreted by me: 11/01/18 11/01/18 11:00 11:00 WBC 3.1 L RBC 3.61 L Hgb 11.3 L Hct 34.6 L Lymphocytes % 9.7 L Eosinophils % 6.2 H Absolute Lymphocytes 0.3 L Chloride 109 H BUN 23 H Creatinine 1.50 H Est GFR ( Amer) 40 L Est GFR (Non-Af Amer) 33 L - EKG Interpretation by Me Additional EKG results interpreted by me: 11/01/18 13:53 Interpreted by myself 1307: Sinus bradycardia, rate 57, normal axis, no ectopy, borderline R wave progression, no STEMI Discharge - Discharge Clinical Impression: AVA (acute kidney injury), Dehydration Closed left femoral fracture Qualifiers: Encounter type: initial encounter Femur location: head, unspecified portion Qualified Code(s): S72.052A - Unspecified fracture of head of left femur, initial encounter for closed fracture Condition: Stable Disposition: [facility] Referrals: CHRISTIANO BECKER MD [Primary Care Provider] - Follow up as needed
--- NOTE | 2018-11-01 10:24 | RADIOLOGY REPORT (SQ) ---
EXAM DESCRIPTION: HIP LEFT AP/LATERAL COMPLETED DATE/TIME: 11/01/2018 10:00 am REASON FOR STUDY: trauma COMPARISON: Left hip two views 08/03/2018 NUMBER OF VIEWS: Two views. TECHNIQUE: AP pelvis and additional frog-leg view of the left hip. LIMITATIONS: None. FINDINGS: MINERALIZATION: Normal. LEFT HIP: No fracture or dislocation. No worrisome bone lesions. No joint space narrowing or bulky bony spurring. RIGHT HIP: No fracture or dislocation. No worrisome bone lesions. No joint space narrowing or bulky bony spurring. PUBIS AND ISCHIUM: No fracture. PELVIS: No fracture. SACRUM: No fracture or dislocation. No worrisome bone lesions. LOWER LUMBAR SPINE: Lower lumbar spine fusion hardware with old bilateral laminectomy at L4. Degener ative convex leftward lumbar curvature SOFT TISSUES: No findings. OTHER: No other significant finding. IMPRESSION: No acute fracture or malalignment. No significant left hip joint space narrowing. Lower lumbar degenerative changes and fusion hardware at the edge of the field of view TECHNICAL DOCUMENTATION: JOB ID: [id number] [employer]- All Rights Reserved Reading location - IP/workstation name: [email or web address]
--- NOTE | 2018-11-01 11:02 | RADIOLOGY REPORT (SQ) ---
EXAM DESCRIPTION: CT HEAD WITHOUT COMPLETED DATE/TIME: 11/01/2018 10:47 am REASON FOR STUDY: trauma COMPARISON: CT brain 09/18/2018, 03/11/2007 MRI brain 12/19/2015 TECHNIQUE: Axial images acquired through the brain without intravenous contrast. Images reviewed wi th bone, brain and subdural windows. Additional sagittal and coronal reconstructions were generated. Images stored on PACS. All CT scanners at this facility use dose modulation, iterative reconstruction, and/or weight based d osing when appropriate to reduce radiation dose to as low as reasonably achievable (ALARA). [facility]: Dose Right [facility]: CareDose [facility]: Dose Right [facility]: Teradose 4D [facility]: [employer] RADIATION DOSE: CT Rad equipment meets quality standard of care and radiation dose reduction techniq ues were employed. CTDIvol: 53.2 mGy. DLP: 1124 mGy-cm. mGy. LIMITATIONS: None. FINDINGS: VENTRICLES: Normal size and contour. CEREBRUM: No masses. No hemorrhage. No midline shift. No evidence for acute infarction. Normal gra y/white matter differentiation. No areas of low density in the white matter. Benign bilateral basal ganglia calcifications CEREBELLUM: No masses. No hemorrhage. No alteration of density. No evidence for acute infarction. EXTRAAXIAL SPACES: No fluid collections. No masses. ORBITS AND GLOBE: No intra- or extraconal masses. Post cataract surgery. CALVARIUM: No fracture. PARANASAL SINUSES: No fluid or mucosal thickening. SOFT TISSUES: No mass or hematoma. OTHER: No other significant finding. IMPRESSION: No acute findings EVIDENCE OF ACUTE STROKE: NO. COMMENT: Quality ID # [id number]: Final reports with documentation of one or more dose reduction techniques (e.g., Automated exposure control, adjustment of the mA and/or kV according to patient size, use of iterative reconstruction technique) TECHNICAL DOCUMENTATION: JOB ID: [id number] [employer]- All Rights Reserved Reading location - IP/workstation name: [email or web address]
--- NOTE | 2018-11-01 11:02 | RADIOLOGY REPORT (SQ) ---
EXAM DESCRIPTION: CT CERVICAL SPINE WITHOUT COMPLETED DATE/TIME: 11/01/2018 10:47 am REASON FOR STUDY: trauma COMPARISON: None. TECHNIQUE: Axial images acquired through the cervical spine without intravenous contrast. Images re viewed with lung, soft tissue and bone windows. Reconstructed coronal and sagittal MPR images review ed. Images stored on PACS. All CT scanners at this facility use dose modulation, iterative reconstruction, and/or weight based d osing when appropriate to reduce radiation dose to as low as reasonably achievable (ALARA). [facility]: Dose Right [facility]: CareDose [facility]: Dose Right [facility]: Teradose 4D [facility]: [employer] RADIATION DOSE: CT Rad equipment meets quality standard of care and radiation dose reduction techniq ues were employed. CTDIvol: 17.3 mGy. DLP: 316 mGy-cm. mGy. LIMITATIONS: None. FINDINGS: ALIGNMENT: There is mild anterolisthesis of C2 on C3. MINERALIZATION: Normal. VERTEBRAL BODIES: No fractures or dislocation. DISCS: Disc spaces are narrowed from C3-C7. Small marginal osteophytes are present. FACETS, LATERAL MASSES, POSTERIOR ELEMENTS: Hypertrophic facet changes are present bilaterally, right slightly more than left. HARDWARE: None in the spine. VISUALIZED RIBS: No fractures. LUNG APICES AND SOFT TISSUES: No significant or acute findings. OTHER: No other significant finding. IMPRESSION: Mild anterolisthesis of C2 on C3. Multilevel degenerative disc disease, spondylosis, an d facet arthropathy. TECHNICAL DOCUMENTATION: JOB ID: [id number] Quality ID # [id number]: Final reports with documentation of one or more dose reduction techniques (e.g., Au tomated exposure control, adjustment of the mA and/or kV according to patient size, use of iterative reconstruction technique) 2010 [employer]- All Rights Reserved Reading location - IP/workstation name: [email or web address]
--- NOTE | 2018-11-01 12:01 | RADIOLOGY REPORT (SQ) ---
EXAM DESCRIPTION: CT LT LOWER EXTREMITY WITHOUT COMPLETED DATE/TIME: 11/01/2018 11:27 am REASON FOR STUDY: left hip pain COMPARISON: Recent radiographs TECHNIQUE: CT scan of the left hip performed without intravenous or oral contrast. Images reviewed with soft tissue and bone windows. Reconstructed coronal and sagittal MPR images reviewed. All imag es stored on PACS. All CT scanners at this facility use dose modulation, iterative reconstruction, and/or weight based d osing when appropriate to reduce radiation dose to as low as reasonably achievable (ALARA). [facility]: Dose Right [facility]: CareDose [facility]: Dose Right [facility]: Teradose 4D [facility]: [employer] RADIATION DOSE: CT Rad equipment meets quality standard of care and radiation dose reduction techniq ues were employed. CTDIvol: 4.1 mGy. DLP: 114 mGy-cm. mGy. LIMITATIONS: None. FINDINGS: PELVIC BONES: Left hemipelvis grossly intact. VISUALIZED SPINE: Not imaged. SYMPTOMATIC HIP: Left hip. Mild superomedial degenerative joint space narrowing. No evidence of robert tabular fracture. No subluxation or dislocation. Best demonstrated on coronal reconstructions, seri es 3 L1, lucency through the femoral head. This could represent a subtle nondisplaced femoral capita l fracture. Please correlate with image 25 and adjacent slices. OPPOSITE HIP: Not imaged. PELVIC SOFT TISSUES: Limited evaluation, unremarkable. EXTRAPELVIC SOFT TISSUES: No significant findings. OTHER: No other significant finding. IMPRESSION: Suspicious for nondisplaced left femoral capital fracture. If the patient has no contra indications, consider hip MRI. TECHNICAL DOCUMENTATION: JOB ID: [id number] Quality ID # [id number]: Final reports with documentation of one or more dose reduction techniques (e.g., Au tomated exposure control, adjustment of the mA and/or kV according to patient size, use of iterative reconstruction technique) 2010 [employer]- All Rights Reserved Reading location - IP/workstation name: [email or web address]
[2018-11-01] MEDS ORDERED: FENTANYL CITRATE INJ/PF 100 MCG/2 ML AMPUL IV ONE ×2 (12:57→20:30)
[2018-11-01 13:12] LABS: ABSOLUTE EOSINOPHILS # (AUTO) 0.2 10^3/uL (0.0-0.6); ABSOLUTE LYMPHOCYTES (AUTO) 0.3 10^3/uL (0.5-4.7); ABSOLUTE MONOCYTES (AUTO) 0.4 10^3/uL (0.1-1.4); ABSOLUTE NEUT (AUTO) 2.2 10^3/uL (1.7-8.2); BASOPHILS % (AUTO) 0.7 % (0-2); EOSINOPHILS % (AUTO) 6.2 % (0-6); HEMATOCRIT 34.6 % (36.0-47.0); HEMOGLOBIN 11.3 g/dL (12.0-15.5); LYMPHOCYTES % (AUTO) 9.7 % (13-45); MEAN CORPUSCULAR HEMOGLOBIN 31.4 pg (27.0-33.4); MEAN CORPUSCULAR HGB CONC 32.7 g/dL (32.0-36.0); MEAN CORPUSCULAR VOLUME 96 fl (80-97); MONOCYTES % (AUTO) 11.9 % (3-13); PLATELET COUNT 190 10^3/uL (150-450); RED BLOOD COUNT 3.61 10^6/uL (3.72-5.28); RED CELL DISTRIBUTION WIDTH 13.6 % (11.5-14.0); SEGMENTED NEUTROPHILS % (AUTO) 71.5 % (42-78); TOTAL CELLS COUNTED % (AUTO) 100 %; WHITE BLOOD COUNT 3.1 10^3/uL (4.0-10.5)
[2018-11-01 13:27] LABS: ANION GAP 6 (5-19); BLOOD UREA NITROGEN 23 mg/dL (7-20); CALCIUM 9.2 mg/dL (8.4-10.2); CARBON DIOXIDE 26 mmol/L (22-30); CHLORIDE 109 mmol/L (98-107); GLUCOSE 84 mg/dL (75-110); POTASSIUM 4.3 mmol/L (3.6-5.0); SODIUM 140.7 mmol/L (137-145)
[2018-11-01] MEDS ORDERED: NORMAL SALINE 1000 ML 1,000 ML IV ONE (13:54)
--- NOTE | 2018-11-01 17:57 | EKG REPORT ---
SEVERITY:- BORDERLINE ECG - SINUS RHYTHM BORDERLINE LEFT AXIS DEVIATION BORDERLINE R WAVE PROGRESSION, ANTERIOR LEADS : Confirmed by: Willy Mo 01-Nov-2018 17:56:42
--- NOTE | 2018-11-01 20:34 | ER Document Report ---
Doctor's Note Notes: 11/01/18 20:34 Transport is here to take the patient to [facility]. She is comfortable. Vital signs are stable. Patient is stable for transport at this time.
[2018-11-01 20:53] VITALS: BP 110/68
== END 2018-11-01 21:08 | disposition short-term general hospital (02) ==
LOC: ER 09:33
DX: S72.052A Unspecified fracture of head of left femur, initial encounter for closed fracture (principal); N17.9 Acute kidney failure, unspecified; M25.552 Pain in left hip; E86.0 Dehydration; W01.0XXA Fall on same level from slipping, tripping and stumbling without subsequent striking against object, initial encounter; I10 Essential (primary) hypertension; J45.909 Unspecified asthma, uncomplicated
CPT/HCPCS: 93005; 99285; 96361; 96374; 96375; 36415; 85025; 80048; 73502; 70450; 72125; 73700; 93010; J3010; J2270; J7030

== ENCOUNTER 2018-12-04 14:25 | Observation (INO) | payer MEDICARE, OTHER ==
[2018-12-04 15:54] LABS: ABSOLUTE EOSINOPHILS # (AUTO) 0.2 10^3/uL (0.0-0.6); ABSOLUTE LYMPHOCYTES (AUTO) 0.4 10^3/uL (0.5-4.7); ABSOLUTE MONOCYTES (AUTO) 0.4 10^3/uL (0.1-1.4); ABSOLUTE NEUT (AUTO) 2.8 10^3/uL (1.7-8.2); BASOPHILS % (AUTO) 0.8 % (0-2); EOSINOPHILS % (AUTO) 4.6 % (0-6); HEMATOCRIT 32.7 % (36.0-47.0); HEMOGLOBIN 10.9 g/dL (12.0-15.5); LYMPHOCYTES % (AUTO) 10.1 % (13-45); MEAN CORPUSCULAR HEMOGLOBIN 31.6 pg (27.0-33.4); MEAN CORPUSCULAR HGB CONC 33.4 g/dL (32.0-36.0); MEAN CORPUSCULAR VOLUME 95 fl (80-97); MONOCYTES % (AUTO) 10.2 % (3-13); PLATELET COUNT 163 10^3/uL (150-450); RED BLOOD COUNT 3.46 10^6/uL (3.72-5.28); RED CELL DISTRIBUTION WIDTH 13.6 % (11.5-14.0); SEGMENTED NEUTROPHILS % (AUTO) 74.3 % (42-78); TOTAL CELLS COUNTED % (AUTO) 100 %; WHITE BLOOD COUNT 3.8 10^3/uL (4.0-10.5)
--- NOTE | 2018-12-04 17:15 | RADIOLOGY REPORT (SQ) ---
EXAM DESCRIPTION: KNEE LEFT 2 VIEWS COMPLETED DATE/TIME: 12/04/2018 4:39 pm REASON FOR STUDY: LEFT KNEE PAIN/EFFUSION I15.8 OTHER SECONDARY HYPERTENSION COMPARISON: None. NUMBER OF VIEWS: Two views. TECHNIQUE: AP and lateral radiographic images acquired of the left knee. LIMITATIONS: None. FINDINGS: MINERALIZATION: Age-appropriate osteopenia BONES: No acute fracture or dislocation. No worrisome bone lesions. JOINT: Small suprapatellar knee joint effusion SOFT TISSUES: No soft tissue swelling. No radio-opaque foreign body. OTHER: No other significant finding. IMPRESSION: Small suprapatellar knee joint effusion could indicate internal derangement. TECHNICAL DOCUMENTATION: JOB ID: [id number] [employer]- All Rights Reserved Reading location - IP/workstation name: [email or web address]
--- NOTE | 2018-12-04 18:05 | PDOC CONSULTATION ---
Consultation Consult Date: 12/04/18 Attending physician:: GAIL DWYER Provider Consulted: WAN CROCKETT History of Present Illness Admission Date/PCP: 12/04/18 14:25 CHRISTIANO OSUNKROSI Patient complains of: Left knee pain History of Present Illness: KELLEY BAEZA is a 82 year old female with history of dementia who was directly admitted to the hospital for ambulatory dysfunction and left knee discomfort according to the nursing staff. Unfortunately given patient's dementia unable to obtain full accurate HPI. But according to the patient she does not complain of discomfort but complains of shaking of her leg especially while lying in bed and when ambulating. Denies numbness or tingling. Denies fall or mechanism of injury. Denies lower extremity weakness. Past Medical History Cardiac Medical History: Denies: Congestive Heart Failure, Coronary Artery Disease, Myocardial Infarction, Hypertension Pulmonary Medical History: Denies: Asthma, Bronchitis, Chronic Obstructive Pulmonary Disease (COPD), Pneumonia Neurological Medical History: Denies: Seizures Endocrine Medical History: Denies: Diabetes Mellitus Type 1, Diabetes Mellitus Type 2 Renal/ Medical History: Denies: End Stage Renal Disease GI Medical History: Denies: Cirrhosis, Gastroesophageal Reflux Disease, Hepatitis, Hiatal Hernia Musculoskeltal Medical History: Reports: Arthritis Psychiatric Medical History: Reports: Depression Denies: Bipolar Disorder Hematology: Denies: Anemia, Sickle Cell Disease, Bleeding Tendencies Past Surgical History Past Surgical History: Reports: Hysterectomy Denies: Amputation, Mastectomy, Pacemaker Social History Smoking Status: Never Smoker Frequency of Alcohol Use: None Hx Recreational Drug Use: No Drugs: None Hx Prescription Drug Abuse: No Family History Family History: Reviewed & Not Pertinent Parental Family History Reviewed: No Children Family History Reviewed: No Sibling(s) Family History Reviewed.: No Medication/Allergy Home Medications: Aspirin/Dipyridamole [Aggrenox 25 mg/200 mg Capsule SA] 1 cap.sr PO Q12 09/18/18 Duloxetine HCl [Cymbalta] 60 mg PO DAILY 09/18/18 Lorazepam [Ativan 0.5 mg Tablet] 0.5 mg PO QHS 09/18/18 Losartan/Hydrochlorothiazide [Hyzaar 100-12.5 Tablet] 1 each PO DAILY 09/18/18 Metoprolol Succinate [Toprol Xl 50 mg Tab.sr] 50 mg PO DAILY 09/18/18 Pregabalin [Lyrica 75 mg Capsule] 75 mg PO Q8 09/18/18 Rizatriptan Benzoate [Maxalt] 10 mg PO ASDIR PRN 09/18/18 Thyroid,Pork [Sheyenne Thyroid] 15 mg PO DAILY 09/18/18 Topiramate [Topamax 25 mg Tablet] 25 mg PO Q12 09/18/18 Lidocaine [Lidoderm 5% (700 mg) Transdermal Patch] 1 patch TP DAILY 12/04/18 Allergies/Adverse Reactions: Sulfa (Sulfonamide Antibiotics) Allergy (Verified 09/04/18 15:50) SWELLING AND ITCHING oxycodone [From Percocet] Adverse Reaction (Verified 09/04/18 15:50) Pruritis Review of Systems ROS unobtainable: Due to mental status Constitutional: ABSENT: chills, fever(s), headache(s), weight gain, weight loss Eyes: ABSENT: visual disturbances Ears: ABSENT: hearing changes Cardiovascular: ABSENT: chest pain, dyspnea on exertion, edema, orthropnea, palpitations Respiratory: ABSENT: cough, hemoptysis Gastrointestinal: ABSENT: abdominal pain, constipation, diarrhea, hematemesis, hematochezia, nausea, vomiting Genitourinary: ABSENT: dysuria, hematuria Integumentary: ABSENT: rash, wounds Neurological: ABSENT: abnormal gait, abnormal speech, confusion, dizziness, focal weakness, syncope Psychiatric: ABSENT: anxiety, depression, homidical ideation, suicidal ideation Endocrine: ABSENT: cold intolerance, heat intolerance, menstrual abnormalities, polydipsia, polyuria Hematologic/Lymphatic: ABSENT: easy bleeding, easy bruising, lymphadenopathy Physical Exam Vital Signs: Temp Pulse Resp BP Pulse Ox 98.3 F 57 L 14 140/67 H 97 12/04/18 14:58 12/04/18 14:58 12/04/18 14:58 12/04/18 14:58 12/04/18 14:58 Intake & Output 12/03/18 12/04/18 12/05/18 06:59 06:59 06:59 Weight 61.7 kg General appearance: PRESENT: no acute distress, well-developed, well-nourished Head exam: PRESENT: atraumatic, normocephalic Eye exam: PRESENT: conjunctiva pink, EOMI, PERRLA. ABSENT: scleral icterus Ear exam: PRESENT: normal external ear exam Mouth exam: PRESENT: moist, tongue midline Neck exam: PRESENT: full ROM. ABSENT: carotid bruit, JVD, lymphadenopathy, thyromegaly Respiratory exam: PRESENT: unlabored Cardiovascular exam: PRESENT: RRR. ABSENT: diastolic murmur, rubs, systolic murmur Pulses: PRESENT: normal dorsalis pedis pul, +2 pedal pulses bilateral Vascular exam: PRESENT: normal capillary refill GI/Abdominal exam: PRESENT: normal bowel sounds, soft. ABSENT: distended, guarding, mass, organolmegaly, rebound, tenderness Rectal exam: PRESENT: deferred Musculoskeletal exam: PRESENT: other - Left lower extremity: Mild effusion. No warmth. No pain with range of motion. No evidence of instability. No pain with hip range of motion including internal/external rotation. Intact straight leg raise. Resting tremor of the left lower extremity. Intact plantarflexion/dorsiflexion. No sensory deficits. Normal Babinski. Neurological exam: PRESENT: alert, awake, oriented to person, oriented to place, oriented to situation. ABSENT: motor sensory deficit Psychiatric exam: PRESENT: appropriate affect, normal mood. ABSENT: homicidal ideation, suicidal ideation Skin exam: PRESENT: dry, intact, warm. ABSENT: cyanosis, rash Results Laboratory Results: 12/04/18 15:30 12/04/18 15:30 WBC 3.8 L RBC 3.46 L Hgb 10.9 L Hct 32.7 L MCV 95 MCH 31.6 MCHC 33.4 RDW 13.6 Plt Count 163 Seg Neutrophils % 74.3 Lymphocytes % 10.1 L Monocytes % 10.2 Eosinophils % 4.6 Basophils % 0.8 Absolute Neutrophils 2.8 Absolute Lymphocytes 0.4 L Absolute Monocytes 0.4 Absolute Eosinophils 0.2 Absolute Basophils 0.0 Impressions: Knee X-Ray 12/04/18 00:00 IMPRESSION: Small suprapatellar knee joint effusion could indicate internal derangement. Status: Image reviewed by me - I have reviewed patient's radiographs which demon strates very mild suprapatellar effusion with mild patellofemoral degenerative changes no evidence of acute osseous abnormality. Minimal degeneration of the medial or lateral compartment. Assessment & Plan - Diagnosis (1) Left knee pain Qualifiers: Chronicity: chronic Qualified Code(s): M25.562 - Pain in left knee; G89.29 - Other chronic pain Is this a current diagnosis for this admission?: Yes Plan: Patient's radiographs demonstrate no evidence of acute abnormality furthermore patient does not complain of significant discomfort in her knee to suggest underlying acute osseous abnormality patient's major issue is the tremor in her left lower extremity which may be secondary to restless leg type variant versus systemic metabolic issue. At this point I have recommended physical therapy and weightbearing as tolerated. If patient has any further issues will be happy to reevaluate the patient again. Thank you for this consultation.
[2018-12-04] MEDS ORDERED: (PENDING PHARMACY ID) (Rizatriptan Benzoate [Maxalt] 10 MG) PO PRN (18:07)
[2018-12-04] MEDS: ACETAMINOPHEN 325 MG TABLET PO PRN (19:05)
[2018-12-04] MEDS: PREGABALIN 75 MG CAPSULE PO SCH (22:33)
[2018-12-04] MEDS: ASPIRIN/DIPYRIDAMOLE 25-200 MG 1 CAP.SR CPMP.12HR PO SCH (22:33)
[2018-12-04] MEDS: TOPIRAMATE 25 MG TABLET PO SCH (22:33)
[2018-12-04] MEDS: LORAZEPAM 0.5 MG TABLET PO SCH (22:33)
--- NOTE | 2018-12-04 23:48 | PDOC H&P ---
History of Present Illness Admission Date/PCP: 12/04/18 14:25 CHRISTIANO BECKER History of Present Illness: KELLEY BAEZA is a 82 year old female patient known to my practice who was recently discharged from [facility] about 6 days ago. She presented to the office earlier today with family caregiver complain about inability to ambulate at home since three days prior to her presentation. Son reported that patient suddenly developed sharp pain into her left knee and leg and subsequently was unable to walk. There was reported associated tremor in her left leg with attempt at walking. She and family denied any recent fall, instrumentation or injury to her left knee joint. She had to use wheelchair assistance during this office visit. Her initial evaluation in the office was suggestive of left knee effusion with expressed tenderness to palpation and passive range of motion. She denied any pain in her leg or posterior aspect of her knee joint. She denied any fever or chills. Her morbidities include hypertension, history of TIA, hyperlipidemia, hypothyroidism, osteoarthritis, lumbar degenerative disc disease, chronic low back pain with unsteady gait, mixed anxiety and depression. Past Medical History Cardiac Medical History: Reports: Hypertension Denies: Congestive Heart Failure, Coronary Artery Disease, Myocardial Infarction, Hyperlipidema Pulmonary Medical History: Denies: Asthma, Bronchitis, Chronic Obstructive Pulmonary Disease (COPD), Pneumonia Neurological Medical History: Reports: Other - TIA Denies: Seizures Endocrine Medical History: Reports: Hypothyroidism Denies: Diabetes Mellitus Type 1, Diabetes Mellitus Type 2 Renal/ Medical History: Denies: End Stage Renal Disease GI Medical History: Denies: Cirrhosis, Gastroesophageal Reflux Disease, Hepatitis, Hiatal Hernia Musculoskeltal Medical History: Reports: Arthritis Psychiatric Medical History: Reports: Depression Denies: Bipolar Disorder Hematology: Denies: Anemia, Sickle Cell Disease, Bleeding Tendencies Past Surgical History Past Surgical History: Reports: Hysterectomy Denies: Amputation, Mastectomy, Pacemaker Social History Smoking Status: Never Smoker Frequency of Alcohol Use: None Hx Recreational Drug Use: No Drugs: None Hx Prescription Drug Abuse: No - Advance Directive Resuscitation Status: Full Code Family History Family History: Reviewed & Not Pertinent Parental Family History Reviewed: Yes Children Family History Reviewed: Yes Sibling(s) Family History Reviewed.: Yes Medication/Allergy Home Medications: Aspirin/Dipyridamole [Aggrenox 25 mg/200 mg Capsule SA] 1 cap.sr PO Q12 09/18/18 Duloxetine HCl [Cymbalta] 60 mg PO DAILY 09/18/18 Lorazepam [Ativan 0.5 mg Tablet] 0.5 mg PO QHS 09/18/18 Losartan/Hydrochlorothiazide [Hyzaar 100-12.5 Tablet] 1 each PO DAILY 09/18/18 Metoprolol Succinate [Toprol Xl 50 mg Tab.sr] 50 mg PO DAILY 09/18/18 Pregabalin [Lyrica 75 mg Capsule] 75 mg PO Q8 09/18/18 Rizatriptan Benzoate [Maxalt] 10 mg PO ASDIR PRN 09/18/18 Thyroid,Pork [[place] Thyroid] 15 mg PO DAILY 09/18/18 Topiramate [Topamax 25 mg Tablet] 25 mg PO Q12 09/18/18 Lidocaine [Lidoderm 5% (700 mg) Transdermal Patch] 1 patch TP DAILY 12/04/18 Allergies/Adverse Reactions: Sulfa (Sulfonamide Antibiotics) Allergy (Verified 09/04/18 15:50) SWELLING AND ITCHING oxycodone [From Percocet] Adverse Reaction (Verified 09/04/18 15:50) Pruritis Review of Systems Constitutional: ABSENT: chills, fever(s), headache(s), weight gain, weight loss Eyes: PRESENT: visual disturbances Ears: ABSENT: hearing changes Nose, Mouth, and Throat: ABSENT: as per HPI, headache(s), mouth pain, sore throat, vertigo, other Cardiovascular: ABSENT: chest pain, dyspnea on exertion, edema, orthropnea, palpitations Respiratory: ABSENT: cough, hemoptysis Gastrointestinal: ABSENT: abdominal pain, constipation, diarrhea, hematemesis, hematochezia, nausea, vomiting Genitourinary: ABSENT: dysuria, hematuria Musculoskeletal: PRESENT: deformity - related to multiple jpoints involvement with arthritis, joint swelling Integumentary: ABSENT: rash, wounds Neurological: PRESENT: memory loss. ABSENT: abnormal gait, abnormal speech, confusion, dizziness, focal weakness, syncope Psychiatric: PRESENT: depression Endocrine: ABSENT: cold intolerance, heat intolerance, polydipsia, polyuria Hematologic/Lymphatic: ABSENT: easy bleeding, easy bruising, lymphadenopathy Allergic/Immunologic: ABSENT: seasonal rhinorrhea Physical Exam Vital Signs: Temp Pulse Resp BP Pulse Ox 98.3 F 57 L 14 140/67 H 97 12/04/18 14:58 12/04/18 14:58 12/04/18 14:58 12/04/18 14:58 12/04/18 14:58 Intake & Output 12/03/18 12/04/18 12/05/18 06:59 06:59 06:59 Intake Total 200 Balance 200 Weight 61.7 kg General appearance: PRESENT: mild distress - from left knee joint pain Head exam: PRESENT: atraumatic, normocephalic Eye exam: PRESENT: conjunctiva pink, EOMI, PERRLA. ABSENT: scleral icterus Ear exam: PRESENT: normal external ear exam Mouth exam: PRESENT: moist Neck exam: PRESENT: full ROM. ABSENT: carotid bruit, JVD, lymphadenopathy, thyromegaly Respiratory exam: PRESENT: clear to auscultation gretta Cardiovascular exam: PRESENT: RRR. ABSENT: diastolic murmur, rubs, systolic murmur Vascular exam: ABSENT: pallor GI/Abdominal exam: PRESENT: normal bowel sounds, soft. ABSENT: distended, guarding, mass, organolmegaly, rebound, tenderness Rectal exam: PRESENT: deferred Extremities exam: PRESENT: joint swelling - left knee joint, tenderness - left knee joint. ABSENT: pedal edema Musculoskeletal exam: PRESENT: tenderness - left knee joint. ABSENT: ambulatory Neurological exam: PRESENT: alert, awake - and appropriate in simple responses, oriented to person, oriented to place, oriented to time, oriented to situation, abnormal gait - due to left knee joint pasin, CN II-XII grossly intact. ABSENT: motor sensory deficit Psychiatric exam: PRESENT: appropriate affect, normal mood. ABSENT: homicidal ideation, suicidal ideation Skin exam: PRESENT: dry, warm Results Laboratory Results: 12/04/18 15:30 12/04/18 15:30 WBC 3.8 L RBC 3.46 L Hgb 10.9 L Hct 32.7 L MCV 95 MCH 31.6 MCHC 33.4 RDW 13.6 Plt Count 163 Seg Neutrophils % 74.3 Lymphocytes % 10.1 L Monocytes % 10.2 Eosinophils % 4.6 Basophils % 0.8 Absolute Neutrophils 2.8 Absolute Lymphocytes 0.4 L Absolute Monocytes 0.4 Absolute Eosinophils 0.2 Absolute Basophils 0.0 Impressions: Knee X-Ray 12/04/18 00:00 IMPRESSION: Small suprapatellar knee joint effusion could indicate internal derangement. Assessment & Plan - Diagnosis (1) Effusion of left knee joint Is this a current diagnosis for this admission?: Yes Plan: See admitting physician orders for details about care plan. Obtain orthopod consult input for possible arthrocentesis. (2) Left knee pain Qualifiers: Chronicity: acute Qualified Code(s): M25.562 - Pain in left knee Is this a current diagnosis for this admission?: Yes Plan: See admitting physician orders for details about care plan. (3) HTN (hypertension) Qualifiers: Hypertension type: essential hypertension Qualified Code(s): I10 - Essential (primary) hypertension Is this a current diagnosis for this admission?: Yes Plan: See admitting physician orders for details about care plan. 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 (5) History of TIA (transient ischemic attack) Is this a current diagnosis for this admission?: Yes Plan: See admitting physician orders for details about care plan. (6) Mixed anxiety and depressive disorder Is this a current diagnosis for this admission?: Yes Plan: See admitting physician orders for details about care plan. (7) Neuropathy Is this a current diagnosis for this admission?: Yes Plan: See admitting physician orders for details about care plan. (8) Osteoarthritis involving multiple joints on both sides of body Is this a current diagnosis for this admission?: Yes Plan: See admitting physician orders for details about care plan. (9) Sleep disorder Is this a current diagnosis for this admission?: Yes Plan: See admitting physician orders for details about care plan. - Time Time Spent: 50 to 70 Minutes Medications reviewed and adjusted accordingly: Yes Anticipated discharge: Home with Homehealth Within: Other - Inpatient Certification Based on my medical assessment, after consideration of the patient's comorbidities, presenting symptoms, or acuity I expect that the services needed warrant INPATIENT care.: No I certify that my determination is in accordance with my understanding of Medicare's requirements for reasonable and necessary INPATIENT services [42 CFR 412.3e].: No Medical Necessity: Significant Comorbidiites Make Outpatient Treatment Too Risky, Need Close Monitoring Due to Risk of Patient Decompensation, Need for Pain Control, Risk of Complication if Not Cared For in Hospital, Risk of Diagnosis Which Will Require Inpatient Eval/Care/Monitoring Post Hospital Care: D/C Polymer Tester Documentation - Plan Summary Plan Summary: Admit to observation bed. Obtain orthopedic consultation for further evaluation and management of her left knee pain with effusion. See admitting physician orders for details about care plan.
[2018-12-05 00:08] LABS: ALBUMIN 3.5 g/dL (3.5-5.0); ALKALINE PHOSPHATASE 64 U/L (38-126); ANION GAP 10 (5-19); ASPARTATE AMINO TRANSFERASE 21 U/L (14-36); BILIRUBIN,DIRECT 0.2 mg/dL (0.0-0.4); BILIRUBIN,TOTAL 0.2 mg/dL (0.2-1.3); BLOOD UREA NITROGEN 32 mg/dL (7-20); CALCIUM 9.2 mg/dL (8.4-10.2); CARBON DIOXIDE 23 mmol/L (22-30); CHLORIDE 105 mmol/L (98-107); GLUCOSE 78 mg/dL (75-110); POTASSIUM 3.6 mmol/L (3.6-5.0); TOTAL PROTEIN 6.5 g/dL (6.3-8.2)
[2018-12-05] MEDS: PREGABALIN 75 MG CAPSULE PO SCH ×3 (05:30→21:28)
[2018-12-05] MEDS: ASPIRIN/DIPYRIDAMOLE 25-200 MG 1 CAP.SR CPMP.12HR PO SCH ×2 (09:41→21:28)
[2018-12-05] MEDS: METOPROLOL SUCCINATE 50 MG TAB.SR.24H PO SCH (09:41)
[2018-12-05] MEDS: LOSARTAN POTASSIUM 50 MG TABLET PO SCH (09:41)
[2018-12-05] MEDS: DULOXETINE HCL 30 MG CAPSULE.DR PO SCH (09:42)
[2018-12-05] MEDS: TOPIRAMATE 25 MG TABLET PO SCH ×2 (09:42→21:28)
[2018-12-05] MEDS: LIDOCAINE 5% (700 MG) TRANSDERMAL ADH..PATCH TP SCH (09:43)
[2018-12-05] MEDS ORDERED: THYROID PORK 15 MG PO SCH (10:00)
[2018-12-05] MEDS ORDERED: (PENDING PHARMACY ID) (Losartan/Hydrochlorothiazide [Hyzaar 100-12.5 Tablet] 1 EACH) PO SCH (10:00)
[2018-12-05] MEDS ORDERED: HYDROCHLOROTHIAZIDE 12.5 MG TABLET PO SCH (10:00)
[2018-12-05] MEDS: ACETAMINOPHEN 325 MG TABLET PO PRN (13:34)
[2018-12-05] MEDS ORDERED: NORMAL SALINE 1000 ML 1,000 ML IV PRN (17:51)
--- NOTE | 2018-12-05 18:00 | PDOC PROGRESS REPORT ---
Subjective Progress Note for:: 12/05/18 Subjective:: No chest pain or difficulty with breathing. Participated in PT session this morning with good performance and devoid of knee pain.No nausea, vomiting or abdominal pain. Tolerating oral feeding. No fever or chills. Reason For Visit: LEFT KNEE INUSION, UNSTEADY GAIT AND BALANCE Physical Exam Vital Signs: Temp Pulse Resp BP Pulse Ox 98.0 F 57 L 17 130/72 H 99 12/05/18 16:39 12/05/18 16:39 12/05/18 16:39 12/05/18 16:39 12/05/18 16:39 Intake & Output 12/04/18 12/05/18 12/06/18 06:59 06:59 06:59 Intake Total 620 240 Output Total 1200 Balance 620 -960 Weight 61.7 kg General appearance: PRESENT: no acute distress Head exam: PRESENT: atraumatic, normocephalic Eye exam: PRESENT: conjunctiva pink. ABSENT: scleral icterus Ear exam: PRESENT: normal external ear exam Mouth exam: PRESENT: moist Respiratory exam: PRESENT: clear to auscultation gretta Cardiovascular exam: PRESENT: RRR. ABSENT: diastolic murmur, rubs, systolic murmur Vascular exam: ABSENT: pallor GI/Abdominal exam: PRESENT: normal bowel sounds, soft. ABSENT: distended, guarding, mass, organolmegaly, rebound, tenderness Musculoskeletal exam: ABSENT: tenderness Neurological exam: PRESENT: alert, awake - in simple responses, oriented to person, oriented to place, oriented to time, CN II-XII grossly intact, normal gait - with walker assistance. ABSENT: oriented to situation, motor sensory deficit Psychiatric exam: PRESENT: appropriate affect, normal mood. ABSENT: homicidal ideation, suicidal ideation Skin exam: PRESENT: dry, warm Results Laboratory Results: 12/04/18 15:30 12/04/18 23:48 12/04/18 23:48 Sodium 138.1 Potassium 3.6 Chloride 105 Carbon Dioxide 23 Anion Gap 10 BUN 32 H Creatinine 1.88 H Est GFR ( Amer) 31 L Est GFR (Non-Af Amer) 26 L Glucose 78 Calcium 9.2 Total Bilirubin 0.2 AST 21 Alkaline Phosphatase 64 Total Protein 6.5 Albumin 3.5 Impressions: Knee X-Ray 12/04/18 00:00 IMPRESSION: Small suprapatellar knee joint effusion could indicate internal derangement. 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 Qualified Code(s): E03.8 - Other specified hypothyroidism; E06.3 - Autoimmune thyroiditis Is this a current diagnosis for this admission?: Yes (5) History of TIA (transient ischemic attack) Is this a current diagnosis for this admission?: Yes (6) Mixed anxiety and depressive disorder Is this a current diagnosis for this admission?: Yes (7) Neuropathy Is this a current diagnosis for this admission?: Yes (8) Osteoarthritis involving multiple joints on both sides of body Is this a current diagnosis for this admission?: Yes (9) Sleep disorder Is this a current diagnosis for this admission?: Yes (10) Acute kidney injury Is this a current diagnosis for this admission?: Yes Plan: D/C HCTZ. Start on IV fluid Normal saline at 100 ml / hour. Obtain BMP in AM. - Time Time Spent with patient: 25-34 minutes Medications reviewed and adjusted accordingly: Yes Anticipated discharge: Home with Homehealth Within: within 24 hours - Inpatient Certification Based on my medical assessment, after consideration of the patient's comorbidities, presenting symptoms, or acuity I expect that the services needed warrant INPATIENT care.: Yes I certify that my determination is in accordance with my understanding of Medicare's requirements for reasonable and necessary INPATIENT services [42 CFR 412.3e].: Yes Medical Necessity: Significant Comorbidiites Make Outpatient Treatment Too Risky, Need Close Monitoring Due to Risk of Patient Decompensation, Need For IV Fluids, Risk of Complication if Not Cared For in Hospital, Risk of Diagnosis Which Will Require Inpatient Eval/Care/Monitoring Post Hospital Care: D/C Communication Spec Documentation - Plan Summary Plan Summary: I will keep patient for one more night due to her worsening kidney indices. Discontinue Hydrochlorothiazide usage. Start on IV fluid N/S at 100 mL/hour. Repeat BMP in AM.
[2018-12-05] MEDS: LORAZEPAM 0.5 MG TABLET PO SCH (21:28)
[2018-12-06] MEDS: PREGABALIN 75 MG CAPSULE PO SCH (05:16)
[2018-12-06 08:31] LABS: ANION GAP 7 (5-19); BLOOD UREA NITROGEN 24 mg/dL (7-20); CALCIUM 9.3 mg/dL (8.4-10.2); CARBON DIOXIDE 25 mmol/L (22-30); CHLORIDE 107 mmol/L (98-107); GLUCOSE 86 mg/dL (75-110); POTASSIUM 4.2 mmol/L (3.6-5.0)
[2018-12-06] MEDS: LIDOCAINE 5% (700 MG) TRANSDERMAL ADH..PATCH TP SCH (09:16)
[2018-12-06] MEDS: TOPIRAMATE 25 MG TABLET PO SCH (09:23)
[2018-12-06] MEDS: DULOXETINE HCL 30 MG CAPSULE.DR PO SCH (09:23)
[2018-12-06] MEDS: ASPIRIN/DIPYRIDAMOLE 25-200 MG 1 CAP.SR CPMP.12HR PO SCH (09:23)
[2018-12-06] MEDS: LOSARTAN POTASSIUM 50 MG TABLET PO SCH (09:24)
[2018-12-06] MEDS: METOPROLOL SUCCINATE 50 MG TAB.SR.24H PO SCH (09:26)
[2018-12-06 10:53] VITALS: BP 112/53
--- NOTE | 2018-12-06 18:37 | PDOC DISCHARGE SUMMARY ---
General - Admit/Disc Date/PCP Admission Date/Primary Care Provider: 12/04/18 14:25 CHRISTIANO EUGENIO Discharge Date: 12/06/18 - Discharge Diagnosis (1) Effusion of left knee joint Is this a current diagnosis for this admission?: Yes (2) Left knee pain Is this a current diagnosis for this admission?: Yes (3) HTN (hypertension) Is this a current diagnosis for this admission?: Yes (4) Hypothyroidism Is this a current diagnosis for this admission?: Yes (5) History of TIA (transient ischemic attack) Is this a current diagnosis for this admission?: Yes (6) Mixed anxiety and depressive disorder Is this a current diagnosis for this admission?: Yes (7) Neuropathy Is this a current diagnosis for this admission?: Yes (8) Osteoarthritis involving multiple joints on both sides of body Is this a current diagnosis for this admission?: Yes (9) Sleep disorder Is this a current diagnosis for this admission?: Yes (10) Acute kidney injury Is this a current diagnosis for this admission?: Yes - Additional Information Resuscitation Status: Full Code Discharge Diet: Regular Discharge Activity: Activity As Tolerated Prescriptions: Losartan Potassium 100 mg PO DAILY 30 Days tablet Home Medications: Aspirin/Dipyridamole [Aggrenox 25 mg/200 mg Capsule SA] 1 cap.sr PO Q12 09/18/18 Duloxetine HCl [Cymbalta] 60 mg PO DAILY 09/18/18 Lorazepam [Ativan 0.5 mg Tablet] 0.5 mg PO QHS 09/18/18 Metoprolol Succinate [Toprol Xl 50 mg Tab.sr] 50 mg PO DAILY 09/18/18 Pregabalin [Lyrica 75 mg Capsule] 75 mg PO Q8 09/18/18 Rizatriptan Benzoate [Maxalt] 10 mg PO ASDIR PRN 09/18/18 Thyroid,Pork [[place] Thyroid] 15 mg PO DAILY 09/18/18 Topiramate [Topamax 25 mg Tablet] 25 mg PO Q12 09/18/18 Lidocaine [Lidoderm 5% (700 mg) Transdermal Patch] 1 patch TP DAILY 12/04/18 Losartan Potassium 100 mg PO DAILY 30 Days tablet 12/06/18 History of Present Illness Patient complains of: Inability to ambulate History of Present Illness: KELLEY BAEZA is a 82 year old female patient known to my practice who was recently discharged from [facility] about 6 days ago. She presented to the office earlier today with family caregiver complain about inability to ambulate at home since three days prior to her presentation. Son reported that patient suddenly developed sharp pain into her left knee and leg and subsequently was unable to walk. There was reported associated tremor in her left leg with attempt at walking. She and family denied any recent fall, instrumentation or injury to her left knee joint. She had to use wheelchair assistance during this office visit. Her initial evaluation in the office was suggestive of left knee effusion with expressed tenderness to palpation and passive range of motion. She denied any pain in her leg or posterior aspect of her knee joint. She denied any fever or chills. Her morbidities include hypertension,hyperlipidemia, hypothyroidism, osteoarthritis, lumbar degenerative disc disease, chronic low back pain with unsteady gait, mixed anxiety and depression, and history of TIA. Hospital Course Hospital Course: Patient was seen inbn consultation by Dr. Coleman, orthopedic, due to concern about possible right knee jpint effusion as cause of her inability to ambulate and associated pain at presentation. Her knee X ray suggested pre-patella effusion but quantity was small to account for her symptoms or need for arthrocentesis. She was see by physical therapist and was able to ambulate with walker assistance without any pain or discomfort. There was noted unsteadiness with ambulation. Her renal indices were elevated suggestive of acute kidney injury necessitating IV hydration with normal saline. Repeat chemistry this morning revealed resolution of her elevated serum creatinine and improvement in her BUN. She will be discharged home without Hydrochlorothiazide composition of her antihypertensive medication regimen. She will be discharged with home health agency service including physical therapy.She will follow up in the office as instructed upon discharge. Physical Exam Vital Signs: Temp Pulse Resp BP Pulse Ox 98.5 F 54 L 16 135/63 H 98 12/06/18 07:37 12/06/18 07:37 12/06/18 07:37 12/06/18 07:37 12/06/18 07:37 Intake & Output 12/05/18 12/06/18 12/07/18 06:59 06:59 06:59 Intake Total 620 680 Output Total 1200 Balance 620 -520 Weight 61.7 kg 59.8 kg Physical Exam: General appearance: PRESENT: no acute distress Head exam: PRESENT: atraumatic, normocephalic Eye exam: PRESENT: conjunctiva pink. ABSENT: pallor, scleral icterus Ear exam: PRESENT: normal external ear exam Mouth exam: PRESENT: moist Respiratory exam: PRESENT: clear to auscultation gretta Cardiovascular exam: PRESENT: RRR. ABSENT: diastolic murmur, rubs, systolic murmur GI/Abdominal exam: PRESENT: normal bowel sounds, soft. ABSENT: distended, guarding, mass, organomegaly, rebound, tenderness Musculoskeletal exam: ABSENT: tenderness, edema Neurological exam: PRESENT: alert, awake - in simple responses, oriented to person, oriented to place, oriented to time, CN II-XII grossly intact, normal gait - with walker assistance. ABSENT: oriented to situation, motor sensory deficit Psychiatric exam: PRESENT: appropriate affect, normal mood. ABSENT: homicidal ideation, suicidal ideation Skin exam: PRESENT: dry, warm Results Laboratory Results: 12/04/18 15:30 12/06/18 08:00 12/06/18 08:00 Sodium 139.1 Potassium 4.2 Chloride 107 Carbon Dioxide 25 Anion Gap 7 BUN 24 H Creatinine 1.23 Est GFR ( Amer) 51 L Est GFR (Non-Af Amer) 42 L Glucose 86 Calcium 9.3 Impressions: Knee X-Ray 12/04/18 00:00 IMPRESSION: Small suprapatellar knee joint effusion could indicate internal derangement. Qualifiers - * PATIENT BEING DISCHARGED WITH ANY OF THE FOLLOWING DIAGNOSIS: No Acute Heart Failure - Is this a Heart Failure Patient?: No Plan Discharge Plan: D/C home today. Follow up in the office as instructed upon discharge.
== END 2018-12-06 11:30 | disposition home health service (06) ==
LOC: 5 14:25
PROVIDERS: ADMIT Internal Medicine Geriatric Medicine; ATTEND Internal Medicine Geriatric Medicine
DX: M25.462 Effusion, left knee (principal); G89.29 Other chronic pain; M25.562 Pain in left knee; I10 Essential (primary) hypertension; E06.3 Autoimmune thyroiditis; F41.3 Other mixed anxiety disorders; F32.9 Major depressive disorder, single episode, unspecified; G62.9 Polyneuropathy, unspecified; M15.9 Polyosteoarthritis, unspecified; G47.9 Sleep disorder, unspecified; N17.9 Acute kidney failure, unspecified; E78.5 Hyperlipidemia, unspecified; M51.36 Other intervertebral disc degeneration, lumbar region; R26.81 Unsteadiness on feet; F03.90 Unspecified dementia, unspecified severity, without behavioral disturbance, psychotic disturbance, mood disturbance, and anxiety; G43.719 Chronic migraine without aura, intractable, without status migrainosus; Z86.73 Personal history of transient ischemic attack (TIA), and cerebral infarction without residual deficits; Z79.899 Other long term (current) drug therapy; Z79.82 Long term (current) use of aspirin
CPT/HCPCS: 36415 ×2; 85025; 80048; 80053; 73560; 97530; 97162; G0378 ×3; G0379; A9270 ×20; J3490

== ENCOUNTER 2019-04-11 14:39 | Emergency (ER) | payer MEDICARE, OTHER ==
[2019-04-11 17:00] LABS: HEMATOCRIT 33.9 % (36.0-47.0); HEMOGLOBIN 11.4 g/dL (12.0-15.5); MEAN CORPUSCULAR HEMOGLOBIN 32.7 pg (27.0-33.4); MEAN CORPUSCULAR HGB CONC 33.7 g/dL (32.0-36.0); MEAN CORPUSCULAR VOLUME 97 fl (80-97); PLATELET COUNT 182 10^3/uL (150-450); RED BLOOD COUNT 3.49 10^6/uL (3.72-5.28); RED CELL DISTRIBUTION WIDTH 13.8 % (11.5-14.0); WHITE BLOOD COUNT 3.3 10^3/uL (4.0-10.5)
[2019-04-11 17:05] LABS: ALBUMIN 3.8 g/dL (3.5-5.0); ALKALINE PHOSPHATASE 53 U/L (38-126); ANION GAP 12 (5-19); ASPARTATE AMINO TRANSFERASE 22 U/L (14-36); BILIRUBIN,DIRECT 0.2 mg/dL (0.0-0.4); BILIRUBIN,TOTAL 0.4 mg/dL (0.2-1.3); BLOOD UREA NITROGEN 32 mg/dL (7-20); CALCIUM 9.4 mg/dL (8.4-10.2); CARBON DIOXIDE 23 mmol/L (22-30); CHLORIDE 106 mmol/L (98-107); GLUCOSE 110 mg/dL (75-110); POTASSIUM 3.3 mmol/L (3.6-5.0); TOTAL PROTEIN 7.1 g/dL (6.3-8.2)
--- NOTE | 2019-04-11 17:41 | EKG REPORT ---
SEVERITY:- ABNORMAL ECG - SINUS BRADYCARDIA LEFT VENTRICULAR HYPERTROPHY BORDERLINE T ABNORMALITIES, INFERIOR LEADS POOR R WAVE PROGRESSION CONSIDER OLD ANTERIOR NE VS LEAD PLACEMENT. : Confirmed by: Kt Newell MD 11-Apr-2019 17:40:50
--- NOTE | 2019-04-11 18:35 | ER Document Report ---
ED General - General TRAVEL OUTSIDE OF THE [place] IN LAST 30 DAYS: No - Related Data Home Medications: See Med Report <BIJALLIBERTAD - Last Filed: 04/11/19 20:04> <MARILU SOLIS - Last Filed: 04/12/19 00:02> - General Chief Complaint: Low Blood Pressure Stated Complaint: BLOOD PRESSURE ISSUES Time Seen by Provider: 04/11/19 18:09 Primary Care Provider: CHRISTIANO BECKER MD [Primary Care Provider] - Follow up tomorrow Notes: Patient is a 83-year-old female with a history of hypertension, TIA who presents emergency department with the chief complaint of low blood pressure. Patient was seen by Dr. Becker's office earlier today and was noted to have a blood pressure in the 70s systolic. On arrival to the emergency department her blood pressure was in the 90s systolic. Patient reports she has had intermittent diarrhea over the past 2 weeks. Patient reports that when the diarrhea occurs it happens multiple times in a short period of time. Patient reports her last episode of diarrhea was 3 days ago. Patient reports she has had a decreased appetite. Patient reports a decreased food and liquid intake. Patient denies fever, nausea or vomiting. Patient denies urinary symptoms. Patient denies chills or fever. (LIBERTAD APPIAH) - Related Data Allergies/Adverse Reactions: Sulfa (Sulfonamide Antibiotics) Allergy (Verified 02/14/19 10:42) SWELLING AND ITCHING oxycodone [From Percocet] Adverse Reaction (Verified 02/14/19 10:42) Pruritis Past Medical History - General Information source: Patient - Social History Smoking Status: Never Smoker Frequency of alcohol use: None Drug Abuse: None Lives with: Family Family History: Reviewed & Not Pertinent Patient has suicidal ideation: No Patient has homicidal ideation: No - Past Medical History Cardiac Medical History: Reports: Hx Hypertension Denies: Hx Congestive Heart Failure, Hx Coronary Artery Disease, Hx Heart Attack, Hx Hypercholesterolemia Pulmonary Medical History: Reports: None Denies: Hx Asthma, Hx Bronchitis, Hx COPD, Hx Pneumonia EENT Medical History: Reports: None Neurological Medical History: Reports: None. Denies: Hx Cerebrovascular Accident, Hx Seizures, Hx Parkinson's Disease Endocrine Medical History: Reports: Hx Hypothyroidism. Denies: Hx Diabetes Mellitus Type 1, Hx Diabetes Mellitus Type 2 Renal/ Medical History: Reports: None. Denies: Hx End Stage Renal Disease, Hx Kidney Stones, Hx Peritoneal Dialysis Malignancy Medical History: Reports: None GI Medical History: Reports: None. Denies: Hx Cirrhosis, Hx Gastroesophageal Reflux Disease, Hx Hepatitis, Hx Hiatal Hernia, Hx Ulcer Musculoskeletal Medical History: Reports Hx Arthritis, Denies Hx Multiple Sclerosis Skin Medical History: Reports None Psychiatric Medical History: Reports: Hx Depression Denies: Hx Bipolar Disorder, Hx Schizophrenia Traumatic Medical History: Reports: None Infectious Medical History: Reports: None. Denies: Hx Hepatitis Past Surgical History: Reports: Hx Abdominal Surgery - ulcer, Hx Hysterectomy. Denies: Hx Mastectomy, Hx Open Heart Surgery, Hx Pacemaker - Immunizations Hx Diphtheria, Pertussis, Tetanus Vaccination: No Hx Pneumococcal Vaccination: 12/31/14 <BIJALLIBERTAD - Last Filed: 04/11/19 20:04> Review of Systems - Review of Systems Constitutional: No symptoms reported EENT: No symptoms reported Cardiovascular: See HPI Respiratory: No symptoms reported Gastrointestinal: See HPI Genitourinary: No symptoms reported Female Genitourinary: No symptoms reported Musculoskeletal: No symptoms reported Skin: No symptoms reported Hematologic/Lymphatic: No symptoms reported Neurological/Psychological: No symptoms reported <BIJALLIBERTAD - Last Filed: 04/11/19 20:04> Physical Exam - Vital signs Interpretation: Normal <DALILA APPIAHECCA - Last Filed: 04/11/19 20:04> - Vital signs Vitals: Temp Pulse Resp BP Pulse Ox 98.1 F 59 L 14 97/51 L 96 04/11/19 14:48 04/11/19 14:48 04/11/19 14:48 04/11/19 14:48 04/11/19 14:48 - Notes Notes: GENERAL: Well-appearing, well-nourished and in no acute distress. HEAD: Atraumatic, normocephalic. EYES: Pupils equal round and reactive to light, extraocular movements intact, sclera anicteric, conjunctiva are normal. ENT: Nares patent, oropharynx clear without exudates. Moist mucous membranes. NECK: Normal range of motion, supple without lymphadenopathy or JVD. LUNGS: Breath sounds clear to auscultation bilaterally and equal. No wheezes rales or rhonchi. HEART: Regular rate and rhythm without murmurs, rubs or gallops. ABDOMEN: Soft, nontender, normoactive bowel sounds. No guarding, no rebound. No masses appreciated. BACK: No cervical, thoracic, lumbar midline tenderness. No saddle anesthesia, normal distal neurovascular exam. GENITOURINARY: Deferred. EXTREMITIES: Normal range of motion, no pitting or edema. No clubbing or cyanosis. NEUROLOGICAL: Cranial nerves II through XII grossly intact. Normal speech, normal gait. PSYCH: Normal mood, normal affect. SKIN: Warm, Dry, normal turgor, no rashes or lesions noted. (LIBERTAD APPIAH) Course - Laboratory Result Diagrams: 04/11/19 16:35 04/11/19 16:35 - Diagnostic Test Radiology reviewed: Reports reviewed <LIBERTAD APPIAH - Last Filed: 04/11/19 20:04> - Laboratory Result Diagrams: 04/11/19 16:35 04/11/19 16:35 <MARILU SOLIS - Last Filed: 04/12/19 00:02> - Re-evaluation Re-evalutation: 04/11/19 18:42 Upon initial assessment of the patient she is resting comfortably on stretcher and drinking liquids. Patient was noted to have an elevated BUN/creatinine which does not appear consistent with her previous visits. We will give a 500 mL bolus of fluids. Will obtain a urinalysis and ultimately seek consultation with Dr. Becker who is her primary care physician and who sent her here to the emergency department for an evaluation. Patient has no complaints at this time. Patient is normotensive, is not tachycardic or febrile. 04/11/19 20:04 As I was reading the nursing note it was stating that the patient was [facility] and is supposed to be wearing a c-collar. Patient reports she does not need the c-collar. I will order a soft collar. Report was given to Marilu solis nurse practitioner who will follow the patient's urinalysis results and contact Dr. Becker who is her primary care physician who did send the patient to the emergency room for a evaluation. (LIBERTAD APPIAH) 04/11/19 20:05 Report given to myself by ELLEN Serna. Will await urinalysis. 04/11/19 23:28 Patient's urinalysis shows large amount of leukocytes in her urine. She has 18 WBCs. She will be given Rocephin here in the emergency department. I will also start her on Keflex outpatient. Awaiting callback from Dr. Becker for complete discharge. 04/12/19 00:[address] Becker and he is in agreement with discharge on keflex. Urine culture will be sent. Follow-up precautions were given. Verbal discharge instructions were given to the patient. They verbalized understanding. They are stable for discharge. (MARILU SOLIS) - Vital Signs Vital signs: Temp Pulse Resp BP Pulse Ox 98.4 F 55 L 11 L 134/62 H 100 04/11/19 23:00 04/11/19 15:37 04/11/19 23:00 04/11/19 23:00 04/11/19 23:00 - Laboratory Laboratory results interpreted by me: 04/11/19 04/11/19 04/11/19 16:35 16:35 21:38 WBC 3.3 L RBC 3.49 L Hgb 11.4 L Hct 33.9 L Potassium 3.3 L BUN 32 H Creatinine 1.68 H Est GFR ( Amer) 35 L Est GFR (MDRD) Non-Af 29 L Ur Leukocyte Esterase LARGE H 04/11/19 18:42 Laboratory 04/11/19 04/11/19 16:35 16:35 WBC 3.3 L RBC 3.49 L Hgb 11.4 L Hct 33.9 L MCV 97 MCH 32.7 MCHC 33.7 RDW 13.8 Plt Count 182 Sodium 140.9 Potassium 3.3 L Chloride 106 Carbon Dioxide 23 Anion Gap 12 BUN 32 H Creatinine 1.68 H Est GFR ( Amer) 35 L Est GFR (MDRD) Non-Af 29 L Glucose 110 Calcium 9.4 Total Bilirubin 0.4 Direct Bilirubin 0.2 Neonat Total Bilirubin Not Reportable Neonat Direct Bilirubin Not Reportable Neonat Indirect Bili Not Reportable AST 22 ALT 15 Alkaline Phosphatase 53 Total Protein 7.1 Albumin 3.8 (LIBERTAD APPIAH) - Diagnostic Test Radiology results interpreted by me: 04/11/19 20:04 Chest X-Ray 04/11/19 18:43 IMPRESSION: NO ACUTE RADIOGRAPHIC FINDING IN THE CHEST. (LIBERTAD APPIAH) Discharge <LIBERTAD APPIAH - Last Filed: 04/11/19 20:04> <MARILU SOLIS - Last Filed: 04/12/19 00:02> - Discharge Clinical Impression: Urinary tract infection Qualifiers: Urinary tract infection type: acute cystitis Hematuria presence: without hematuria Qualified Code(s): N30.00 - Acute cystitis without hematuria Hypotension Qualifiers: Hypotension type: unspecified hypotension type Qualified Code(s): I95.9 - Hypotension, unspecified Condition: Stable Disposition: HOME, SELF-CARE Instructions: Cephalexin ([facility]), Urinary Tract Infection ([facility]) Additional Instructions: You were seen today in the emergency department for low blood pressure. You have a urinary tract infection. Your urine shows findings consistent with a urinary tract infection. Please take all the antibiotics as directed even if your symptoms have improved. Please follow-up with your primary care physician as needed. Return to emergency room if you develop fever >101F, persistent vomiting, become lethargic, have severe pain in your sides, or any other sy mptoms that are concerning to you. Prescriptions: Cephalexin [Keflex] 500 mg PO BID #14 capsule Referrals: CHRISTIANO BECKER MD [Primary Care Provider] - Follow up tomorrow
[2019-04-11] MEDS ORDERED: NORMAL SALINE 500 ML IV ONE (18:36)
--- NOTE | 2019-04-11 19:37 | RADIOLOGY REPORT (SQ) ---
EXAM DESCRIPTION: CHEST 2 VIEWS COMPLETED DATE/TIME: 04/11/2019 7:27 pm REASON FOR STUDY: generalized weakness COMPARISON: 09/18/2018 EXAM PARAMETERS: NUMBER OF VIEWS: two views TECHNIQUE: Digital Frontal and Lateral radiographic views of the chest acquired. RADIATION DOSE: NA LIMITATIONS: none FINDINGS: LUNGS AND PLEURA: No opacities, masses or pneumothorax. No pleural effusion. MEDIASTINUM AND HILAR STRUCTURES: No masses or contour abnormalities. HEART AND VASCULAR STRUCTURES: Heart normal size. No evidence for failure. BONES: Serpiginous thoracolumbar curvature. Partially evaluated lumbar fusion hardware. HARDWARE: Lumbar fusion hardware. Surgical clips overlie upper abdomen. OTHER: No other significant finding. IMPRESSION: NO ACUTE RADIOGRAPHIC FINDING IN THE CHEST. TECHNICAL DOCUMENTATION: JOB ID: [id number] [employer]- All Rights Reserved Reading location - IP/workstation name: [email or web address]
[2019-04-11] MEDS ORDERED: POTASSIUM CHLORIDE 10 MEQ TABLET.ER PO ONE (20:02)
[2019-04-11 22:46] LABS: APPEARANCE,URINE CLEAR; BILIRUBIN,URINE NEGATIVE (NEGATIVE); COLOR,URINE YELLOW; GLUCOSE, URINE NEGATIVE (NEGATIVE); KETONES,URINE NEGATIVE (NEGATIVE); LEUKOCYTE ESTERASE,URINE LARGE (NEGATIVE); NITRITE,URINE NEGATIVE (NEGATIVE); PROTEIN,URINE NEGATIVE (NEGATIVE); URINE SPECIFIC GRAVITY 1.014; UROBILINOGEN,URINE NEGATIVE mg/dL (<2.0)
[2019-04-11] MEDS ORDERED: CEFTRIAXONE INJ 1000 MG VIAL IV ONE (23:21)
[2019-04-12 00:27] VITALS: BP 122/76
== END 2019-04-12 00:27 | disposition home or self-care (01) ==
LOC: ER 14:39
DX: N30.00 Acute cystitis without hematuria (principal); I95.9 Hypotension, unspecified; I10 Essential (primary) hypertension; Z90.710 Acquired absence of both cervix and uterus; Z88.2 Allergy status to sulfonamides; Z88.6 Allergy status to analgesic agent
CPT/HCPCS: 93005; 36415; 85027; 80053; 81001; 71046; 93010; J0696; J7040; A9270; 96361; 96365; 99285

== ENCOUNTER 2019-12-26 09:31 | Emergency (ER) | payer MEDICARE, OTHER ==
--- NOTE | 2019-12-26 10:00 | ER Document Report ---
ED Blood Pressure Problem - General Chief Complaint: High Blood Pressure Stated Complaint: BLOOD PRESSURE ISSUE Time Seen by Provider: 12/26/19 09:57 Primary Care Provider: CHRISTIANO BECKER MD [Primary Care Provider] - Follow up as needed TRAVEL OUTSIDE OF THE [place] IN LAST 30 DAYS: No - HPI Notes: 84-year-old female presents with high blood pressure. Patient states that she woke up this morning and took her blood pressure, it was 200/89, she was advised to come to the emergency department. This was before medication. She is on metoprolol and losartan, she reports compliance with both these medications, did not take this today however given her trip to the ED. Patient denies symptoms. No chest pain, shortness of breath, nausea vomiting or diarrhea, headache. Lilly ent states that she had an episode last week where she went from sitting to standing and had some lightheadedness. Patient also states that 2 days ago she accidentally fell, she could not get up off the floor and her son had to get her up. She denies any injuries from this. - Related Data Allergies/Adverse Reactions: Sulfa (Sulfonamide Antibiotics) Allergy (Verified 12/26/19 09:37) SWELLING AND ITCHING oxycodone [From Percocet] Adverse Reaction (Verified 12/26/19 09:37) Pruritis Home Medications: aggrenox, losartan, metoprolol, armour thyroid.... Past Medical History - General Information source: Patient - Social History Smoking Status: Never Smoker Chew tobacco use (# tins/day): No Frequency of alcohol use: None Drug Abuse: None Family History: Reviewed & Not Pertinent Patient has homicidal ideation: No - Past Medical History Cardiac Medical History: Reports: Hx Hypertension Denies: Hx Congestive Heart Failure, Hx Coronary Artery Disease, Hx Heart Attack, Hx Hypercholesterolemia Pulmonary Medical History: Denies: Hx Asthma, Hx Bronchitis, Hx COPD, Hx Pneumonia Neurological Medical History: Denies: Hx Cerebrovascular Accident, Hx Seizures, Hx Parkinson's Disease Endocrine Medical History: Reports: Hx Hypothyroidism. Denies: Hx Diabetes Mellitus Type 1, Hx Diabetes Mellitus Type 2 Renal/ Medical History: Denies: Hx End Stage Renal Disease, Hx Kidney Stones, Hx Peritoneal Dialysis GI Medical History: Denies: Hx Cirrhosis, Hx Gastroesophageal Reflux Disease, Hx Hepatitis, Hx Hiatal Hernia, Hx Ulcer Musculoskeletal Medical History: Reports Hx Arthritis, Denies Hx Multiple Sclero sis Psychiatric Medical History: Reports: Hx Depression Denies: Hx Bipolar Disorder, Hx Schizophrenia Infectious Medical History: Denies: Hx Hepatitis Past Surgical History: Reports: Hx Abdominal Surgery - ulcer, Hx Hysterectomy. Denies: Hx Mastectomy, Hx Open Heart Surgery, Hx Pacemaker - Immunizations Hx Diphtheria, Pertussis, Tetanus Vaccination: No Hx Pneumococcal Vaccination: 12/31/14 Review of Systems - Review of Systems Constitutional: denies: Fever EENT: No symptoms reported Cardiovascular: denies: Chest pain Respiratory: denies: Short of breath Gastrointestinal: denies: Abdominal pain Genitourinary: No symptoms reported Female Genitourinary: No symptoms reported Musculoskeletal: denies: Joint pain Skin: No symptoms reported Hematologic/Lymphatic: No symptoms reported Neurological/Psychological: denies: Headaches Physical Exam - Vital signs Vitals: Temp Pulse Resp BP Pulse Ox 98.3 F 70 16 150/83 H 97 12/26/19 09:35 12/26/19 09:35 12/26/19 09:35 12/26/19 09:35 12/26/19 09:35 - General General appearance: Appears well In distress: None - HEENT Head: Normocephalic, Atraumatic Extraocular movements intact: Yes Pupils: PERRL Neck: Other - No midline tenderness - Respiratory Chest status: Nontender Breath sounds: Normal - Cardiovascular Rhythm: Regular Heart sounds: Normal auscultation Normal capillary refill: Yes - Abdominal Tenderness: Nontender - Extremities General lower extremity: No: Edema - Neurological Neuro grossly intact: Yes Cognition: Normal Orientation: AAOx4 Cranial nerves: Normal Motor strength normal: LUE, RUE, LLE, RLE Sensory: Normal - Psychological Associated symptoms: Normal affect - Skin Skin Temperature: Warm Course - Re-evaluation Re-evalutation: 84-year-old female presents with high blood pressure at home. Patient has taken her blood pressure before her medications. I suspect this to be the cause of her elevated blood pressure. Blood pressure 150/83, then 142/57 on repeat. She does not express any symptoms. She is neurologically intact. Given that she had a fall 2 days ago, will CT head to assure that no bleed is present, though low suspicion. We will give her usual home dose of medications now. 12/26/19 10:55 Labs reviewed. Mild leukopenia, fairly similar to previous. No neutropenia. Electrolytes within normal limits. Creatinine within normal limits and improved from previous. CT head images reviewed, radiology report reviewed, per radiology there is no acute intracranial abnormality. 12/26/19 10:57 Patient and son updated on results. She remains asymptomatic. She is received her morning meds. Encourage PCP follow-up. Try taking blood pressure after morning meds. Return precautions given, stable at time of discharge. - Vital Signs Vital signs: Temp Pulse Resp BP Pulse Ox 98.3 F 70 17 149/73 H 95 12/26/19 09:35 12/26/19 09:35 12/26/19 10:59 12/26/19 11:00 12/26/19 10:59 - Laboratory Result Diagrams: 12/26/19 09:50 12/26/19 09:50 Laboratory results interpreted by me: 12/26/19 12/26/19 09:50 09:50 WBC 2.8 L Eos % (Auto) 9.2 H Chloride 111 H Est GFR ( Amer) 54 L Est GFR (MDRD) Non-Af 45 L Discharge - Discharge Clinical Impression: Asymptomatic hypertension Condition: Stable Disposition: HOME, SELF-CARE Additional Instructions: Please continue all medications as prescribed. Please have close follow-up with your primary care doctor. Try to take your blood pressure after taking her medications to ensure that this is an appropriate value. To the emergency room for any concerning worsening symptoms. Referrals: CHRISTIANO BECKER MD [Primary Care Provider] - Follow up as needed
[2019-12-26 10:09] LABS: ABSOLUTE EOSINOPHILS # (AUTO) 0.3 10^3/uL (0.0-0.6); ABSOLUTE LYMPHOCYTES (AUTO) 0.5 10^3/uL (0.5-4.7); ABSOLUTE MONOCYTES (AUTO) 0.3 10^3/uL (0.1-1.4); ABSOLUTE NEUT (AUTO) 1.7 10^3/uL (1.7-8.2); BASOPHILS % (AUTO) 1.1 % (0-2); EOSINOPHILS % (AUTO) 9.2 % (0-6); HEMATOCRIT 36.6 % (36.0-47.0); HEMOGLOBIN 12.1 g/dL (12.0-15.5); LYMPHOCYTES % (AUTO) 17.5 % (13-45); MEAN CORPUSCULAR HEMOGLOBIN 32.2 pg (27.0-33.4); MEAN CORPUSCULAR HGB CONC 33.2 g/dL (32.0-36.0); MEAN CORPUSCULAR VOLUME 97 fl (80-97); MONOCYTES % (AUTO) 11.5 % (3-13); PLATELET COUNT 196 10^3/uL (150-450); RED BLOOD COUNT 3.77 10^6/uL (3.72-5.28); RED CELL DISTRIBUTION WIDTH 13.8 % (11.5-14.0); SEGMENTED NEUTROPHILS % (AUTO) 60.7 % (42-78); TOTAL CELLS COUNTED % (AUTO) 100 %; WHITE BLOOD COUNT 2.8 10^3/uL (4.0-10.5)
[2019-12-26] MEDS ORDERED: LOSARTAN POTASSIUM 50 MG TABLET PO ONE (10:13)
[2019-12-26] MEDS ORDERED: METOPROLOL SUCCINATE 50 MG TAB.SR.24H PO ONE (10:13)
[2019-12-26 10:33] LABS: INTERNATIONAL RATION (INR) 0.94; PROTHROMBIN TIME 12.7 SEC (11.4-15.4)
[2019-12-26 10:38] LABS: ALKALINE PHOSPHATASE 69 U/L (38-126); ANION GAP 7 (5-19); ASPARTATE AMINO TRANSFERASE 30 U/L (14-36); BILIRUBIN,DIRECT 0.3 mg/dL (0.0-0.4); BILIRUBIN,TOTAL 0.4 mg/dL (0.2-1.3); BLOOD UREA NITROGEN 20 mg/dL (7-20); CALCIUM 9.4 mg/dL (8.4-10.2); CARBON DIOXIDE 25 mmol/L (22-30); CHLORIDE 111 mmol/L (98-107); GLUCOSE 96 mg/dL (75-110); POTASSIUM 4.2 mmol/L (3.6-5.0); TOTAL PROTEIN 7.4 g/dL (6.3-8.2)
--- NOTE | 2019-12-26 10:48 | RADIOLOGY REPORT (SQ) ---
EXAM DESCRIPTION: CT HEAD WITHOUT IMAGES COMPLETED DATE/TIME: 12/26/2019 10:40 am REASON FOR STUDY: fell 2d ago, eval trauma COMPARISON: 11/01/2018 TECHNIQUE: Axial images acquired through the brain without intravenous contrast. Images reviewed wi th bone, brain and subdural windows. Additional sagittal and coronal reconstructions were generated. Images stored on PACS. All CT scanners at this facility use dose modulation, iterative reconstruction, and/or weight based d osing when appropriate to reduce radiation dose to as low as reasonably achievable (ALARA). [facility]: Dose Right [facility]: CareDose [facility]: Dose Right [facility]: Teradose 4D [facility]: [employer] RADIATION DOSE: CT Rad equipment meets quality standard of care and radiation dose reduction techniq ues were employed. CTDIvol: 53.2 mGy. DLP: 1124 mGy-cm. mGy. LIMITATIONS: None. FINDINGS: VENTRICLES: Prominent. CEREBRUM: No masses. No hemorrhage. No midline shift. Areas of low density in the white matter mos t likely due to chronic micro-vascular ischemic change. No evidence for acute infarction. There is physiologic calcification in both basal ganglia. CEREBELLUM: No masses. No hemorrhage. No alteration of density. No evidence for acute infarction. EXTRAAXIAL SPACES: Mild age-related involutional change. No fluid collections. No masses. ORBITS AND GLOBE: No intra- or extraconal masses. Normal contour of globe without masses. CALVARIUM: No fracture. PARANASAL SINUSES: No fluid or mucosal thickening. SOFT TISSUES: No mass or hematoma. OTHER: No other significant finding. IMPRESSION: MILD CHRONIC CHANGES OF ATROPHY AND MICROVASCULAR ISCHEMIA. NO ACUTE PROCESS. EVIDENCE OF ACUTE STROKE: NO. TECHNICAL DOCUMENTATION: JOB ID: [id number] Quality ID # [id number]: Final reports with documentation of one or more dose reduction techniques (e.g., Au tomated exposure control, adjustment of the mA and/or kV according to patient size, use of iterative reconstruction technique) 2010 [employer]- All Rights Reserved Reading location - IP/workstation name: [email or web address]
[2019-12-26 11:17] VITALS: BP 149/73
== END 2019-12-26 11:18 | disposition home or self-care (01) ==
LOC: ER 09:31
DX: Z04.3 Encounter for examination and observation following other accident (principal); I10 Essential (primary) hypertension; R42 Dizziness and giddiness; D72.819 Decreased white blood cell count, unspecified; E03.9 Hypothyroidism, unspecified; Z79.01 Long term (current) use of anticoagulants; Z79.899 Other long term (current) drug therapy; Z88.2 Allergy status to sulfonamides
CPT/HCPCS: 99284; 36415; 85025; 85610; 80053; 70450; A9270 ×2

== ENCOUNTER → 2020-02-01 | Outpatient (CLI) | payer MEDICARE, OTHER ==
--- NOTE | 2020-02-01 12:15 | RADIOLOGY REPORT (SQ) ---
EXAM DESCRIPTION: U/S ABDOMEN LIMITED W/O DOP IMAGES COMPLETED DATE/TIME: 02/01/2020 10:36 am REASON FOR STUDY: R11.0 NAUSEA R11.0 NAUSEA COMPARISON: None. TECHNIQUE: Dynamic and static grayscale images acquired of the abdomen and recorded on PACS. Crisso dominguez selected color Doppler and spectral images recorded. LIMITATIONS: None. FINDINGS: PANCREAS: No masses. Visualized pancreatic duct normal caliber. LIVER: No masses. Echotexture normal. LIVER VASCULATURE: Normal directional flow of the main portal vein and hepatic veins. GALLBLADDER: No stones. Normal wall thickness. No pericholecystic fluid. ULTRASOUND-DETECTED OMALLEY'S SIGN: Negative. INTRAHEPATIC DUCTS AND COMMON DUCT: CBD and intrahepatic ducts normal caliber. No filling defects. AORTA: No aneurysm. Atherosclerosis is present. RIGHT KIDNEY: Normal size 9.3 cm. Normal echogenicity. No solid or suspicious masses. No hydronephro sis. There is an echogenic focus in the lower pole suggestive of an intrarenal calculus. PERITONEAL AND RIGHT PLEURAL SPACE: No ascites or effusions. OTHER: No other significant findings. IMPRESSION: Right intrarenal calculus. Aortic atherosclerosis. Normal gallbladder and liver. TECHNICAL DOCUMENTATION: JOB ID: [id number] 2010 [employer]- All Rights Reserved Reading location - IP/workstation name: [email or web address]
== END ==
LOC: RAD 09:34
PROVIDERS: ATTEND Internal Medicine Gastroenterology
DX: I70.0 Atherosclerosis of aorta (principal); N20.0 Calculus of kidney; R11.0 Nausea
CPT/HCPCS: 76705